=== PATIENT | female | born 1970 | race Caucasian/White ===

== ENCOUNTER → 2016-06-05 | Outpatient (REF) | payer MEDICARE ==
[~2016-06-05] MED LIST: /ADVA50050 IN; ACETAMINOPHEN PO; ADV250INH INH; AMBI10TA PO; ASTE137S; ASTELIN NASAL INH; AUGM875T27 PO; CHAN0.5P6 PO; CIPR500T19 OR; COLA100C2 OR; COLA50CA3 PO; CRESTOR PO; CYCLOBENZAPRINE PO; FISHCAP PO; FLAG500T OR; FLEXARIL PO; FLOV110A IN; FLOVENT HFA INH; FLUTICASONE; HYDR-3716 PO; HYDROCODONE PO; IBUP600T OR; IBUPPOW25 PO; LEVOTHYROXINE PO; LOVA1CAP16 OR; LOVAZA PO; LYRI75CA PO; LYRICA PO; NEXIUM PO; OXYC-274 PO; OXYC-299 PO; OXYC30TA4 PO; PANT40TA2 PO; PERC5TAB6 PO; PERCOCET PO; SYNT75TA PO; TYLE325T5 PO; VENTOLIN INHALER INH; VICO5TAB OR; VICO5TAB16 PO; VICOBULK OR; VITA200010 PO; VITAMIN D PO; WARF-18 PO; ZANA2CAP PO; ZOFR20TA PO; [UNRECOGNIZED DRUG - OTHER]; albuterol inhaler INH; vicodin
[2016-06-05 17:35] LABS: ALBUMIN 4.1 GM/DL (3.2-5.2); PERCENT SATURATION 15.5 % (13.2-37.4)
[2016-06-05 18:08] LABS: INR 1.11
[2016-06-05 18:42] LABS: BASO % 0.5 % (0.0-1.0); EOS # 0.3 K/mm3 (0.0-0.50); EOS % 4.7 % (0.0-3.0); LARGE UNSTAINED CELL # 0.1 K/mm3 (0.0-0.4); LARGE UNSTAINED CELL % 1.7 % (0.0-4.0); LYMPH # 2.5 K/mm3 (1.5-4.5); LYMPH % 33.8 % (24.0-44.0); MEAN CORPUSCULAR HEMOGLOBIN 31.1 pg (27.0-33.0); MEAN CORPUSCULAR HGB CONC 34.3 g/dl (32.0-36.5); MEAN CORPUSCULAR VOLUME 90.7 fl (80.0-96.0); MONO # 0.3 K/mm3 (0.0-0.8); MONO % 4.3 % (0.0-5.0); NEUTROPHILS # 3.8 K/mm3 (1.8-7.7); NEUTROPHILS % 55.1 % (36.0-66.0); PLATELET COUNT, AUTOMATED 219 k/mm3 (150-450); RED CELL DISTRIBUTION WIDTH 12.5 % (11.5-14.5)
== END ==
LOC: M LABDRAWC 16:16
PROVIDERS: ATTEND Orthopaedic Surgery
DX: M25.559 Pain in unspecified hip (principal); M16.11 Unilateral primary osteoarthritis, right hip; F17.200 Nicotine dependence, unspecified, uncomplicated

== ENCOUNTER 2016-12-20 01:17 | Emergency (ER) | payer MEDICARE ==
[~2016-12-20] VITALS: Ht 165.1 cm; Wt 104.5 kg
[~2016-12-20 01:17] MED LIST changes: +OXYC-141 PO; -OXYC-299 PO; +PERC5TAB12 PO; -PERC5TAB6 PO
[2016-12-20] MEDS ORDERED: ONDANSETRON 4MG/2ML VIAL (J2405) IV ONE (02:15)
[2016-12-20] MEDS: MORPHINE 4 MG/ML 1ML SYRINGE IV PRN ×2 (02:40→04:51)
[2016-12-20] MEDS ORDERED: NS 1,000 ML IV SCH (02:44)
[2016-12-20] MEDS ORDERED: PROPOFOL 200 MG/20 ML VIAL IV PRN (02:45)
[2016-12-20] MEDS ORDERED: KETAMINE HCL 200 MG/20 ML VIAL IV ONE (02:45)
[2016-12-20 03:25] VITALS: O2SAT 100
[2016-12-20 03:55] VITALS: BP 117/59
[2016-12-20] MEDS ORDERED: OXYCODONE/APAP 5MG/325MG(BULK FOR ED) 1 TABLET PO ONE (05:00)
--- NOTE | 2016-12-20 08:11 | REP ---
Clinical: Post reduction. Technique: Portable AP view of the left hip. Comparison: 12/20/2016 at 02:24 a.m. Findings: The patient is status post left hip replacement and satisfactory reduction. No acute fracture identified. Impression: Satisfactory left hip reduction. Signed by Hilario Guo MD 12/20/2016 08:02 A
--- NOTE | 2016-12-20 08:14 | REP ---
Clinical: Trauma. Pop. Technique: AP and cross-table lateral views of the left hip. Findings: The patient demonstrates prior left hip replacement and there is superior dislocation of the femoral component. No acute fracture identified. Impression: Left hip dislocation. Signed by Hilario Guo MD 12/20/2016 08:05 A
== END 2016-12-20 06:13 | disposition home or self-care (01) ==
LOC: M ED 01:17 → EDBD 01:17 → M ED 06:13
DX: S73.005A Unspecified dislocation of left hip, initial encounter (principal); X50.9XXA Other and unspecified overexertion or strenuous movements or postures, initial encounter; Y92.019 Unspecified place in single-family (private) house as the place of occurrence of the external cause; Y93.89 Activity, other specified; Y99.8 Other external cause status; F17.210 Nicotine dependence, cigarettes, uncomplicated; Z91.040 Latex allergy status; Z88.0 Allergy status to penicillin; Z79.51 Long term (current) use of inhaled steroids; Z79.01 Long term (current) use of anticoagulants; Z79.899 Other long term (current) drug therapy
CPT/HCPCS: 27265; 73501; 73502; 93041; 96374; 96375; 96376; 99291; J2405

== ENCOUNTER → 2017-07-23 | Outpatient (REF) | payer MEDICARE ==
[2017-07-23 11:56] LABS: BASO # 0.1 10^3/uL (0.0-0.2); BASO % 0.6 % (0.0-1.0); EOS # 0.2 10^3/uL (0.0-0.50); EOS % 2.8 % (0.0-3.0); HEMATOCRIT 41.7 % (36.0-47.0); HEMOGLOBIN 13.9 g/dl (12.0-15.5); IMMATURE GRANULOCYTE % 0.2 % (0-3.0); LYMPH # 3.2 10^3/uL (1.5-4.5); LYMPH % 39.2 % (24.0-44.0); MEAN CORPUSCULAR HEMOGLOBIN 29.7 pg (27.0-33.0); MEAN CORPUSCULAR HGB CONC 33.3 g/dl (32.0-36.5); MEAN CORPUSCULAR VOLUME 89.1 fl (80.0-96.0); MONO # 0.5 10^3/uL (0.0-0.8); NEUTROPHILS # 4.2 10^3/uL (1.8-7.7); NEUTROPHILS % 51.2 % (36.0-66.0); PLATELET COUNT, AUTOMATED 209 10^3/uL (150-450); RED BLOOD COUNT 4.68 10^6/uL (4.00-5.40); RED CELL DISTRIBUTION WIDTH 13.8 % (11.5-14.5); WHITE BLOOD COUNT 8.1 10^3/uL (4.0-10.0)
[2017-07-23 12:28] LABS: ALBUMIN 4.1 GM/DL (3.2-5.2); ALBUMIN/GLOBULIN RATIO 1.05 (1.00-1.93); ALKALINE PHOSPHATASE 93 U/L (45-117); ALT/SGPT 58 U/L (12-78); ANION GAP 7 MEQ/L (8-16); AST/SGOT 39 U/L (7-37); BILIRUBIN,TOTAL 0.3 MG/DL (0.2-1.0); BLOOD UREA NITROGEN 13 MG/DL (7-18); CALCIUM LEVEL 8.9 MG/DL (8.5-10.1); CARBON DIOXIDE LEVEL 24 MEQ/L (21-32); CHLORIDE LEVEL 107 MEQ/L (98-107); CHOLESTEROL LEVEL 204 MG/DL (<200); CHOLESTEROL RISK RATIO 6.375 (<5); CREATININE FOR GFR 0.62 MG/DL (0.55-1.30); GLOMERULAR FILTRATION RATE > 60.0 (>58); GLUCOSE, FASTING 102 MG/DL (70-100); HDL CHOLESTEROL 32 MG/DL (>40); NON-HDL-C 172 MG/DL; POTASSIUM SERUM 4.3 MEQ/L (3.5-5.1); SODIUM LEVEL 138 MEQ/L (136-145); TRIGLYCERIDES LEVEL 939 MG/DL (<150)
== END ==
LOC: M SFHCCLAY 09:30
DX: E03.9 Hypothyroidism, unspecified (principal); E78.2 Mixed hyperlipidemia; R79.82 Elevated C-reactive protein (CRP)
CPT/HCPCS: 84443

== ENCOUNTER → 2017-09-08 | Outpatient (REF) | payer MEDICARE ==
[2017-09-08 20:01] LABS: CHOLESTEROL LEVEL 163 MG/DL (<200); CHOLESTEROL RISK RATIO 4.657 (<5); HDL CHOLESTEROL 35 MG/DL (>40); NON-HDL-C 128 MG/DL; TRIGLYCERIDES LEVEL 547 MG/DL (<150)
== END ==
LOC: M SFHCCLAY 13:35
DX: E78.2 Mixed hyperlipidemia (principal); E03.9 Hypothyroidism, unspecified
CPT/HCPCS: 84443

== ENCOUNTER → 2018-06-16 | Outpatient (REF) | payer MEDICARE ==
[~2018-06-16] MED LIST changes: -ZOFR20TA PO; +ZOFR4TAB16 PO
[2018-06-16 18:24] LABS: ALBUMIN 4.1 GM/DL (3.2-5.2); ALT/SGPT 55 U/L (12-78); BILIRUBIN,TOTAL 0.3 MG/DL (0.2-1.0); BLOOD UREA NITROGEN 15 MG/DL (7-18); CALCIUM LEVEL 8.8 MG/DL (8.5-10.1); CARBON DIOXIDE LEVEL 27 MEQ/L (21-32); CHLORIDE LEVEL 105 MEQ/L (98-107); CHOLESTEROL LEVEL 157 MG/DL (<200); CHOLESTEROL RISK RATIO 5.233 (<5); CREATININE FOR GFR 0.67 MG/DL (0.55-1.30); FREE T4 1.32 NG/DL (0.76-1.46); GLOMERULAR FILTRATION RATE > 60.0 (>58); GLUCOSE, FASTING 85 MG/DL (70-100); HDL CHOLESTEROL 30 MG/DL (>40); NON-HDL-C 127 MG/DL; POTASSIUM SERUM 4.8 MEQ/L (3.5-5.1); SODIUM LEVEL 139 MEQ/L (136-145); TOTAL PROTEIN 7.2 GM/DL (6.4-8.2); TRIGLYCERIDES LEVEL 446 MG/DL (<150)
[2018-06-16 18:45] LABS: BASO # 0.1 10^3/uL (0.0-0.2); BASO % 0.6 % (0.0-1.0); EOS # 0.2 10^3/uL (0.0-0.50); EOS % 2.8 % (0.0-3.0); HEMATOCRIT 42.1 % (36.0-47.0); LYMPH % 35.9 % (24.0-44.0); MEAN CORPUSCULAR HEMOGLOBIN 30.3 pg (27.0-33.0); MEAN CORPUSCULAR HGB CONC 33.3 g/dl (32.0-36.5); MEAN CORPUSCULAR VOLUME 91.1 fl (80.0-96.0); MONO # 0.7 10^3/uL (0.0-0.8); MONO % 8.5 % (0.0-5.0); NEUTROPHILS # 4.3 10^3/uL (1.8-7.7); NEUTROPHILS % 51.8 % (36.0-66.0); PLATELET COUNT, AUTOMATED 226 10^3/uL (150-450); RED BLOOD COUNT 4.62 10^6/uL (4.00-5.40); WHITE BLOOD COUNT 8.3 10^3/uL (4.0-10.0)
[2018-06-16 19:00] LABS: HEMOGLOBIN A1c 5.9 %
== END ==
LOC: M SFHCCLAY 11:15
PROVIDERS: ATTEND Nurse Practitioner Family
DX: Z13.1 Encounter for screening for diabetes mellitus (principal); E03.9 Hypothyroidism, unspecified; E78.2 Mixed hyperlipidemia; R79.82 Elevated C-reactive protein (CRP); E83.42 Hypomagnesemia; Z79.01 Long term (current) use of anticoagulants

== ENCOUNTER → 2018-07-13 | Outpatient (CLI) | payer MEDICARE ==
[~2018-07-13] MED LIST changes: -/ADVA50050 IN; +ADVA1AER2 IN; +OXYC1TAB23 PO; -PERCOCET PO
--- NOTE | 2018-07-13 10:15 | REPMRS ---
Patient History The patient states she has not had a clinical breast exam in over a year. Patient is postmenopausal. Family history of unknown cancer at age 50 or over in paternal grandmother. Taking unspecified hormones for 5 years. Digital Mammo Screening Bilat: July 13, 2018 - Exam #: [id number] Bilateral CC and MLO view(s) were taken. Technologist: Renee Wilkins, Technologist Prior study comparison: December 29, 2013, bilateral digital mammo screening bilat performed at [facility]. FINDINGS: There are scattered fibroglandular densities. There has been no change in the appearance of the mammogram from the prior studies. There is a mild amount of scattered fibroglandular density which is fairly symmetric. There is no interval development of dominant mass, architectural distortion, or clustered microcalcification suggestive of malignancy. 3-D tomosynthesis shows no additional findings. Assessment: BI-RADS/ACR category 1 mammogram. Negative Mammogram. Recommendation Routine screening mammogram of both breasts in 1 year (for women over age 40). This patient's Lifetime Breast Cancer RIsk is estimated at 7.9 %. This mammogram was interpreted with the aid of an FDA-approved computer-aided dectection system. Electronically Signed By: Larry Jimenez MD 07/13/18 1014
== END ==
LOC: M RAD 09:24
PROVIDERS: ATTEND Nurse Practitioner Family
DX: Z12.31 Encounter for screening mammogram for malignant neoplasm of breast (principal); Z78.0 Asymptomatic menopausal state; Z79.890 Hormone replacement therapy

== ENCOUNTER → 2019-03-17 | Outpatient (REF) | payer MEDICARE ==
[2019-03-17 17:31] LABS: BASO % 0.4 % (0.0-1.0); EOS # 0.2 10^3/uL (0.0-0.5); EOS % 2.5 % (0.0-3.0); HEMATOCRIT 42.9 % (36.0-47.0); HEMOGLOBIN 14.5 g/dl (12.0-15.5); LYMPH # 3.6 10^3/uL (1.5-5.0); LYMPH % 38.6 % (24.0-44.0); MEAN CORPUSCULAR HEMOGLOBIN 30.7 pg (27.0-33.0); MEAN CORPUSCULAR HGB CONC 33.8 g/dl (32.0-36.5); MEAN CORPUSCULAR VOLUME 90.9 fl (80.0-96.0); MONO # 0.6 10^3/uL (0.0-0.8); MONO % 6.1 % (0.0-5.0); NEUTROPHILS # 4.9 10^3/uL (1.5-8.5); PLATELET COUNT, AUTOMATED 249 10^3/uL (150-450); RED BLOOD COUNT 4.72 10^6/uL (4.00-5.40); WHITE BLOOD COUNT 9.4 10^3/uL (4.0-10.0)
[2019-03-17 17:39] LABS: ALBUMIN 4.3 GM/DL (3.2-5.2); ALT/SGPT 42 U/L (12-78); BILIRUBIN,TOTAL 0.4 MG/DL (0.2-1.0); BLOOD UREA NITROGEN 16 MG/DL (7-18); CALCIUM LEVEL 9.2 MG/DL (8.5-10.1); CARBON DIOXIDE LEVEL 25 MEQ/L (21-32); CHLORIDE LEVEL 109 MEQ/L (98-107); CHOLESTEROL LEVEL 228 MG/DL (<200); CHOLESTEROL RISK RATIO 5.066 (<5); CREATININE FOR GFR 0.63 MG/DL (0.55-1.30); FREE T4 1.13 NG/DL (0.76-1.46); GLOMERULAR FILTRATION RATE > 60.0 (>51); GLUCOSE, FASTING 96 MG/DL (70-100); HDL CHOLESTEROL 45 MG/DL (>40); MAGNESIUM LEVEL 1.9 MG/DL (1.8-2.4); NON-HDL-C 183 MG/DL; SODIUM LEVEL 141 MEQ/L (136-145); TOTAL PROTEIN 7.6 GM/DL (6.4-8.2); TRIGLYCERIDES LEVEL 499 MG/DL (<150)
== END ==
LOC: M SFHCCLAY 13:11
PROVIDERS: ATTEND Nurse Practitioner Family
DX: E78.2 Mixed hyperlipidemia (principal); E03.9 Hypothyroidism, unspecified; E83.42 Hypomagnesemia
CPT/HCPCS: 80053; 80061; 83735; 84439; 84443; 85025; G0463

== ENCOUNTER → 2019-04-22 | Outpatient (REF) | payer MEDICARE ==
[2019-04-22 16:07] LABS: BASO % 0.4 % (0.0-1.0); EOS # 0.2 10^3/uL (0.0-0.5); EOS % 2.4 % (0.0-3.0); HEMATOCRIT 42.9 % (36.0-47.0); HEMOGLOBIN 14.3 g/dl (12.0-15.5); LYMPH # 2.4 10^3/uL (1.5-5.0); LYMPH % 30.1 % (24.0-44.0); MEAN CORPUSCULAR HEMOGLOBIN 30.6 pg (27.0-33.0); MEAN CORPUSCULAR HGB CONC 33.3 g/dl (32.0-36.5); MEAN CORPUSCULAR VOLUME 91.7 fl (80.0-96.0); MONO # 0.6 10^3/uL (0.0-0.8); MONO % 7.1 % (0.0-5.0); NEUTROPHILS # 4.8 10^3/uL (1.5-8.5); NEUTROPHILS % 59.6 % (36.0-66.0); PLATELET COUNT, AUTOMATED 238 10^3/uL (150-450); RED BLOOD COUNT 4.68 10^6/uL (4.00-5.40); WHITE BLOOD COUNT 8.1 10^3/uL (4.0-10.0)
[2019-04-22 16:22] LABS: ALBUMIN 4.5 GM/DL (3.2-5.2); BILIRUBIN,DIRECT 0.1 MG/DL (0.0-0.2); BILIRUBIN,TOTAL 0.5 MG/DL (0.2-1.0); PERCENT SATURATION 17.7 % (13.2-45.0); TOTAL PROTEIN 7.7 GM/DL (6.4-8.2)
[2019-04-22 16:41] LABS: HEMOGLOBIN A1c 5.8 %
== END ==
LOC: M LABDRWCV 15:53
PROVIDERS: ATTEND Orthopaedic Surgery
DX: Z01.818 Encounter for other preprocedural examination (principal); Z96.649 Presence of unspecified artificial hip joint; R73.03 Prediabetes; T84.84XA Pain due to internal orthopedic prosthetic devices, implants and grafts, initial encounter

== ENCOUNTER → 2019-05-04 | Outpatient (REF) | payer MEDICARE ==
[2019-05-04 17:03] LABS: HEMOGLOBIN A1c 5.7 %
[2019-05-04 19:40] LABS: ALBUMIN 4.1 GM/DL (3.2-5.2); ALT/SGPT 750 U/L (12-78); BILIRUBIN,TOTAL 0.7 MG/DL (0.2-1.0); BLOOD UREA NITROGEN 10 MG/DL (7-18); CALCIUM LEVEL 9.2 MG/DL (8.5-10.1); CARBON DIOXIDE LEVEL 28 MEQ/L (21-32); CHLORIDE LEVEL 106 MEQ/L (98-107); CHOLESTEROL LEVEL 228 MG/DL (<200); CREATININE FOR GFR 0.61 MG/DL (0.55-1.30); GLOMERULAR FILTRATION RATE > 60.0 (>51); GLUCOSE, FASTING 84 MG/DL (70-100); HDL CHOLESTEROL 48 MG/DL (>40); HEPATITIS B SURFACE ANTIGEN NEGATIVE (NEGATIVE); LDL CHOLESTEROL 124 MG/DL (<100); NON-HDL-C 180 MG/DL; POTASSIUM SERUM 4.2 MEQ/L (3.5-5.1); SODIUM LEVEL 142 MEQ/L (136-145); TOTAL PROTEIN 7.6 GM/DL (6.4-8.2); TRIGLYCERIDES LEVEL 278 MG/DL (<150)
== END ==
LOC: M SFHCCLAY 11:53
PROVIDERS: ATTEND Nurse Practitioner Family
DX: E78.2 Mixed hyperlipidemia (principal); R73.01 Impaired fasting glucose

== ENCOUNTER → 2019-05-12 | Outpatient (CLI) | payer MEDICARE ==
--- NOTE | 2019-05-12 08:51 | REP ---
Abdominal right upper quadrant ultrasound for elevated liver function tests: The gallbladder is contracted. The patient being n.p.o. for greater than 10 hours. The gallbladder wall is thickened, however, this could be artifact from under distension. There is no intrahepatic or extrahepatic biliary duct dilatation. The common biliary duct measures 5.4 mm in diameter. The hepatic parenchyma is mildly echogenic compatible with hepato steatosis. The liver is enlarged measuring 21.6 cm craniocaudad in the midclavicular line. There are no hepatic masses. However, periportal lymph nodes are identified, borderline enlarged measuring up to 1 cm in diameter. The visualized areas of the pancreas are unremarkable. Portions of the pancreas are obscured by bowel gas. The right kidney is normal size measuring 10.1 x 6 by 1 x 4.9 cm. There is no hydronephrosis or calculus. There is no right renal solid or cystic mass. 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 The abdominal aorta is unremarkable. There is no right upper quadrant free fluid. Impression: The gallbladder is contracted in spite of being n.p.o. for at least 10 hours. The gallbladder wall is thickened, however, this may be artifact from non distension. Depending on symptoms, consider follow-up radionuclide biliary scan. There is no cholelithiasis or biliary duct dilatation. Hepato steatosis and hepatomegaly. No hepatic masses. Borderline enlarged periportal nodes. Electronically Signed by Sean Mendoza MD 05/12/2019 08:43 A
== END ==
LOC: M RAD 07:24
PROVIDERS: ATTEND Nurse Practitioner Family
DX: R94.5 Abnormal results of liver function studies (principal)

== ENCOUNTER → 2019-05-13 | Outpatient (CLI) | payer MEDICARE ==
--- NOTE | 2019-05-13 10:47 | REP ---
Radionuclide hepatobiliary scan and gallbladder ejection fraction: Comparison is 09/26/2011. Initially the the patient had abdomen/pelvis CT of 07/21/2013. Hepatobiliary scan: Imaging is performed of five intervals after intravenous injection of 6.6 mCi of technetium 99m mebrofenin. There is common duct radiolabeling at 15 minutes. There is small bowel radiolabeling of 15 minutes. There is gallbladder radiolabeling at 30 minutes. There is normal hepatic washout. Impression: There is no cystic duct or common duct obstruction. Gallbladder ejection fraction: Imaging is performed for an additional hour at 2-minute intervals after having the the patient consume 8 ounces of Ensure Enlive. 860 minutes the gallbladder ejection fraction is 59%. Normal ejection fraction is a value greater than 35%. Electronically Signed by Sean Mendoza MD 05/13/2019 10:39 A
== END ==
LOC: M RAD 07:36
PROVIDERS: ATTEND Nurse Practitioner Family
DX: R93.2 Abnormal findings on diagnostic imaging of liver and biliary tract (principal)
CPT/HCPCS: 78227; A9537; J2805

== ENCOUNTER → 2019-05-27 | Outpatient (REF) | payer MEDICARE ==
[2019-05-27 16:55] LABS: ALBUMIN 3.9 GM/DL (3.2-5.2); BILIRUBIN,DIRECT 0.2 MG/DL (0.0-0.2); BILIRUBIN,TOTAL 0.4 MG/DL (0.2-1.0); TOTAL PROTEIN 7.6 GM/DL (6.4-8.2)
== END ==
LOC: M SFHCCLAY 09:46
PROVIDERS: ATTEND Nurse Practitioner Family
DX: R94.5 Abnormal results of liver function studies (principal)

== ENCOUNTER → 2019-09-16 | Outpatient (REF) | payer MEDICARE ==
[2019-09-16 17:42] LABS: HEMATOCRIT 45.1 % (36.0-47.0); HEMOGLOBIN 14.8 g/dl (12.0-15.5); MEAN CORPUSCULAR HEMOGLOBIN 30.3 pg (27.0-33.0); MEAN CORPUSCULAR HGB CONC 32.8 g/dl (32.0-36.5); MEAN CORPUSCULAR VOLUME 92.4 fl (80.0-96.0); PLATELET COUNT, AUTOMATED 265 10^3/uL (150-450); RED BLOOD COUNT 4.88 10^6/uL (4.00-5.40); WHITE BLOOD COUNT 10.4 10^3/uL (4.0-10.0)
[2019-09-16 18:14] LABS: ALT/SGPT 75 U/L (12-78); BILIRUBIN,TOTAL 0.4 MG/DL (0.2-1.0); BLOOD UREA NITROGEN 17 MG/DL (7-18); CALCIUM LEVEL 9.1 MG/DL (8.5-10.1); CARBON DIOXIDE LEVEL 25 MEQ/L (21-32); CHLORIDE LEVEL 106 MEQ/L (98-107); CHOLESTEROL LEVEL 275 MG/DL (<200); CHOLESTEROL RISK RATIO 7.432 (<5); CREATININE FOR GFR 0.72 MG/DL (0.55-1.30); FREE T4 2.05 NG/DL (0.76-1.46); GLOMERULAR FILTRATION RATE > 60.0 (>51); GLUCOSE, FASTING 117 MG/DL (70-100); HDL CHOLESTEROL 37 MG/DL (>40); NON-HDL-C 238 MG/DL; POTASSIUM SERUM 4.2 MEQ/L (3.5-5.1); SODIUM LEVEL 140 MEQ/L (136-145); THYROID STIMULATING HORMONE 0.647 uIU/ML (0.358-3.740); TOTAL PROTEIN 7.7 GM/DL (6.4-8.2); TRIGLYCERIDES LEVEL 466 MG/DL (<150)
[2019-09-16 19:11] LABS: HEMOGLOBIN A1c 5.9 %
[2019-09-16 19:22] LABS: ATYPICAL LYMPH 2 % (0-5); EOSINOPHILS 1 % (0-3); LYMPHOCYTES 49 % (16-44); MONOCYTES 2 % (0-5); NEUTROPHILS 45 % (28-66); PLATELET ESTIMATE NORMAL (NORMAL)
== END ==
LOC: M SFHCCLAY 13:43
PROVIDERS: ATTEND Nurse Practitioner Family
DX: E78.2 Mixed hyperlipidemia (principal); E03.9 Hypothyroidism, unspecified; R73.01 Impaired fasting glucose; R94.5 Abnormal results of liver function studies

== ENCOUNTER → 2020-05-07 | Outpatient (REF) | payer OTHER ==
[2020-05-07 17:00] LABS: ALBUMIN 3.8 GM/DL (3.2-5.2); ALT/SGPT 71 U/L (12-78); BILIRUBIN,TOTAL 0.3 MG/DL (0.2-1.0); BLOOD UREA NITROGEN 15 MG/DL (7-18); CALCIUM LEVEL 9.5 MG/DL (8.5-10.1); CARBON DIOXIDE LEVEL 30 MEQ/L (21-32); CHLORIDE LEVEL 106 MEQ/L (98-107); CHOLESTEROL LEVEL 222 MG/DL (<200); CREATININE FOR GFR 0.72 MG/DL (0.55-1.30); FREE T4 1.39 NG/DL (0.76-1.46); GLOMERULAR FILTRATION RATE > 60.0 (>51); GLUCOSE, FASTING 72 MG/DL (70-100); HDL CHOLESTEROL 49 MG/DL (>40); LDL CHOLESTEROL 136 MG/DL (<100); NON-HDL-C 173 MG/DL; POTASSIUM SERUM 4.5 MEQ/L (3.5-5.1); SODIUM LEVEL 141 MEQ/L (136-145); TOTAL PROTEIN 7.4 GM/DL (6.4-8.2); TRIGLYCERIDES LEVEL 183 MG/DL (<150)
[2020-05-07 17:51] LABS: HEMOGLOBIN A1c 4.8 %
== END ==
LOC: M SFHCCLAY 12:05
PROVIDERS: ATTEND Nurse Practitioner Family
DX: E03.9 Hypothyroidism, unspecified (principal); E78.2 Mixed hyperlipidemia; R73.01 Impaired fasting glucose; R94.5 Abnormal results of liver function studies; Z23 Encounter for immunization
CPT/HCPCS: 80053; 80061; 83036; 84439; 84443; 90682; G0008; G0463

== ENCOUNTER → 2020-05-19 | Outpatient (CLI) | payer OTHER ==
[~2020-05-19] MED LIST changes: +AZEL1SPR3 NARES; +BACL1TAB9 PO; +BREO1INH INH; +FLUT15.819; +LYRI150C PO; +NYST1POW9 TOP; +PANT40TA29 PO; +PRAV40TA2 PO; +SYNT112T2 PO; +TRAZ-257 PO; +TRIC145T22 PO
== END ==
LOC: M LABSMTC 09:59
PROVIDERS: ATTEND Anesthesiology
DX: Z01.812 Encounter for preprocedural laboratory examination (principal); Z20.822 Contact with and (suspected) exposure to COVID-19

== ENCOUNTER 2020-05-24 11:01 | Day surgery (SDC) | payer OTHER ==
[~2020-05-24] VITALS: Ht 162.6 cm; Wt 99.3 kg
[~2020-05-24 11:01] MED LIST changes: +NS 1,000 ML IV ONE
--- OUTSIDE RECORDS SUMMARY | 2020-05-24 11:05 | CCD ---
Author Author [facility] Organization [facility] Address Unknown Phone Unavailable Care Team Providers Care Computer Programming Manager Name Role Phone She Jaquez Unavailable PROBLEMS Type Condition ICD9-CM Code [id number] Code Onset Dates Condition S tatus SNOMED Code Notes Problem Hypothyroid E03.9 Active 10105613 Problem Degenerative disc disease, lumbar M51.36 Active 71296062 Problem Hx of hysterectomy Z90.710 Active 633745221 Problem Sinusitis chronic, frontal J32.1 Active 90579 002 Problem History of hip surgery Z98.89 Active 029395313 Problem History of back surgery Z98.89 Active 71886517 9 Problem Left hip pain M25.552 Active 68542469 Problem Elevated antinuclear antibody (CASTRO) level R76.8 Active 145372613 Problem Low magnesium levels E83.42 Active 486041241 Problem Primary osteoarthritis of right hip M16.11 Acti ve 571509888 Problem Chronic obstructive pulmonary disease, unspecified COPD ty pe J44.9 Active 74936467 Problem Acquired hypothyroidism E03.9 Active 82601036 2 Problem Environmental allergies Z91.09 Active 97176890 7 Problem Asthma, cough variant J45.991 Active 075190804 Problem Presence of left artificial hip joint Z96.642 Ac tive 114742882 Problem Smoker F17.200 Active 68242928 Problem Hyperlipidemia, mixed E78.2 Active 834382830 Problem Reflux esophagitis K21.0 Active 424096933 Problem Elevated C-reactive protein (CRP) R79.82 Active 596185892 Problem Other chronic pain G89.29 Active 46338777 Problem Hyperlipidemia, unspecified E78.5 Active 5582 2004 Problem Hypothyroidism, unspecified E03.9 Active 4093 0008 ALLERGIES Allergen (clinical drug ingredient) Drug/Non Drug Allergy do cumented on EMR Reaction Allergy Type Onset Date Status Penicillin Loose stools Non Drug Allergy Active Latex (for allergy use only) Dyspnea Drug Allergy Active amoxicillin / clavulanate Augmentin([facility] Code:[address]-45) Loose stools 10/31/10 Drug Allergy Active Avelox Yeast infection Non Drug Allergy Act cyril ENCOUNTERS from 1969 to 2020-05-10 Encounter Location Date Provider Diagnosis [facility] [address] [place] [address] Apr She Alberry Hyperlipidemia, mixed E78.2 ; Asthma, co ugh variant J45.991 ; Hypothyroid E03.9 ; Smoker F17.200 ; Degenerative disc disease, lumbar M51.36 ; Impaired fasting blood sugar R73.01 ; Encounter for immunization Z23 ; Elevated LFTs R94.5 ; Sinusitis chronic, frontal J32.1 ; Reflux esophagitis K21.0 and Encounter for screening colonoscopy Z12.11 IMMUNIZATIONS Vaccine Route Administration Date Status Influenza (18 yrs & older) Flublok IM Intramuscular May 07, 2020 Administered Influenza (18 yrs & older) Flublok IM Intramuscular Feb 17, 2019 Administered Pneumococcal 0.5mL (Prevnar 13) IM Intramuscular June 14, 2018 Administered Influenza (6mo & up) Fluzone IM Intramuscular June 14, 2018 Ad ministered Influenza (6mo & up) Fluzone IM Intramuscular Apr 17, 2016 Ad ministered Influenza (6mo & up) Fluzone IM Intramuscular Feb 03, 2014 Ad ministered Influenza (6mo & up) Fluzone IM Intramuscular Feb 03, 2013 Ad ministered Influenza (6mo & up) Fluzone IM Intramuscular Feb 17, 2012 Ad ministered Influenza (6mo & up) Fluzone IM Intramuscular Feb 03, 2011 Ad ministered SOCIAL HISTORY Tobacco Use: Social History Observation Description Date Details (start date - stop date) Current Smoker Sex Assigned At : Social History Observation Description Sex Assigned At Unknown Audit Question Answer Notes Total Score: 2 Interpretation: Alcohol Education Sexual Hx: Question Answer Notes Had sex in the last 12 months (vaginal, oral, or anal)? No Have you ever had an STD? No Drug and Alcohol Question Answer Notes Total Score: 0 Interpretation: No problems reported Alcohol Screening: Question Answer Notes Did you have a drink containing alcohol in the past year? Ye s Points 3 Interpretation Positive How often did you have six or more drinks on one occas ion in the past year? Less than monthly (1 point) How many drinks did you have on a typica l day when you were drinking in the past year? 1 or 2 (0 points) How often did you have a drink containing alcohol in t he past year? Two to four times a month (2 points) BMI Care Goal Follow-Up Question Answer Notes Above Normal BMI Follow-Up Dietary management educatio n, guidance, and counseling Tobacco Use: Question Answer Notes Are you a: current smoker Additional Findings: Tobacco User Heavy cigarette smoker (20 -39 cigs/day) Smoking Cessation Information Given 04/17/2016 Are you interested in quitting? Thinking about quitting Counseled the patient on smoking cessation, education provid ed 06/14/2018 REASON FOR REFERRAL No Information VITAL SIGNS Weight 226 lbs Apr, Height 64.5 in Apr, BMI 38.19 kg/m2 Apr, Heart Rate 82 /min Apr, Respiratory Rate 18 /min Apr, Temperature 97.9 degrees Fahrenheit Apr, Oximetry 97 Apr, Blood pressure systolic 113 mm Hg Apr, Blood pressure diastolic 69 mm Hg Apr, MEDICATIONS Medication SIG (Take, Route, Frequency, Duration) Notes Start Da te End Date Status Fenofibrate 145 MG 1 tablet with food Orally Once a day for 90 Active Fluticasone Propionate 50 MCG/ACT 1 spray in each nost ril Nasally bid for 30 day(s) Apr, Active Trazodone HCl 50 MG TAKE TWO TABLETS BY MOUTH AT BEDTIME NEEDED FOR SLEEP Orally once a day for 30 days Ac tive Azelastine HCl 0.1 % 1 puff in each nostril Nasally Twice a day for 30 day(s) Apr, Active Breo Ellipta 100-25 MCG/INH 1 puff Inhalation Once a day- J45.991 for 30 Active Pregabalin 150 MG 1 capsule Orally bid MDD #2 for 30 Days Active Levothyroxine Sodium 112 MCG 1 tablet in the morning o n an empty stomach Orally Once a day for 30 day(s) Active Pantoprazole Sodium 40 mg 1 tablet Orally Once a day for 30 Days Active Baclofen 20 MG 1 tablet with food or milk Orally every 8 hrs for 30 d ays Active Pravastatin Sodium 40 MG 1 tablet Orally Once a day for 90 day(s) Active Nystatin 888886 UNIT/GM 1 application Externally Twice a day Feb, Active PROCEDURES No Information RESULTS REASON FOR VISIT follow up MEDICAL (GENERAL) HISTORY Type Description Date Medical History Acid reflux Medical History Seasonal allergies Medical History High cholesterol Medical History Hypothyroidism Medical History Asthma - moderate persistent Medical History Vitamin D deficiency Medical History Chronic hoarseness, Direct l aryngoscopy of the throat ENT [place]....normal.... Medical History Vocal cord polyps Medical History Sciatica Medical History Headache Medical History TDAP updated in [facility] in 2015 Medical History Left hip dislocation 12/2016 Medical History Chronic back pain: [place] Surgical History Hysterectomy-1 ovary retained Surgical History lipoma removed from Right lower leg Surgical History L1-L2 fusion 07/21/12 Surgical History L3-L4 fusion 07/2013 Surgical History L THR 02/14/14 Surgical History Left hip revision 08/24/15 Surgical History right hip procedure/scope 03/29/2016 Surgical History R THR 07/2016 Surgical History Left hip revision: Sukumar 02/10/2017 Hospitalization History left hip 08/24/15 Hospitalization History Surgeries Goals Section No Information Health Concerns No Information MEDICAL EQUIPMENT No Information MENTAL STATUS No Information FUNCTIONAL STATUS No Information ASSESSMENTS Encounter Date Diagnosis Assessment Notes Treatment Notes Treatm ent Clinical Notes Apr, Hyperlipidemia, mixed (ICD-10 - E78.2) Apr, Asthma, cough variant (ICD-10 - J45.991) will need monitoring post-operatively regardingi oxygenation. Apr, Hypothyroid (ICD-10 - E03.9) stable Apr, Smoker (ICD-10 - F17.200) smoking cessation counseling given. Risks of smoking, including vascular disease (including stroke, heart attack), COPD ( including emphysema and chronic bronchitis), as well as reduced quality of life reviewed with pt Apr, Degenerative disc disease, lumbar (ICD-10 - M51. 36) s/p MRI and tx with SOS. Planned PT. Apr, Impaired fasting blood sugar (ICD-10 - R73.01) stable hgba1c. Apr, Encounter for immunization (ICD-10 - Z23) Apr, Elevated LFTs (ICD-10 - R94.5) Apr, Sinusitis chronic, frontal (ICD-10 - J32.1) Apr, Reflux esophagitis (ICD-10 - K21.0) Apr, Encounter for screening colonoscopy (ICD-10 - Z1 2.11) due for screening colonoscopy. referral placed. PLAN OF TREATMENT Medication Medication Name Sig Start Date Stop Date Pantoprazole Sodium 40 mg 1 tablet Orally Once a day for 30 Days Baclofen 20 MG 1 tablet with food or milk Orally every 8 hrs fo r 30 days Nystatin 629449 UNIT/GM 1 application Externally Twice a day Feb, Pravastatin Sodium 40 MG 1 tablet Orally Once a day for 90 day(s ) Fluticasone Propionate 50 MCG/ACT 1 spray in each nost ril Nasally bid for 30 day(s) Apr, Levothyroxine Sodium 112 MCG 1 tablet in the morning o n an empty stomach Orally Once a day for 30 day(s) Azelastine HCl 0.1 % 1 puff in each nostril Nasally Twice a day for 30 day(s) Apr, Treatment Notes Assessment Notes Clinical Notes Asthma, cough variant will need monitori ng post-operatively regardingi oxygenation. Hypothyroid stable Smoker smoking cessation co unseling given. Risks of smoking, including vascular disease (including stroke, heart attack), COPD ( including emphysema and chronic bronchitis), as well as reduced quality of life reviewed with pt Degenerative disc disease, lumbar s/p MR I and tx with SOS. Planned PT. Impaired fasting blood sugar stable hgba 1c. Encounter for screening colonoscopy due for screening colonoscopy. referral placed. Treatment Notes Test Name Order Date Immunization: Flublok Quadrivalent (18 years & older) 0.5mL IM (Influenza) 2020-05-10 Immunization: ActHIB (VFC) 0.5 mL IM (HIB) 2020-05-10 Next Appt Details 6 Months Reason: Provider Name:She Jaquez, 11-05 11:00:00 AM, [place], [address], Insurance Providers Payer Name Payer Address Payer Phone Insured Name Patient Relati onship to Insured Coverage Start Date Coverage End Date [employer] GOLD [address] [address] [facility] [id number] [place] [employer]
--- OUTSIDE RECORDS SUMMARY | 2020-05-24 11:05 | CCD ---
Author Author [facility] Organization [facility] Address Unknown Phone Unavailable Care Team Providers Care Top Carrier Name Role Phone She Jaquez Unavailable PROBLEMS Type Condition ICD9-CM Code [id number] Code Onset Dates Condition S tatus SNOMED Code Notes Problem Hypothyroid E03.9 Active 75387589 Problem Degenerative disc disease, lumbar M51.36 Active 42625242 Problem Hx of hysterectomy Z90.710 Active 155155097 Problem Sinusitis chronic, frontal J32.1 Active 28280 002 Problem History of hip surgery Z98.89 Active 300766531 Problem History of back surgery Z98.89 Active 66348800 9 Problem Left hip pain M25.552 Active 03798990 Problem Elevated antinuclear antibody (CASTRO) level R76.8 Active 930352252 Problem Low magnesium levels E83.42 Active 361752907 Problem Primary osteoarthritis of right hip M16.11 Acti ve 522046316 Problem Chronic obstructive pulmonary disease, unspecified COPD ty pe J44.9 Active 49449826 Problem Acquired hypothyroidism E03.9 Active 40389203 2 Problem Environmental allergies Z91.09 Active 12690634 7 Problem Asthma, cough variant J45.991 Active 197602952 Problem Presence of left artificial hip joint Z96.642 Ac tive 681537150 Problem Smoker F17.200 Active 75535491 Problem Hyperlipidemia, mixed E78.2 Active 164984379 Problem Reflux esophagitis K21.0 Active 803522869 Problem Elevated C-reactive protein (CRP) R79.82 Active 997722199 Problem Other chronic pain G89.29 Active 11401517 Problem Hyperlipidemia, unspecified E78.5 Active 5582 2004 Problem Hypothyroidism, unspecified E03.9 Active 4093 0008 ALLERGIES Allergen (clinical drug ingredient) Drug/Non Drug Allergy do cumented on EMR Reaction Allergy Type Onset Date Status Penicillin Loose stools Non Drug Allergy Active Latex (for allergy use only) Dyspnea Drug Allergy Active amoxicillin / clavulanate Augmentin([facility] Code:[address]-30) Loose stools 10/31/10 Drug Allergy Active Avelox Yeast infection Non Drug Allergy Act cyril ENCOUNTERS from 1969 to 2020-05-08 Encounter Location Date Provider Diagnosis [address] [address] Apr, She Jaquez IMMUNIZATIONS Vaccine Route Administration Date Status Influenza [...] Counseled the patient on smoking cessation, education [facility] ed 06/14/2018 REASON FOR REFERRAL No Information VITAL SIGNS No information MEDICATIONS Medication SIG (Take, Route, Frequency, Duration) [...] a day for 90 day(s) Active Nystatin 988621 UNIT/GM 1 application Externally Twice a day Feb, Active PROCEDURES No Information RESULTS No Results REASON FOR VISIT PA Nystatin 100,000unit/gm powder MEDICAL (GENERAL) HISTORY Type Description Date Medical History Acid reflux Medical History Seasonal allergies Medical History High cholesterol Medical History Hypothyroidism Medical History Asthma - moderate persistent Medical History Vitamin D deficiency Medical History Chronic hoarseness, Direct l aryngoscopy of the throat ENT [place]....normal.... Medical History Vocal cord polyps Medical History Sciatica Medical History Headache Medical History TDAP updated in [facility] in 2015 Medical History Left hip dislocation [...] No Information FUNCTIONAL STATUS No Information ASSESSMENTS No Information PLAN OF TREATMENT Medication Medication Name Sig Start Date Stop Date Pantoprazole Sodium 40 mg 1 tablet Orally Once a day for 30 Days Baclofen 20 MG 1 tablet with food or milk Orally every 8 hrs fo r 30 days Nystatin 459886 UNIT/GM 1 application Externally Twice a day [...] Twice a day for 30 day(s) Apr, Next Appt Details Provider Name:She Jaquez, 11-05 11:00:00 AM, [address] [place], [address], Insurance Providers Payer Name Payer Address Payer Phone Insured Name Patient Relati onship to Insured Coverage Start Date Coverage End Date JOHN [place] [address] [address] [facility] [phone] [place] [employer] self
--- OUTSIDE RECORDS SUMMARY | 2020-05-24 11:05 | CCD ---
Author Author [facility] Organization [facility] Address Unknown Phone Unavailable Care Team Providers Care Kelp Or Seagrass Gatherer Name Role Phone She Jaquez Unavailable PROBLEMS Type Condition ICD9-CM Code OSU54-JU Code Onset Dates Condition S tatus SNOMED Code Notes Problem Hypothyroid E03.9 Active 75078415 Problem Degenerative disc disease, lumbar M51.36 Active 19786438 Problem Hx of hysterectomy Z90.710 Active 865886214 Problem Sinusitis chronic, frontal J32.1 Active 47318 002 Problem History of hip surgery Z98.89 Active 904161000 Problem History of back surgery Z98.89 Active 23719506 9 Problem Left hip pain M25.552 Active 11808054 Problem Elevated antinuclear antibody (CASTRO) level R76.8 Active 218944843 Problem Low magnesium levels E83.42 Active 779379189 Problem Primary osteoarthritis of right hip M16.11 Acti ve 631488561 Problem Chronic obstructive pulmonary disease, unspecified COPD ty pe J44.9 Active 83669011 Problem Acquired hypothyroidism E03.9 Active 84618461 2 Problem Environmental allergies Z91.09 Active 16552417 7 Problem Asthma, cough variant J45.991 Active 840257550 Problem Presence of left artificial hip joint Z96.642 Ac tive 991451872 Problem Smoker F17.200 Active 51086628 Problem Hyperlipidemia, mixed E78.2 Active 335496260 Problem Reflux esophagitis K21.0 Active 048449470 Problem Elevated C-reactive protein (CRP) R79.82 Active 137937387 Problem Other chronic pain G89.29 Active 79566515 Problem Hyperlipidemia, unspecified E78.5 Active 5582 2004 Problem Hypothyroidism, unspecified E03.9 Active 4093 0008 ALLERGIES Allergen (clinical drug ingredient) Drug/Non Drug Allergy do cumented on EMR Reaction Allergy Type Onset Date Status Penicillin Loose stools Non Drug Allergy Active Latex (for allergy use only) Dyspnea Drug Allergy Active amoxicillin / clavulanate Augmentin([facility] Code:[address]-99) Loose stools 10/31/10 Drug Allergy Active Avelox Yeast infection Non Drug Allergy Act cyril ENCOUNTERS from 1969 to 2020-03-29 Encounter Location Date Provider Diagnosis [facility] [address] [place] [address] Mar She Jaquez IMMUNIZATIONS Vaccine Route Administration Date [...] Notes Start Da te End Date Status Pravastatin Sodium 40 MG 1 tablet Orally Once a day for 90 day(s ) Sep, Active Pregabalin 150 MG 1 capsule Orally bid MDD #2 for 30 Days Active Pantoprazole Sodium 40 mg 1 tablet Orally Once a day for 30 Days Active Trazodone HCl 50 MG TAKE TWO TABLETS BY MOUTH AT BEDTIME NEEDED FOR SLEEP Orally once a day for 30 days Ac tive Breo Ellipta 100-25 MCG/INH 1 puff Inhalation Once a day- J45.991 for 30 Active Fenofibrate 145 MG 1 tablet with food Orally Once a day for 90 d ay(s) Mar, Active Levothyroxine Sodium 112 MCG 1 tablet in the morning o n an empty stomach Orally Once a day for 30 Days Active Baclofen 20 MG 1 tablet with food or milk Orally every 8 hrs for 30 d ays Active Nystatin 359411 UNIT/GM 1 application Externally Twice a day Feb, Active PROCEDURES No Information RESULTS No Results REASON FOR VISIT refill MEDICAL (GENERAL) HISTORY Type Description Date Medical History Acid reflux Medical History Seasonal allergies Medical History High cholesterol Medical History Hypothyroidism Medical History Asthma - moderate persistent Medical History Vitamin D deficiency Medical History Chronic hoarseness, Direct l aryngoscopy of the throat ENT [place]....normal.... Medical History Vocal cord polyps Medical History Sciatica Medical History Headache Medical History TDAP updated in [place] [facility] in 2015 Medical History Left hip [...] Medication Name Sig Start Date Stop Date Pravastatin Sodium 40 MG 1 tablet Orally Once a day for 90 day(s ) Sep, Levothyroxine Sodium 112 MCG 1 tablet in the morning o n an empty stomach Orally Once a day for 30 Days Baclofen 20 MG 1 tablet with food or milk Orally every 8 hrs fo r 30 days Fenofibrate 145 MG 1 tablet with food Orally Once a day for 90 day(s) Mar, Pantoprazole Sodium 40 mg 1 tablet Orally Once a day for 30 Days Trazodone HCl 50 MG TAKE TWO TABLETS BY MOUTH AT BEDTIME NEEDED FOR SLEEP Orally once a day for 30 days Pregabalin 150 MG 1 capsule Orally bid MDD #2 for 30 Days Breo Ellipta 100-25 MCG/INH 1 puff Inhalation Once a day- J45.99 1 for 30 Next Appt Details Provider Name:She Jaquez, 04-17 11:30:00 AM, [address] [place], [address], Insurance Providers Payer Name Payer Address Payer Phone Insured Name Patient Relati onship to Insured Coverage Start Date Coverage End Date [place] [address] [address] [facility] [phone] [place] [employer] self
--- OUTSIDE RECORDS SUMMARY | 2020-05-24 11:05 | CCD ---
Author Author [facility] Organization [facility] Address Unknown Phone Unavailable Care Team Providers Care Apparel Merchandiser Name Role Phone She Jaquez Unavailable PROBLEMS Type Condition ICD9-CM Code [id number] Code Onset Dates Condition S tatus W/U Status Risk SNOMED Code Notes Problem Hypothyroid E03.9 Active confirmed 33462176 Problem Degenerative disc disease, lumbar M51.36 Active confirmed 27068433 Problem Hx of hysterectomy Z90.710 Active confirmed 347314224 Problem Sinusitis chronic, frontal J32.1 Active confirmed 19534821 Problem History of hip surgery Z98.89 Active confirmed 674543062 Problem History of back surgery Z98.89 Active confirmed 080392553 Problem Left hip pain M25.552 Active confirmed 96947 002 Problem Elevated antinuclear antibody (CASTRO) level R76.8 Active confirmed 361896713 Problem Low magnesium levels E83.42 Active confirmed 472081575 Problem Primary osteoarthritis of right hip M16.11 Acti ve confirmed 460414679 Problem Chronic obstructive pulmonary disease, unspecified COPD ty pe J44.9 Active confirmed 10526147 Problem Acquired hypothyroidism E03.9 Active confirmed 645482518 Problem Environmental allergies Z91.09 Active confirmed 971852852 Problem Asthma, cough variant J45.991 Active confirmed 280389534 Problem Presence of left artificial hip joint Z96.642 Ac tive confirmed 379957850 Problem Smoker F17.200 Active confirmed 35422273 Problem Hyperlipidemia, mixed E78.2 Active confirmed 193889678 Problem Reflux esophagitis K21.0 Active confirmed 2 71796717 Problem Elevated C-reactive protein (CRP) R79.82 Active confirmed 809194452 Problem Other chronic pain G89.29 Active confirmed 8 1034635 Problem Hyperlipidemia, unspecified E78.5 Active confirmed 03327625 Problem Hypothyroidism, unspecified E03.9 Active confirmed 98403547 ALLERGIES Allergen (clinical drug ingredient) Drug/Non Drug Allergy do cumented on EMR Reaction Allergy Type Onset Date Status Penicillin Loose stools Non Drug Allergy Active Latex (for allergy use only) Dyspnea Drug Allergy Active amoxicillin / clavulanate Augmentin([facility] Code:[address]-96) Loose stools 10/31/10 Drug Allergy Active Avelox Yeast infection Non Drug Allergy Act cyril ENCOUNTERS from 1969 to 2020-05-21 Encounter Location Date Provider Diagnosis [facility] [address] [place] [address] May She Jaquez IMMUNIZATIONS Vaccine Route Administration Date [...] Counseled the patient on smoking cessation, education [facility] ed 06/14/2018 REASON FOR REFERRAL No Information [...] a day for 30 day(s) Apr, Active Nystatin 378145 UNIT/GM 1 application Externally Twice a day Feb, Active Breo Ellipta 100-25 MCG/INH 1 puff Inhalation Once a day- J45.991 for 30 Active Levothyroxine Sodium 112 MCG 1 tablet in the morning o n an empty stomach Orally Once a day for 30 day(s) Active Pravastatin Sodium 40 MG 1 tablet Orally Once a day for 90 day(s) Active Baclofen 20 MG 1 tablet with food or milk Orally every 8 hrs for 30 d ays Active Pregabalin 150 MG 1 capsule Orally bid MDD #2 for 30 Days Active Pantoprazole Sodium 40 mg 1 tablet Orally bid for 30 Days Active PROCEDURES No Information RESULTS No Results REASON FOR VISIT script MEDICAL (GENERAL) HISTORY Type Description Date Medical History Acid reflux Medical History Seasonal allergies Medical History High cholesterol Medical History Hypothyroidism Medical History Asthma - moderate persistent Medical History Vitamin D deficiency Medical History Chronic hoarseness, Direct l aryngoscopy of the throat ENT [place]....normal.... Medical History Vocal cord polyps Medical History Sciatica Medical History Headache Medical History TDAP updated in [facility] in 2015 Medical History Left hip dislocation [...] Once a day for 90 day(s ) Baclofen 20 MG 1 tablet with food or milk Orally every 8 hrs fo r 30 days Pantoprazole Sodium 40 mg 1 tablet Orally bid for 30 Days Nystatin 220602 UNIT/GM 1 application Externally Twice a day Feb, Fluticasone Propionate 50 MCG/ACT 1 spray in each nost ril Nasally bid for 30 day(s) Apr, Levothyroxine Sodium 112 MCG 1 tablet in the morning o n an empty stomach Orally Once a day for 30 day(s) Azelastine HCl 0.1 % 1 puff in each nostril Nasally Twice a day for 30 day(s) Apr, Next Appt Details Provider Name:She Jaquez, 2020-0 7- 11:00:00 AM, [address] [place], [address], Insurance Providers Payer Name Payer Address Payer Phone Insured Name Patient Relati onship to Insured Coverage Start Date Coverage End Date [employer] [address] [address] [facility] [phone] [place] [employer] self
--- OUTSIDE RECORDS SUMMARY | 2020-05-24 11:05 | CCD ---
Author Author [facility] Organization [facility] Address Unknown Phone Unavailable Care Team Providers Care Skein Winder Name Role Phone She Jaquez Unavailable PROBLEMS Type Condition ICD9-CM Code [id number] Code Onset Dates Condition S tatus SNOMED Code Notes Problem Hypothyroid E03.9 Active 42463035 Problem Degenerative disc disease, lumbar M51.36 Active 48850865 Problem Hx of hysterectomy Z90.710 Active 649631503 Problem Sinusitis chronic, frontal J32.1 Active 13614 002 Problem History of hip surgery Z98.89 Active 916464277 Problem History of back surgery Z98.89 Active 78765237 9 Problem Left hip pain M25.552 Active 25875061 Problem Elevated antinuclear antibody (CASTRO) level R76.8 Active 356026981 Problem Low magnesium levels E83.42 Active 018585208 Problem Primary osteoarthritis of right hip M16.11 Acti ve 691189130 Problem Chronic obstructive pulmonary disease, unspecified COPD ty pe J44.9 Active 36822770 Problem Acquired hypothyroidism E03.9 Active 19169750 2 Problem Environmental allergies Z91.09 Active 47953704 7 Problem Asthma, cough variant J45.991 Active 471104364 Problem Presence of left artificial hip joint Z96.642 Ac tive 635134356 Problem Smoker F17.200 Active 54495879 Problem Hyperlipidemia, mixed E78.2 Active 919259930 Problem Reflux esophagitis K21.0 Active 744850628 Problem Elevated C-reactive protein (CRP) R79.82 Active 789532189 Problem Other chronic pain G89.29 Active 14513640 Problem Hyperlipidemia, unspecified E78.5 Active 5582 2004 Problem Hypothyroidism, unspecified E03.9 Active 4093 0008 ALLERGIES Allergen (clinical drug ingredient) Drug/Non Drug Allergy do cumented on EMR Reaction Allergy Type Onset Date Status Penicillin Loose stools Non Drug Allergy Active Latex (for allergy use only) Dyspnea Drug Allergy Active amoxicillin / clavulanate Augmentin([facility] Code:[address]-02) Loose stools 10/31/10 Drug Allergy Active Avelox Yeast infection Non Drug Allergy Act cyril ENCOUNTERS from 1969 to 2020-05-01 Encounter Location Date Provider Diagnosis [facility] [address] [place] [address] Apr She Jaquez IMMUNIZATIONS Vaccine Route Administration Date [...] day for 90 day(s ) Sep, Active Fenofibrate 145 MG 1 tablet with food Orally Once a day for 90 Active Nystatin 640833 UNIT/GM 1 application Externally Twice a day Feb, Active Pantoprazole Sodium 40 mg 1 tablet Orally Once a day for 30 Days Active Pregabalin 150 MG 1 capsule Orally bid MDD #2 for 30 Days Active Baclofen 20 MG 1 tablet with food or milk Orally every 8 hrs for 30 d ays Active Levothyroxine Sodium 112 MCG 1 tablet in the morning o n an empty stomach Orally Once a day for 30 Days Active Trazodone HCl 50 MG TAKE TWO TABLETS BY MOUTH AT BEDTIME NEEDED FOR SLEEP Orally once a day for 30 days Ac tive Breo Ellipta 100-25 MCG/INH 1 puff Inhalation Once a day- J45.991 for 30 Active PROCEDURES No Information RESULTS No Results REASON FOR VISIT r/s appt MEDICAL (GENERAL) HISTORY Type Description Date Medical History Acid reflux Medical History Seasonal allergies Medical History High cholesterol Medical History Hypothyroidism Medical History Asthma - moderate persistent Medical History Vitamin D deficiency Medical History Chronic hoarseness, Direct l aryngoscopy of the throat ENT [place]....normal.... Medical History Vocal cord polyps Medical History Sciatica Medical History Headache Medical History TDAP updated in [facility] in 2015 Medical History Left hip [...] Orally once a day for 30 days Baclofen 20 MG 1 tablet with food or milk Orally every 8 hrs fo r 30 days Breo Ellipta 100-25 MCG/INH 1 puff Inhalation Once a day- J45.99 1 for 30 Pantoprazole Sodium 40 mg 1 tablet Orally Once a day for 30 Days Fenofibrate 145 MG 1 tablet with food Orally Once a day for 90 Pregabalin 150 MG 1 capsule Orally bid MDD #2 for 30 Days Next Appt Details Provider Name:She Jaquez, 2020-05-07 11:30:00 AM, [address] [place], [address], Insurance Providers Payer Name Payer Address Payer Phone Insured Name Patient Relati onship to Insured Coverage Start Date Coverage End Date [employer] [address] [address] [facility] [phone] [place] [employer] self
--- OUTSIDE RECORDS SUMMARY | 2020-05-24 11:05 | CCD ---
Author Author [facility] Organization [facility] Address Unknown Phone Unavailable Care Team Providers Care Document Image Technician Name Role Phone Juan Ferrer Unavailable PROBLEMS Type Condition ICD9-CM Code [id number] Code Onset Dates Condition S tatus SNOMED Code Notes Problem Hypothyroid E03.9 Active 13667287 Problem Degenerative disc disease, lumbar M51.36 Active 71651937 Problem Hx of hysterectomy Z90.710 Active 886680331 Problem Sinusitis chronic, frontal J32.1 Active 20003 002 Problem History of hip surgery Z98.89 Active 053328155 Problem History of back surgery Z98.89 Active 13291208 9 Problem Left hip pain M25.552 Active 05147344 Problem Elevated antinuclear antibody (CASTRO) level R76.8 Active 227956888 Problem Low magnesium levels E83.42 Active 138280486 Problem Primary osteoarthritis of right hip M16.11 Acti ve 121673597 Problem Chronic obstructive pulmonary disease, unspecified COPD ty pe J44.9 Active 10769829 Problem Acquired hypothyroidism E03.9 Active 62553273 2 Problem Environmental allergies Z91.09 Active 94990407 7 Problem Asthma, cough variant J45.991 Active 611860994 Problem Presence of left artificial hip joint Z96.642 Ac tive 197246215 Problem Smoker F17.200 Active 81569611 Problem Hyperlipidemia, mixed E78.2 Active 903441404 Problem Reflux esophagitis K21.0 Active 280859862 Problem Elevated C-reactive protein (CRP) R79.82 Active 829462393 Problem Other chronic pain G89.29 Active 76364582 Problem Hyperlipidemia, unspecified E78.5 Active 5582 2004 Problem Hypothyroidism, unspecified E03.9 Active 4093 0008 ALLERGIES Allergen (clinical drug ingredient) Drug/Non Drug Allergy do cumented on EMR Reaction Allergy Type Onset Date Status Penicillin Loose stools Non Drug Allergy Active Latex (for allergy use only) Dyspnea Drug Allergy Active amoxicillin / clavulanate Augmentin([facility] Code:[address]-93) Loose stools 10/31/10 Drug Allergy Active Avelox Yeast infection Non Drug Allergy Act cyril ENCOUNTERS from 1969 to 2020-03-23 Encounter Location Date Provider Diagnosis [facility] [address] [place] [address] Mar Juan Huizenga Hyperlipidemia, mixed E78.2 IMMUNIZATIONS Vaccine Route Administration Date Status Influenza [...] Notes Start Da te End Date Status Levothyroxine Sodium 112 MCG 1 tablet in the morning o n an empty stomach Orally Once a day for 30 Days Active Pregabalin 150 MG 1 capsule Orally bid MDD #2 for 30 Days Active Trazodone HCl 50 MG TAKE TWO TABLETS BY MOUTH AT BEDTIME NEEDED FOR SLEEP Orally once a day for 30 days Ac tive Baclofen 20 MG 1 tablet with food or milk Orally every 8 hrs for 30 d ays Active Breo Ellipta 100-25 MCG/INH 1 puff Inhalation Once a day- J45.991 for 30 Active Pravastatin Sodium 40 MG 1 tablet Orally Once a day for 90 day(s ) Sep, Active Pantoprazole Sodium 40 mg 1 tablet Orally Once a day for 30 Days Active Fenofibrate 145 MG 1 tablet with food Orally Once a day for 90 d ay(s) Mar, Active Nystatin 018541 UNIT/GM 1 application Externally Twice a day Feb, Active PROCEDURES No Information RESULTS No Results REASON FOR VISIT renewal MEDICAL (GENERAL) HISTORY Type Description Date Medical History Acid reflux Medical History Seasonal allergies Medical History High cholesterol Medical History Hypothyroidism Medical History Asthma - moderate persistent Medical History Vitamin D deficiency Medical History Chronic hoarseness, Direct l aryngoscopy of the throat ENT [place]....normal.... Medical History Vocal cord polyps Medical History Sciatica Medical History Headache Medical History TDAP updated in [place] [facility] in 2015 Medical History Left hip [...] Notes Treatment Notes Treatm ent Clinical Notes Mar, Hyperlipidemia, mixed (ICD-10 - E78.2) PLAN OF TREATMENT Medication Medication Name Sig Start Date Stop Date Levothyroxine Sodium 112 MCG 1 tablet in the morning o n an empty stomach Orally Once a day for 30 Days Pantoprazole Sodium 40 mg 1 tablet Orally Once a day for 30 Days Fenofibrate 145 MG 1 tablet with food Orally Once a day for 90 day(s) Mar, Pravastatin Sodium 40 MG 1 tablet Orally Once a day for 90 day(s ) Sep, Trazodone HCl 50 MG TAKE TWO TABLETS BY MOUTH AT BEDTIME NEEDED FOR SLEEP Orally once a day for 30 days Baclofen 20 MG 1 tablet with food or milk Orally every 8 hrs fo r 30 days Pregabalin 150 MG 1 capsule Orally bid MDD #2 for 30 Days Breo Ellipta 100-25 MCG/INH 1 puff Inhalation Once a day- J45.99 1 for 30 Next Appt Details Provider Name:She Jaquez, 1-05 11:30:00 AM, [place], [address], Insurance Providers Payer Name Payer Address Payer Phone Insured Name Patient Relati onship to Insured Coverage Start Date Coverage End Date [facility] [address] [address] [facility] [id number] [place] [employer] self
--- OUTSIDE RECORDS SUMMARY | 2020-05-24 11:06 | CCD ---
Author Author [facility] Organization [facility] Address Unknown Phone Unavailable Care Team Providers Care Meter Calibrator Name Role Phone Yaworski, Ania WIRE MACHINE OPERATOR Unavailable Unavailable Yaworski, Ania WIRE MACHINE OPERATOR Unavailable Unavailable Yaworski, Ania WIRE MACHINE OPERATOR Unavailable Unavailable Yaworski, Ania WIRE MACHINE OPERATOR Unavailable Unavailable Yaworski, Ania WIRE MACHINE OPERATOR Unavailable Unavailable Yaworski, Ania WIRE MACHINE OPERATOR Unavailable Unavailable Yaworski, Ania WIRE MACHINE OPERATOR Unavailable Unavailable Yaworski, Ania WIRE MACHINE OPERATOR Unavailable Unavailable Yaworski, Ania WIRE MACHINE OPERATOR Unavailable Unavailable Yaworski, Ania WIRE MACHINE OPERATOR Unavailable Unavailable Yaworski, Ania WIRE MACHINE OPERATOR Unavailable Unavailable Yaworski, Ania WIRE MACHINE OPERATOR Unavailable Unavailable Yaworski, Ania WIRE MACHINE OPERATOR Unavailable Unavailable Yaworski, Ania WIRE MACHINE OPERATOR Unavailable Unavailable Yaworski, Ania WIRE MACHINE OPERATOR Unavailable Unavailable Yaworski, Ania WIRE MACHINE OPERATOR Unavailable Unavailable Yaworski, Ania WIRE MACHINE OPERATOR Unavailable Unavailable Yaworski, Ania WIRE MACHINE OPERATOR Unavailable Unavailable Yaworski, Ania WIRE MACHINE OPERATOR Unavailable Unavailable Yaworski, Ania WIRE MACHINE OPERATOR Unavailable Unavailable Yaworski, Ania WIRE MACHINE OPERATOR Unavailable Unavailable Yaworski, Ania WIRE MACHINE OPERATOR Unavailable Unavailable Yaworski, Ania WIRE MACHINE OPERATOR Unavailable Unavailable Yaworski, Ania WIRE MACHINE OPERATOR Unavailable Unavailable Talia Jaquez SQUASH CENTRE MANAGER Unavailable Unavailable Talia Jaquez SQUASH CENTRE MANAGER Unavailable Unavailable Talia Jaqueziffer SQUASH CENTRE MANAGER Unavailable Unavailable Talia Jaquez She SQUASH CENTRE MANAGER Unavailable Unavailable Alberry, D She SQUASH CENTRE MANAGER Unavailable Unavailable Alberry, D She SQUASH CENTRE MANAGER Unavailable Unavailable Alberry, D She SQUASH CENTRE MANAGER Unavailable Unavailable Alberry, D She SQUASH CENTRE MANAGER Unavailable Unavailable Alberry, D She SQUASH CENTRE MANAGER Unavailable Unavailable Alberry, D She SQUASH CENTRE MANAGER Unavailable Unavailable Alberry, D She SQUASH CENTRE MANAGER Unavailable Unavailable Alberry, D She SQUASH CENTRE MANAGER Unavailable Unavailable Alberry, D She SQUASH CENTRE MANAGER Unavailable Unavailable Alberry, D She SQUASH CENTRE MANAGER Unavailable Unavailable Alberry, D She SQUASH CENTRE MANAGER Unavailable Unavailable Alberry, D She SQUASH CENTRE MANAGER Unavailable Unavailable Alberry, D She SQUASH CENTRE MANAGER Unavailable Unavailable Alberry, D She SQUASH CENTRE MANAGER Unavailable Unavailable Alberry, D She SQUASH CENTRE MANAGER Unavailable Unavailable Alberry, D She SQUASH CENTRE MANAGER Unavailable Unavailable Alberry, D She SQUASH CENTRE MANAGER Unavailable Unavailable Alberry, D She SQUASH CENTRE MANAGER Unavailable Unavailable Alberry, D She SQUASH CENTRE MANAGER Unavailable Unavailable Alberry, D She SQUASH CENTRE MANAGER Unavailable Unavailable Alberry, D She SQUASH CENTRE MANAGER Unavailable Unavailable Alberry, D She SQUASH CENTRE MANAGER Unavailable Unavailable Alberry, D She SQUASH CENTRE MANAGER Unavailable Unavailable Alberry, D She SQUASH CENTRE MANAGER Unavailable Unavailable Alberry, D She SQUASH CENTRE MANAGER Unavailable Unavailable Alberry, D She SQUASH CENTRE MANAGER Unavailable Unavailable Alberry, D She SQUASH CENTRE MANAGER Unavailable Unavailable Alberry, D She SQUASH CENTRE MANAGER Unavailable Unavailable Alberry, D She SQUASH CENTRE MANAGER Unavailable Unavailable Alberry, D She SQUASH CENTRE MANAGER Unavailable Unavailable Alberry, D She SQUASH CENTRE MANAGER Unavailable Unavailable Alberry, D She SQUASH CENTRE MANAGER Unavailable Unavailable Alberry, D She SQUASH CENTRE MANAGER Unavailable Unavailable Alberry, D She SQUASH CENTRE MANAGER Unavailable Unavailable Alberry, D She SQUASH CENTRE MANAGER Unavailable Unavailable Alberry, D She SQUASH CENTRE MANAGER Unavailable Unavailable Alberry, D She SQUASH CENTRE MANAGER Unavailable Unavailable Alberry, D She SQUASH CENTRE MANAGER Unavailable Unavailable Alberry, D She SQUASH CENTRE MANAGER Unavailable Unavailable Alberry, D She SQUASH CENTRE MANAGER Unavailable Unavailable Alberry, D She SQUASH CENTRE MANAGER Unavailable Unavailable Alberry, D She SQUASH CENTRE MANAGER Unavailable Unavailable Alberry, D She SQUASH CENTRE MANAGER Unavailable Unavailable Alberry, D She SQUASH CENTRE MANAGER Unavailable Unavailable Rishi Rendon MD Unavailable Unavailable Rishi Rendon MD Unavailable Unavailable Rishi Rendon MD Unavailable Unavailable Rishi Rendon MD Unavailable Unavailable Rishi Rendon MD Unavailable Unavailable Rishi Rendon MD Unavailable Unavailable Rishi Rendon MD Unavailable Unavailable Rishi Rendon MD Unavailable Unavailable Rendon, L Chano WOODSON Unavailable Unavailable Rendon, L Chano WOODSON Unavailable Unavailable Rendon, L Chano WOODSON Unavailable Unavailable Rendon, L Chano WOODSON Unavailable Unavailable Rendon, L Chano WOODSON Unavailable Unavailable Rendon, L Chano WOODSON Unavailable Unavailable Rendon, L Chano WOODSON Unavailable Unavailable Rendon, L Chano WOODSON Unavailable Unavailable Rendon, L Chano WOODSON Unavailable Unavailable Rendon, L Chano WOODSON Unavailable Unavailable Rendon, L Chano WOODSON Unavailable Unavailable Rendon, L Chano WOODSON Unavailable Unavailable Rendon, L Chano WOODSON Unavailable Unavailable Rendon, L Cahno WOODSON Unavailable Unavailable Rendon, L Chano WOODSON Unavailable Unavailable Rendon, L Chano WOODSON Unavailable Unavailable Rendon, L Chano WOODSON Unavailable Unavailable Rendon, L Chano WOODSON Unavailable Unavailable Rendon, L Chano WOODSON Unavailable Unavailable Rendon, L Chano WOODSON Unavailable Unavailable Rendon, L Chano WOODSON Unavailable Unavailable Rendon, L Chano WOODSON Unavailable Unavailable Rendon, L Chano WOODSON Unavailable Unavailable Rendon, L Chano WOODSON Unavailable Unavailable Rendon, L Chano WOODSON Unavailable Unavailable Rendon, L Chano WOODSON Unavailable Unavailable Rendon, L Chano WOODSON Unavailable Unavailable Rendon, L Chano WOODSON Unavailable Unavailable Rendon, L Chano WOODSON Unavailable Unavailable Rendon, L Chano WOODSON Unavailable Unavailable Rendon, L Chano WOODSON Unavailable Unavailable Rendon, L Chano WOODSON Unavailable Unavailable Rendon, L Chano WOODSON Unavailable Unavailable Rendon, L Chano WOODSON Unavailable Unavailable Rendon, L Chano WOODSON Unavailable Unavailable Rendon, L Chano WOODSON Unavailable Unavailable Rendon, L Chano WOODSON Unavailable Unavailable Rendon, L Chano WOODSON Unavailable Unavailable Rendon, L Chano WOODSON Unavailable Unavailable Mick, Bart Uribe MD Unavailable Unavailable Mick, Bart Uribe MD Unavailable Unavailable Mick, Bart Uribe MD Unavailable Unavailable Mick, Bart Uribe MD Unavailable Unavailable Mick, Bart Uribe MD Unavailable Unavailable Mick, Bart Uribe MD Unavailable Unavailable Mick, Bart Uribe MD Unavailable Unavailable Mick, Bart Uribe MD Unavailable Unavailable Mick, Bart Uribe MD Unavailable Unavailable Mick, Bart Uribe MD Unavailable Unavailable Mick, Bart Uribe MD Unavailable Unavailable Mick, Bart Uribe MD Unavailable Unavailable Mick, Bart Uribe MD Unavailable Unavailable Mick, Bart Uribe MD Unavailable Unavailable Mick, Bart Uribe MD Unavailable Unavailable Mick, Bart Uribe MD Unavailable Unavailable Mick, Bart Uribe MD Unavailable Unavailable Mick, Bart Uribe MD Unavailable Unavailable Mick, Bart Uribe MD Unavailable Unavailable Mick, Bart Uribe MD Unavailable Unavailable Mick, A Rony MD Unavailable Unavailable Mick, A Rony MD Unavailable Unavailable Mick, A Rony MD Unavailable Unavailable Mick, A Rony MD Unavailable Unavailable Mick, A Rony MD Unavailable Unavailable Mick, A Rony MD Unavailable Unavailable Mick, A Rony MD Unavailable Unavailable Mick, A Rony MD Unavailable Unavailable Mick, A Rony MD Unavailable Unavailable Mick, A Rony MD Unavailable Unavailable Mick, A Rony MD Unavailable Unavailable Mick, A Rony MD Unavailable Unavailable Mick, A Rony MD Unavailable Unavailable Mick, A Rony MD Unavailable Unavailable Mick, A Rony MD Unavailable Unavailable Mick, A Rony MD Unavailable Unavailable Mick, A Rony MD Unavailable Unavailable Mick, A Rony MD Unavailable Unavailable Mick, A Rony MD Unavailable Unavailable Mick, A Rony MD Unavailable Unavailable Mick, A Rony MD Unavailable Unavailable Mick, A Rony MD Unavailable Unavailable Mick, A Rony MD Unavailable Unavailable Mick, A Rony MD Unavailable Unavailable Mick, A Rony MD Unavailable Unavailable Mick, A Rony MD Unavailable Unavailable Mick, A Rony MD Unavailable Unavailable Mick, A Rony MD Unavailable Unavailable Mick, A Rony MD Unavailable Unavailable Mick, A Rony MD Unavailable Unavailable Mick, A Rony MD Unavailable Unavailable Mick, A Rony MD Unavailable Unavailable Mick, A Rony MD Unavailable Unavailable Mick, A Rony MD Unavailable Unavailable Mick, A Rony MD Unavailable Unavailable Mick, A Rony MD Unavailable Unavailable Mick, A Rony MD Unavailable Unavailable Mick, A Rony MD Unavailable Unavailable Mick, A Rony MD Unavailable Unavailable Mick, A Rony MD Unavailable Unavailable Mick, A Rony MD Unavailable Unavailable Mick, A Rony MD Unavailable Unavailable Mick, A Rony MD Unavailable Unavailable Mick, A Rony MD Unavailable Unavailable Mick, A Rony MD Unavailable Unavailable Mick, A Rony MD Unavailable Unavailable Mick, A Rony MD Unavailable Unavailable Mick, A Rony MD Unavailable Unavailable Mick, A Rony MD Unavailable Unavailable Mick, A Rony Unavailable Unavailable Mick, A Rony Unavailable Unavailable Scozzari, K Vita PA Unavailable Unavailable Scozzari, K Vita PA Unavailable Unavailable Scozzari, K Vita PA Unavailable Unavailable Scozzari, K Vita PA Unavailable Unavailable Scozzari, K Vita PA Unavailable Unavailable Scozzari, K Vita PA Unavailable Unavailable Scozzari, K Vita PA Unavailable Unavailable Scozzari, K Vita PA Unavailable Unavailable Scozzari, K Vita PA Unavailable Unavailable Scozzari, K Vita PA Unavailable Unavailable Scozzari, K Vita PA Unavailable Unavailable Scozzari, K Vita PA Unavailable Unavailable Scozzari, K Vita PA Unavailable Unavailable Scozzari, K Vita PA Unavailable Unavailable Scozzari, K Vita PA Unavailable Unavailable Scozzari, K Vita PA Unavailable Unavailable Scozzari, K Vita PA Unavailable Unavailable Scozzari, K Vita PA Unavailable Unavailable Scozzari, K Vita PA Unavailable Unavailable Scozzari, K Vita PA Unavailable Unavailable Scozzari, K Vita PA Unavailable Unavailable Scozzari, K Vita PA Unavailable Unavailable Scozzari, K Vita PA Unavailable Unavailable Scozzari, K Vita PA Unavailable Unavailable Scozzari, K Vita PA Unavailable Unavailable Scozzari, K Vita PA Unavailable Unavailable Scozzari, K Vita PA Unavailable Unavailable Scozzari, K Vita PA Unavailable Unavailable Scozzari, K Vita PA Unavailable Unavailable Scozzari, K Vita PA Unavailable Unavailable Scozzari, K Vita PA Unavailable Unavailable Scozzari, K Vita PA Unavailable Unavailable Scozzari, K Vita PA Unavailable Unavailable Scozzari, K Vita PA Unavailable Unavailable Scozzari, K Vita PA Unavailable Unavailable Scozzari, K Vita PA Unavailable Unavailable Scozzari, K Vita PA Unavailable Unavailable Scozzari, K Vita PA Unavailable Unavailable Scozzari, K Vita PA Unavailable Unavailable Scozzari, K Vita PA Unavailable Unavailable Scozzari, K Vita PA Unavailable Unavailable Scozzari, K Vita PA Unavailable Unavailable Scozzari, K Vita PA Unavailable Unavailable Scozzari, K Vita PA Unavailable Unavailable Scozzari, K Vita PA Unavailable Unavailable Scozzari, K Vita PA Unavailable Unavailable Kev WINN MD Unavailable Unavailable Kev WINN MD Unavailable Unavailable Kev WINN MD Unavailable Unavailable Kev WINN MD Unavailable Unavailable Kev WINN MD Unavailable Unavailable Kev WINN MD Unavailable Unavailable Kev WINN MD Unavailable Unavailable Kev WINN MD Unavailable Unavailable Kev WINN MD Unavailable Unavailable Kev WINN MD Unavailable Unavailable Kev WINN MD Unavailable Unavailable WINN, Kev WEST MD Unavailable Unavailable WINN, Kev WEST MD Unavailable Unavailable WINN, Kev WEST MD Unavailable Unavailable WINN, Kev WEST MD Unavailable Unavailable WINN, Kev WEST MD Unavailable Unavailable WINN, Kev WEST MD Unavailable Unavailable WINN, Kev WEST MD Unavailable Unavailable WINN, Kev WEST MD Unavailable Unavailable WINN, Kev WEST MD Unavailable Unavailable WINN, Kev WEST MD Unavailable Unavailable WINN, Kev WEST MD Unavailable Unavailable WINN, Kev WEST MD Unavailable Unavailable WINN, Kev WEST MD Unavailable Unavailable WINN, Kev WEST MD Unavailable Unavailable WINN, Kev WEST MD Unavailable Unavailable WINN, Kev WEST MD Unavailable Unavailable WINN, Kev WEST MD Unavailable Unavailable WINN, Kev WEST MD Unavailable Unavailable WINN, Kev WEST MD Unavailable Unavailable WINN, Kev WEST MD Unavailable Unavailable WINN, Kev WEST MD Unavailable Unavailable WINN, Kev WEST MD Unavailable Unavailable WINN, Kev WEST MD Unavailable Unavailable WINN, Kev WEST MD Unavailable Unavailable WINN, Kev WEST MD Unavailable Unavailable WINN, Kev WEST MD Unavailable Unavailable WINN, Kev WEST MD Unavailable Unavailable WINN, Kev WEST MD Unavailable Unavailable WINN, Kev WEST MD Unavailable Unavailable WINN, Kev WEST MD Unavailable Unavailable WINN, Kev WEST MD Unavailable Unavailable WINN, Kev WEST MD Unavailable Unavailable WINN, Kev WEST MD Unavailable Unavailable WINN, Kev WEST MD Unavailable Unavailable WINN, Kev WEST MD Unavailable Unavailable WINN, Kev WEST MD Unavailable Unavailable WINN, Kev WEST MD Unavailable Unavailable WINN, Kev WEST MD Unavailable Unavailable WINN, Kev WEST MD Unavailable Unavailable WINN, Kev WEST MD Unavailable Unavailable WINN, Kev WEST MD Unavailable Unavailable WINN, Kev WEST MD Unavailable Unavailable WINN, Kev WEST MD Unavailable Unavailable WINN, Kev WEST MD Unavailable Unavailable WINN, Kev WEST MD Unavailable Unavailable WINN, Kev WEST MD Unavailable Unavailable WINN, Kev WEST MD Unavailable Unavailable WINN, Kev WEST MD Unavailable Unavailable WINN, Kev WEST MD Unavailable Unavailable WINN, Kev WEST MD Unavailable Unavailable WINN, Kev WEST MD Unavailable Unavailable WINN, Kev WEST MD Unavailable Unavailable WINN, Kev WEST MD Unavailable Unavailable WINN, Kev WEST MD Unavailable Unavailable WINN, Kev WEST MD Unavailable Unavailable WINN, Kev WEST MD Unavailable Unavailable WINN, Kev WEST MD Unavailable Unavailable WINN, Kev WEST MD Unavailable Unavailable WINN, Kev WEST MD Unavailable Unavailable WINN, Kev WEST MD Unavailable Unavailable WINN, Kev WEST MD Unavailable Unavailable WINN, Kev WEST MD Unavailable Unavailable WINN, Kev WEST MD Unavailable Unavailable WINN, Kev WEST MD Unavailable Unavailable WINN, Kev WEST MD Unavailable Unavailable WINN, Kev WEST MD Unavailable Unavailable WINN, Kev WEST MD Unavailable Unavailable WINN, Kev WEST MD Unavailable Unavailable WINN, Kev WEST MD Unavailable Unavailable WINN, Kev WEST MD Unavailable Unavailable WINN, Kev WEST MD Unavailable Unavailable WINN, Kev WEST MD Unavailable Unavailable WINN, Kev WEST MD Unavailable Unavailable WINN, Kev WEST MD Unavailable Unavailable WINN, Kev WEST MD Unavailable Unavailable WINN, Kev WEST MD Unavailable Unavailable WINN, Kev WEST MD Unavailable Unavailable WINN, Kev WEST MD Unavailable Unavailable WINN, Kev WEST MD Unavailable Unavailable WINN, Kev WEST MD Unavailable Unavailable WINN, Kev WEST MD Unavailable Unavailable WINN, Kev WEST MD Unavailable Unavailable WINN, Kev WEST MD Unavailable Unavailable WINN, Kev WEST MD Unavailable Unavailable WINN, Kev WEST MD Unavailable Unavailable WINN, Kev WEST MD Unavailable Unavailable WINN, Kev WEST MD Unavailable Unavailable WINN, Kev WEST MD Unavailable Unavailable WINN, Kev WEST MD Unavailable Unavailable WINN, Kev WEST MD Unavailable Unavailable WINN, Kev WEST MD Unavailable Unavailable WINN, Kev WEST MD Unavailable Unavailable WINN, Kev WEST MD Unavailable Unavailable WINN, Kev WEST MD Unavailable Unavailable WINN, Kev WEST MD Unavailable Unavailable WINN, Kev WEST MD Unavailable Unavailable WINN, Kev WEST MD Unavailable Unavailable WINN, Kev WEST MD Unavailable Unavailable WINN, Kev WEST MD Unavailable Unavailable WINN, Kev WEST MD Unavailable Unavailable WINN, Kev WEST MD Unavailable Unavailable WINN, Kev WEST MD Unavailable Unavailable WINN, Kev WEST MD Unavailable Unavailable WINN, Kev WEST MD Unavailable Unavailable WINN, Kev WEST MD Unavailable Unavailable WINN, Kev WEST MD Unavailable Unavailable WINN, Kev WEST MD Unavailable Unavailable WINN, Kev WEST MD Unavailable Unavailable WINN, Kev WEST MD Unavailable Unavailable WINN, Kev WEST MD Unavailable Unavailable WINN, Kev WEST MD Unavailable Unavailable WINN, Kev WEST MD Unavailable Unavailable WINN, Kev WEST MD Unavailable Unavailable WINN, Kev WEST MD Unavailable Unavailable WINN, Kev WEST MD Unavailable Unavailable WINN, Kev WEST MD Unavailable Unavailable WINN, Kev WEST MD Unavailable Unavailable WINN, Kev WEST MD Unavailable Unavailable WINN, Kev WEST MD Unavailable Unavailable WINN, Kev WEST MD Unavailable Unavailable WINN, Kev WEST MD Unavailable Unavailable WINN, Kev WEST MD Unavailable Unavailable WINN, Kev WEST MD Unavailable Unavailable WINN, Kev WEST MD Unavailable Unavailable WINN, Kev WEST MD Unavailable Unavailable WINN, Kev WEST MD Unavailable Unavailable WINN, Kev WEST MD Unavailable Unavailable WINN, Kev WEST MD Unavailable Unavailable WINN, Kev WEST MD Unavailable Unavailable WINN, Kev WEST MD Unavailable Unavailable WINN, Kev WEST MD Unavailable Unavailable WINN, Kev WEST MD Unavailable Unavailable WINN, Kev WEST MD Unavailable Unavailable WINN, Kev WEST MD Unavailable Unavailable WINN, Kev WEST MD Unavailable Unavailable WINN, Kev WEST MD Unavailable Unavailable WINN, Kev WEST MD Unavailable Unavailable WINN, Kev WEST MD Unavailable Unavailable WINN, Kev WEST MD Unavailable Unavailable WINN, Kev WEST MD Unavailable Unavailable WINN, Kev WEST MD Unavailable Unavailable WINN, Kev WEST MD Unavailable Unavailable WINN, Kev WEST MD Unavailable Unavailable WINN, Kev WEST MD Unavailable Unavailable WINN, Kev WEST MD Unavailable Unavailable WINN, Kev WEST MD Unavailable Unavailable WINN, Kev WEST MD Unavailable Unavailable WINN, Kev WEST MD Unavailable Unavailable WINN, Kev WEST MD Unavailable Unavailable WINN, Kev WEST MD Unavailable Unavailable WINN, Kev WEST MD Unavailable Unavailable WINN, Kev WEST MD Unavailable Unavailable WINN, Kev WEST MD Unavailable Unavailable WINN, Kev WEST MD Unavailable Unavailable WINN, Kev WEST MD Unavailable Unavailable WINN, Kev WEST MD Unavailable Unavailable WINN, Kev WEST MD Unavailable Unavailable WINN, Kev WEST MD Unavailable Unavailable WINN, Kev WEST MD Unavailable Unavailable WINN, Kev WEST MD Unavailable Unavailable WINN, Kev WEST MD Unavailable Unavailable WINN, Kev WEST MD Unavailable Unavailable WINN, Kev WEST MD Unavailable Unavailable WINN, Kev WEST MD Unavailable Unavailable WINN, Kev WEST MD Unavailable Unavailable WINN, Kev WEST MD Unavailable Unavailable WINN, Kev WEST MD Unavailable Unavailable WINN, Kev WEST MD Unavailable Unavailable WINN, Kev WEST MD Unavailable Unavailable WINN, Kev WEST MD Unavailable Unavailable WINN, Kev WEST MD Unavailable Unavailable WINN, Kev WEST MD Unavailable Unavailable WINN, Kev WEST MD Unavailable Unavailable WINN, Kev WEST MD Unavailable Unavailable WINN, Kev WEST MD Unavailable Unavailable WINN, Kev WEST MD Unavailable Unavailable WINN, Kev WEST MD Unavailable Unavailable WINN, Kev WEST MD Unavailable Unavailable WINN, Kev WEST MD Unavailable Unavailable WINN, Kev WEST MD Unavailable Unavailable WINN, Kev WEST MD Unavailable Unavailable WINN, Kev WEST MD Unavailable Unavailable WINN, Kev WEST MD Unavailable Unavailable WINN, Kev WEST MD Unavailable Unavailable WINN, Kev WEST MD Unavailable Unavailable WINN, Kev WEST MD Unavailable Unavailable WINN, Kev WEST MD Unavailable Unavailable WINN, Kev WEST MD Unavailable Unavailable WINN, Kev WEST MD Unavailable Unavailable WINN, Kev WEST MD Unavailable Unavailable WINN, Kev WEST MD Unavailable Unavailable WINN, Kev WEST MD Unavailable Unavailable WINN, Kev WEST MD Unavailable Unavailable WNIN, Kev WEST MD Unavailable Unavailable WINN, Kev WEST MD Unavailable Unavailable WINN, Kev WEST MD Unavailable Unavailable WINN, Kev WEST MD Unavailable Unavailable WINN, Kev WEST MD Unavailable Unavailable WINN, Kev WEST MD Unavailable Unavailable WINN, Kev WEST MD Unavailable Unavailable WINN, Kev WEST MD Unavailable Unavailable WINN, Kev WEST MD Unavailable Unavailable WINN, Kev WEST MD Unavailable Unavailable WINN, Kev WEST MD Unavailable Unavailable WINN, Kev WEST MD Unavailable Unavailable WINN, Kev WEST MD Unavailable Unavailable WINN, Kev WEST MD Unavailable Unavailable WINN, Kev WEST MD Unavailable Unavailable WINN, Kev WEST MD Unavailable Unavailable WINN, Kev WEST MD Unavailable Unavailable WINN, Kev WEST MD Unavailable Unavailable WINN, Kev WEST MD Unavailable Unavailable WINN, Kev WEST MD Unavailable Unavailable WINN, Kev WEST MD Unavailable Unavailable WINN, Kev WEST MD Unavailable Unavailable WNIN, Kev WEST MD Unavailable Unavailable WINN, Kev WEST MD Unavailable Unavailable WINN, Kev WEST MD Unavailable Unavailable WINN, Kev WEST MD Unavailable Unavailable KEIKO, 0000{ Unavailable Unavailable WINN, Kev WEST MD Unavailable Unavailable WINN, Kev WEST MD Unavailable Unavailable WINN, Kev WEST MD Unavailable Unavailable WINN, Kev WEST MD Unavailable Unavailable WINN, Kev WEST MD Unavailable Unavailable IWNN, Kev WEST MD Unavailable Unavailable WINN, Kev WEST MD Unavailable Unavailable WINN, Kev WEST MD Unavailable Unavailable WINN, Kev WEST MD Unavailable Unavailable WINN, Kev WEST MD Unavailable Unavailable WINN, Kev WEST MD Unavailable Unavailable WINN, Kev WEST MD Unavailable Unavailable WINN, Kev WEST MD Unavailable Unavailable WINN, Kev WEST MD Unavailable Unavailable WINN, Kev WEST MD Unavailable Unavailable WINN, Kev WEST MD Unavailable Unavailable WINN, Kev WEST MD Unavailable Unavailable WINN, Kev WEST MD Unavailable Unavailable WINN, Kev WEST MD Unavailable Unavailable WINN, Kev WEST MD Unavailable Unavailable WINN, Kev WEST MD Unavailable Unavailable WINN, Kev WEST MD Unavailable Unavailable WINN, Kev WEST MD Unavailable Unavailable WINN, Kev WEST MD Unavailable Unavailable WINN, Kev WEST MD Unavailable Unavailable WINN, Kev WEST MD Unavailable Unavailable WINN, Kev WEST MD Unavailable Unavailable WINN, Kev WEST MD Unavailable Unavailable WINN, Kev WEST MD Unavailable Unavailable WINN, Kev WEST MD Unavailable Unavailable WINN, Kev WEST MD Unavailable Unavailable WINN, Kev WEST MD Unavailable Unavailable WINN, Kev WEST MD Unavailable Unavailable WINN, Kev WEST MD Unavailable Unavailable WINN, Kev WEST MD Unavailable Unavailable WINN, Kev WEST MD Unavailable Unavailable WINN, Kev WEST MD Unavailable Unavailable WINN, Kev WEST MD Unavailable Unavailable WINN, Kev WEST MD Unavailable Unavailable WINN, Kev WEST MD Unavailable Unavailable WINN, Kev WEST MD Unavailable Unavailable WINN, Kev WEST MD Unavailable Unavailable WINN, Kev WEST MD Unavailable Unavailable WINN, Kev WEST MD Unavailable Unavailable WINN, Kev WEST MD Unavailable Unavailable WINN, Kev WEST MD Unavailable Unavailable WINN, Kev WEST MD Unavailable Unavailable WINN, Kev WEST MD Unavailable Unavailable WINN, Kev WEST MD Unavailable Unavailable WINN, Kev WEST MD Unavailable Unavailable WINN, Kev WEST MD Unavailable Unavailable WINN, Kev WEST MD Unavailable Unavailable WINN, Kev WEST MD Unavailable Unavailable WINN, Kev WEST MD Unavailable Unavailable WINN, Kev WEST MD Unavailable Unavailable WINN, Kev WEST MD Unavailable Unavailable WINN, Kev WEST MD Unavailable Unavailable WINN, Kev WEST MD Unavailable Unavailable WINN, Kev WEST MD Unavailable Unavailable WINN, Kev WEST MD Unavailable Unavailable WINN, Kev WEST MD Unavailable Unavailable WINN, Kev WEST MD Unavailable Unavailable WINN, Kev WEST MD Unavailable Unavailable WINN, Kev WEST MD Unavailable Unavailable WINN, Kev WEST MD Unavailable Unavailable WINN, Kev WEST MD Unavailable Unavailable WINN, Kev WEST MD Unavailable Unavailable WINN, Kev WEST MD Unavailable Unavailable WINN, Kev WEST MD Unavailable Unavailable WINN, Kev WEST MD Unavailable Unavailable WINN, Kev WEST MD Unavailable Unavailable WINN, Kev WEST MD Unavailable Unavailable WINN, Kev WEST MD Unavailable Unavailable WINN, Kev WEST MD Unavailable Unavailable WINN, Kev WEST MD Unavailable Unavailable WINN, Kev WEST MD Unavailable Unavailable WINN, Kev WEST MD Unavailable Unavailable WINN, Kev WEST MD Unavailable Unavailable WINN, Kev WEST MD Unavailable Unavailable WINN, Kev WEST MD Unavailable Unavailable WINN, Kev WEST MD Unavailable Unavailable WINN, Kev WEST MD Unavailable Unavailable WINN, Kev WEST MD Unavailable Unavailable WINN, Kev WEST MD Unavailable Unavailable WINN, Kev WEST MD Unavailable Unavailable WINN, Kev WEST MD Unavailable Unavailable WINN, Kev WEST MD Unavailable Unavailable WINN, Kev WEST MD Unavailable Unavailable WINN, Kev WEST MD Unavailable Unavailable WINN, Kev WEST MD Unavailable Unavailable WINN, Kev WEST MD Unavailable Unavailable WINN, Kev WEST MD Unavailable Unavailable WINN, Kev WEST MD Unavailable Unavailable WINN, T BRETT MD Unavailable Unavailable Kev WINN MD Unavailable Unavailable Kev WINN MD Unavailable Unavailable Kev WINN MD Unavailable Unavailable Kev WINN MD Unavailable Unavailable Kev WINN MD Unavailable Unavailable Kev WINN MD Unavailable Unavailable Kev WINN MD Unavailable Unavailable Kev WINN MD Unavailable Unavailable Kev WINN MD Unavailable Unavailable Kev WINN MD Unavailable Unavailable Kev WINN MD Unavailable Unavailable Kev WINN MD Unavailable Unavailable Kev WINN MD Unavailable Unavailable Kev WINN MD Unavailable Unavailable Kev WINN MD Unavailable Unavailable Kev WINN MD Unavailable Unavailable Kev WINN MD Unavailable Unavailable Kev WINN MD Unavailable Unavailable Kev WINN MD Unavailable Unavailable Kev WINN MD Unavailable Unavailable Kev WINN MD Unavailable Unavailable Alberry, D She SQUASH CENTRE MANAGER Unavailable Unavailable Alberry, D She SQUASH CENTRE MANAGER Unavailable Unavailable Alberry, D She SQUASH CENTRE MANAGER Unavailable Unavailable Alberry, D She SQUASH CENTRE MANAGER Unavailable Unavailable Alberry, D She SQUASH CENTRE MANAGER Unavailable Unavailable Alberry, D She SQUASH CENTRE MANAGER Unavailable Unavailable Alberry, D She SQUASH CENTRE MANAGER Unavailable Unavailable Alberry, D She SQUASH CENTRE MANAGER Unavailable Unavailable Alberry, D She SQUASH CENTRE MANAGER Unavailable Unavailable Alberry, D She SQUASH CENTRE MANAGER Unavailable Unavailable Alberry, D She SQUASH CENTRE MANAGER Unavailable Unavailable Alberry, D She SQUASH CENTRE MANAGER Unavailable Unavailable Alberry, D She SQUASH CENTRE MANAGER Unavailable Unavailable Alberry, D She SQUASH CENTRE MANAGER Unavailable Unavailable Alberry, D She SQUASH CENTRE MANAGER Unavailable Unavailable Alberry, D She SQUASH CENTRE MANAGER Unavailable Unavailable Alberry, D She SQUASH CENTRE MANAGER Unavailable Unavailable Alberry, D She SQUASH CENTRE MANAGER Unavailable Unavailable Alberry, D She SQUASH CENTRE MANAGER Unavailable Unavailable Alberry, D She SQUASH CENTRE MANAGER Unavailable Unavailable Alberry, D She SQUASH CENTRE MANAGER Unavailable Unavailable Alberry, D She SQUASH CENTRE MANAGER Unavailable Unavailable Alberry, D She SQUASH CENTRE MANAGER Unavailable Unavailable Alberry, D She SQUASH CENTRE MANAGER Unavailable Unavailable Alberry, D She SQUASH CENTRE MANAGER Unavailable Unavailable Alberry, D She SQUASH CENTRE MANAGER Unavailable Unavailable Alberry, D She SQUASH CENTRE MANAGER Unavailable Unavailable Alberry, D She SQUASH CENTRE MANAGER Unavailable Unavailable Alberry, D She SQUASH CENTRE MANAGER Unavailable Unavailable Alberry, D She SQUASH CENTRE MANAGER Unavailable Unavailable Alberry, D She SQUASH CENTRE MANAGER Unavailable Unavailable Alberry, D She SQUASH CENTRE MANAGER Unavailable Unavailable Alberry, D She SQUASH CENTRE MANAGER Unavailable Unavailable Alberry, D She SQUASH CENTRE MANAGER Unavailable Unavailable Alberry, D She SQUASH CENTRE MANAGER Unavailable Unavailable Alberry, D She SQUASH CENTRE MANAGER Unavailable Unavailable Alberry, D She SQUASH CENTRE MANAGER Unavailable Unavailable Alberry, D She SQUASH CENTRE MANAGER Unavailable Unavailable Alberry, D She SQUASH CENTRE MANAGER Unavailable Unavailable Alberry, D She SQUASH CENTRE MANAGER Unavailable Unavailable Alberry, D She SQUASH CENTRE MANAGER Unavailable Unavailable Alberry, D She SQUASH CENTRE MANAGER Unavailable Unavailable Alberry, D She SQUASH CENTRE MANAGER Unavailable Unavailable Alberry, D She SQUASH CENTRE MANAGER Unavailable Unavailable Alberry, D She SQUASH CENTRE MANAGER Unavailable Unavailable Alberry, D She SQUASH CENTRE MANAGER Unavailable Unavailable Alberry, D She SQUASH CENTRE MANAGER Unavailable Unavailable Alberry, D She SQUASH CENTRE MANAGER Unavailable Unavailable Re-disclosure Warning The records that you are about to access may contain information from federally-assisted alcohol or drug abuse programs. If such information is present, then the following federally mandated warning applies: This information has been disclosed to you from records protected by federal confidentiality rules (42 CFR part 2). The federal rules prohibit you from making any further disclosure of this information unless further disclosure is expressly permitted by the written consent of the person to whom it pertains or as otherwise permitted by 42 CFR part 2. A general authorization for the release of medical or other information is NOT sufficient for this purpose. The Federal rules restrict any use of the information to criminally investigate or prosecute any alcohol or drug abuse patient.The records that you are about to access may contain highly sensitive health information, the redisclosure of which is protected by Article 27-F of the [facility] Public Health law. If you continue you may have access to information: Regarding HIV / AIDS; Provided by facilities licensed or operated by the [facility] Office of Mental Health; or Provided by the [facility] Office for People With Developmental Disabilities. If such information is present, then the following [facility] mandated warning applies: This information has been disclosed to you from confidential records which are protected by state law. State law prohibits you from making any further disclosure of this information without the specific written consent of the person to whom it pertains, or as otherwise permitted by law. Any unauthorized further disclosure in violation of state law may result in a fine or usp sentence or both. A general authorization for the release of medical or other information is NOT sufficient authorization for further disc losure. Allergies and Adverse Reactions Type Description Substance Reaction Status Data Source(s ) Drug allergy Augmentin amoxicillin / clavulanate Loose stools 1 Active eCW1 (On License Of [facility]) Penicillin Penicillin Penicillin Loose stools Active eCW1 ([facility]) Avelox Avelox 250 ML moxifloxacin 1.6 MG/ML Injection [ Avelox] Yeast infection Active eCW1 (On License Of [facility]) Avelox Avelox 250 ML moxifloxacin 1.6 MG/ML Injection [ Avelox] Yeast infection Active eCW1 (On License Of [facility]) Penicillin Penicillin Penicillin Loose stools Active eCW1 ([facility]) Family History Family Member Name Family Member Gender Family Member Status Date o f Status Description Data Source(s) Unknown Female Problem MEDENT ([facility]) Unknown Female Problem MEDENT ([facility]) Unknown Female Problem MEDENT ([facility]) Encounters Encounter Providers Location Date Indications Data Source(s ) Unknown [address] [facility] [address] 05/21/2020 12:00:00 AM EST eCW1 ([facility]) Recurring Patient Attender: BRETT WINN MDReferrer: She MARTIN 05/16/2020 09:53:00 AM EST [facility] [address] [facility] [address] 05/07/2020 12:00:00 AM EST eCW1 ([facility]) Unknown [address] [facility] [place] [address] 05/07/2020 12:00:00 AM EST eCW1 ([facility]) Unknown [address] [facility] [place] [address] 05/01/2020 12:00:00 AM EST eCW1 ([facility]) Unknown [address] [facility] [place] [address] 03/29/2020 12:00:00 AM EST eCW1 ([facility]) Unknown [address] [facility] [address] 03/22/2020 12:00:00 AM EST eCW1 ([facility]) Unknown [address] [facility] [address] 02/06/2020 12:00:00 AM EDT eCW1 ([facility]) Unknown [address] [facility] [address] 01/27/2020 12:00:00 AM EDT eCW1 ([facility]) Outpatient Attender: Vita Robles: She marrero SQUASH CENTRE MANAGER 2020 04:58:02 PM EDT [facility] Recurring Patient Attender: BRETT Siddiquierrer: She Jaquez SQUASH CENTRE MANAGER 01/05/2020 02:08:46 PM EDT [facility] Recurring Patient Attender: BRETT Siddiquierrer: She Jaquez SQUASH CENTRE MANAGER 01/05/2020 02:05:28 PM EDT [facility] [address] [facility] [address] 09/19/2019 12:00:00 AM EDT eCW1 ([facility]) Recurring Patient Attender: BRETT Siddiquierrer: She Jaquez SQUASH CENTRE MANAGER 09/12/2019 10:19:41 AM EDT [facility] Recurring Patient Attender: BRETT Siddiquierrer: She Jaquez SQUASH CENTRE MANAGER 09/12/2019 10:18:10 AM EDT [facility] Recurring Patient Attender: BRETT WRIGHTeferrer: She Jaquez SQUASH CENTRE MANAGER 09/12/2019 10:18:04 AM EDT [facility] Recurring Patient Attender: BRETT WRIGHTeferrer: She Jaquez SQUASH CENTRE MANAGER 09/08/2019 06:19:40 AM EDT [facility] Recurring Patient Attender: BRETT Siddiquierrer: She Jaquez SQUASH CENTRE MANAGER 09/08/2019 06:19:22 AM EDT [facility] Recurring Patient Attender: BRETT WRIGHTeferrer: She Jaquez SQUASH CENTRE MANAGER 09/08/2019 06:16:36 AM EDT [facility] Outpatient Attender: BRETT WINN MDReferrer: She Winston SQUASH CENTRE MANAGER 08/25/2019 10:07:50 AM EDT [facility] Outpatient Attender: BRETT WINN MDReferrer: She Winston SQUASH CENTRE MANAGER 07/25/2019 09:02:45 AM EDT [facility] [address], [place] [address] 07/22/2019 12:00:00 AM EDT eCW1 ([facility]) [address] [address] 07/08/2019 12:00:00 AM EDT eCW1 ([facility]) [address] [address] 06/28/2019 12:00:00 AM EDT eCW1 ([facility]) Outpatient Attender: Vita Robles: She marrero SQUASH CENTRE MANAGER 06/23/2019 12:35:49 PM EDT [facility] Inpatient Attender: BRETT WINN MD 06/08/2019 09:09:27 AM EST [facility] [place] [facility] ( in Healthcare facility) Attender: HIRAM WINN MDAdmitter: BRETT WINN MDConsultant: She Jaquez SQUASH CENTRE MANAGER 05/15 08:52:00 AM EST - 06/10/2019 03:31:00 PM EST [facility] Inpatient Attender: BRETT WINN MDAdmitter: BRETT HAYES MD 06/08/2019 08:52:00 AM EST - 06/10/2019 03:31:00 PM EST HISTORY OF LEFT TOTAL HIP REPLACEMENT; 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 Inpatient Attender: Suad KEIKO 06/08/2019 08:52:[address] [address] 06/01/2019 12:00:00 AM EST eCW1 ([facility]) [address] [address] 05/30/2019 12:00:00 AM EST eCW1 ([facility]) [address] [place] [address] 05/26/2019 12:00:00 AM EST eCW1 ([facility]) Outpatient Referrer: Chano Rendon MD 05/23/2019 04:02:00 PM EST [facility] Outpatient Attender: Vita RAEeferrer: She marrero SQUASH CENTRE MANAGER 05/23/2019 08:27:05 AM EST [facility] [address], [facility] [address] 05/17/2019 12:00:00 AM EST eCW1 ([facility]) Outpatient Attender: BRETT WINN MD 05/16/2019 03:19:14 PM EST [facility] [place] [facility] Outpatient Attender: BRETT WINN MD 05/16/2019 12:47:00 PM EST PRETESTING [facility] [place]TESTING [address] [address] 05/16/2019 12:00:00 AM EST eCW1 ([facility]) [address] [address] 05/12/2019 12:00:00 AM EST eCW1 ([facility]) [address] [address] 05/05/2019 12:00:00 AM EST eCW1 ([facility]) Outpatient Attender: Rony Barton MDReferrer: She romeo SQUASH CENTRE MANAGER 04/27/2019 10:18:44 AM EST [facility] Recurring Patient Attender: BRETT WINN MDReferrer: She Jaquez SQUASH CENTRE MANAGER 04/27/2019 09:53:31 AM EST [facility] [address] [address] 04/26/2019 12:00:00 AM EST eCW1 ([facility]) Outpatient Attender: BRETT TATUM MDReferrer: She Winston SQUASH CENTRE MANAGER 04/15/2019 07:39:38 AM EST [facility] Recurring Patient Attender: BRETT RODASE MDReferrer: She Jaquez SQUASH CENTRE MANAGER 04/12/2019 11:15:55 AM EST [facility] Outpatient Attender: Vita Giraldo Regierrer: Ania polo WIRE MACHINE OPERATOR 03/28/2019 08:34:14 AM EST [facility] [address], [facility] [address] 03/28/2019 12:00:00 AM EST eCW1 ([facility]) Immunizations Vaccine Date Status Description Data Source(s) influenza, recombinant, quadrIvalent,injectable, prese rvative free 05/07/2020 05:02:00 PM EST completed eCW1 ([facility]) influenza, recombinant, quadrIvalent,injectable, prese rvative free 05/07/2020 05:02:00 PM EST completed eCW1 ([facility]) influenza, recombinant, quadrIvalent,injectable, prese rvative free 05/07/2020 05:02:00 PM EST completed eCW1 ([facility]) Medications Medication Brand Name Start Date Product Form Dose Route Admi nistrative Instructions Pharmacy Instructions Status Indications Reaction Description Data Source(s) 112 mcg 05/21/2020 12:00:00 AM EST tablet 30 TAKE ONE TABLET BY MOUTH EVERY DAY IN THE MORNING ON AN EMPTY STOMACH TAKE ONE TABLET BY MOUTH EVERY DAY IN MORNING ON AN EMPTY STOMACH SOLD: 05/22/2020 [facility] pantoprazole 40 MG Delayed Release Oral Tablet PANTOPRAZOLE SODIUM 05/21/2020 12:00:00 AM EST tablet,delayed release (DR/EC) 60 T HAYDEN ONE TABLET BY MOUTH TWICE A DAY TAKE ONE TABLET BY MOUTH TWICE A DAY SOLD: 05/22/2020 [facility] 17.5-3.13-1.6 gram 05/17/2020 12:00:00 AM EST recon soln 354 TAKE PER DOCTOR'S BOWEL PREP INSTRUCTIONS TAKE PER DOCTOR'S BOWEL PREP INSTRUCTIONS SOLD: 05/19/2020 [facility] Fluticasone Propionate 50 MCG/ACT Fluticasone Propionate 50 MCG/ACT 05/07/2020 12:00:00 AM EST 1.0 {spray_in_each_nostril} acti ve Fluticasone Propionate 50 MCG/ACT eCW1 (On License Of [facility]) Fluticasone Propionate 50 MCG/ACT Fluticasone Propionate 50 MCG/ACT 05/07/2020 12:00:00 AM EST 1.0 {spray_in_each_nostril} acti ve Fluticasone Propionate 50 MCG/ACT eCW1 (On License Of [facility]) 50 mcg/actuation 05/07/2020 12:00:00 AM EST spray,suspension 16 SPRAY ONE SPRAY IN EACH NOSTRIL TWICE A DAY SPRAY ONE SPRAY IN EACH NOSTRIL TWICE A DAY SOLD: 05/11/2020 [facility] Azelastine HCl 0.1 % Azelastine HCl 0.1 % 05/07/2020 12:00:00 AM ES T 1.0 {puff_in_each_nostril} active Azelastin e HCl 0.1 % eCW1 (On License Of [facility]) 20 mg 05/07/2020 12:00:00 AM EST tablet 90 TAKE ONE TABLET BY MOUTH EVERY 8 HOURS WITH FOOD OR MILK TAKE ONE TABLET BY MOUTH EVERY 8 HOURS W ITH FOOD OR MILK SOLD: 05/11/2020 [facility] 137 mcg (0.1 %) 05/07/2020 12:00:00 AM EST aerosol,spray 30 SPRAY ONE SPRAY IN EACH NOSTRIL TWICE A DAY SPRAY ONE SPRAY IN EACH NOSTRIL TWICE A DAY SOLD: 05/11/2020 [facility] 100,000 unit/gram 05/07/2020 12:00:00 AM EST powder 60 APPLY TWO TIMES A DAY APPLY TWO TIMES A DAY SOLD: 05/11/2020 [facility] Fluticasone Propionate 50 MCG/ACT Fluticasone Propionate 50 MCG/ACT 05/07/2020 12:00:00 AM EST 1.0 {spray_in_each_nostril} acti ve Fluticasone Propionate 50 MCG/ACT eCW1 (On License Of [facility]) Azelastine HCl 0.1 % Azelastine HCl 0.1 % 05/07/2020 12:00:00 AM ES T 1.0 {puff_in_each_nostril} active Azelastin e HCl 0.1 % eCW1 (On License Of [facility]) Azelastine HCl 0.1 % Azelastine HCl 0.1 % 05/07/2020 12:00:00 AM ES T 1.0 {puff_in_each_nostril} active Azelastin e HCl 0.1 % eCW1 (On License Of [facility]) 145 mg 04/17/2020 12:00:00 AM EST tablet 90 TAKE ONE TABLET BY MOUTH EVERY DAY WITH FOOD TAKE ONE TABLET BY MOUTH EVERY DAY WITH FOOD SOLD: 04/20/2020 [facility] pantoprazole 40 MG Delayed Release Oral Tablet PANTOPRAZOLE SODIUM 03/30/2020 12:00:00 AM EST tablet,delayed release (DR/EC) 30 T HAYDEN ONE TABLET BY MOUTH EVERY DAY TAKE ONE TABLET BY MOUTH EVERY DAY SOLD: 04/01/2020 [facility] pantoprazole 40 MG Delayed Release Oral Tablet PANTOPRAZOLE SODIUM 03/30/2020 12:00:00 AM EST tablet,delayed release (DR/EC) 30 T HAYDEN ONE TABLET BY MOUTH EVERY DAY TAKE ONE TABLET BY MOUTH EVERY DAY SOLD: 05/01/2020 [facility] 150 mg 03/24/2020 12:00:00 AM EST capsule 60 TAKE ONE CAPSULE BY MOUTH TWICE A DAY MAX=2CAPS/DAY TAKE ONE CAPSULE BY MOUTH TWICE A DAY MAX=2CAPS/DAY SO LD: 03/29/2020 [facility] 150 mg 03/24/2020 12:00:00 AM EST capsule 60 TAKE ONE CAPSULE BY MOUTH TWICE A DAY MAX=2CAPS/DAY TAKE ONE CAPSULE BY MOUTH TWICE A DAY MAX=2CAPS/DAY SO LD: 05/01/2020 [facility] 40 mg 03/22/2020 12:00:00 AM EST tablet 90 TAKE ONE TABLET BY MOUTH EVERY DAY TAKE ONE TABLET BY MOUTH EVERY DAY SOLD: 03/29/2020 [facility] 100-25 mcg/dose 03/12/2020 12:00:00 AM EST blister with mitra ce 60 INHALE ONE PUFF BY MOUTH EVERY DAY INHALE ONE PUFF BY MOUTH EVERY DAY SOLD: 05/22/2020 [facility] 100-25 mcg/dose 03/12/2020 12:00:00 AM EST blister with mitra ce 60 INHALE ONE PUFF BY MOUTH EVERY DAY INHALE ONE PUFF BY MOUTH EVERY DAY SOLD: 03/18/2020 [facility] 100-25 mcg/dose 03/12/2020 12:00:00 AM EST blister with mitra ce 60 INHALE ONE PUFF BY MOUTH EVERY DAY INHALE ONE PUFF BY MOUTH EVERY DAY SOLD: 04/20/2020 [facility] 50 mg 02/07/2020 12:00:00 AM EDT tablet 60 TAKE TWO TABLETS BY MOUTH AT BEDTIME NEEDED FOR SLEEP TAKE TWO TABLETS BY MOUTH AT BEDTIME NEEDED FOR SLEEP SOLD: 02/09/2020 [facility] 20 mg 02/07/2020 12:00:00 AM EDT tablet 90 TAKE ONE TABLET BY MOUTH EVERY 8 HOURS WITH FOOD OR MILK TAKE ONE TABLET BY MOUTH EVERY 8 HOURS W ITH FOOD OR MILK SOLD: 02/09/2020 [facility] 20 mg 02/07/2020 12:00:00 AM EDT tablet 90 TAKE ONE TABLET BY MOUTH EVERY 8 HOURS WITH FOOD OR MILK TAKE ONE TABLET BY MOUTH EVERY 8 HOURS W ITH FOOD OR MILK SOLD: 04/02/2020 [facility] pantoprazole 40 MG Delayed Release Oral Tablet PANTOPRAZOLE SODIUM 01/27/2020 12:00:00 AM EDT tablet,delayed release (DR/EC) 30 T HAYDEN ONE TABLET BY MOUTH EVERY DAY TAKE ONE TABLET BY MOUTH EVERY DAY SOLD: 02/29/2020 [facility] pantoprazole 40 MG Delayed Release Oral Tablet PANTOPRAZOLE SODIUM 01/27/2020 12:00:00 AM EDT tablet,delayed release (DR/EC) 30 T HAYDEN ONE TABLET BY MOUTH EVERY DAY TAKE ONE TABLET BY MOUTH EVERY DAY SOLD: 01/29/2020 [facility] 112 mcg 01/25/2020 12:00:00 AM EDT tablet 30 TAKE ONE TABLET BY MOUTH EVERY MORNING ON AN EMPTY STOMACH TAKE ONE TABLET BY MOUTH EVERY MORNING O N AN EMPTY STOMACH SOLD: 03/18/2020 [facility] 112 mcg 01/25/2020 12:00:00 AM EDT tablet 30 TAKE ONE TABLET BY MOUTH EVERY MORNING ON AN EMPTY STOMACH TAKE ONE TABLET BY MOUTH EVERY MORNING O N AN EMPTY STOMACH SOLD: 01/29/2020 [facility] 112 mcg 01/25/2020 12:00:00 AM EDT tablet 30 TAKE ONE TABLET BY MOUTH EVERY MORNING ON AN EMPTY STOMACH TAKE ONE TABLET BY MOUTH EVERY MORNING O N AN EMPTY STOMACH SOLD: 04/20/2020 [facility] 150 mg 01/20/2020 12:00:00 AM EDT capsule 60 TAKE ONE CAPSULE BY MOUTH TWICE A DAY MAXIMUM DAILY DOSE = 2 CAPSULES TAKE ONE CAPSULE BY MOUTH TWICE A DAY MAXIMUM DAILY DOSE = 2 CAPSULES SOLD: 02/24/2020 [facility] 145 mg 01/20/2020 12:00:00 AM EDT tablet 90 TAKE ONE TABLET BY MOUTH EVERY DAY WITH FOOD TAKE ONE TABLET BY MOUTH EVERY DAY WITH FOOD SOLD: 01/21/2020 [facility] 150 mg 01/20/2020 12:00:00 AM EDT capsule 60 TAKE ONE CAPSULE BY MOUTH TWICE A DAY MAXIMUM DAILY DOSE = 2 CAPSULES TAKE ONE CAPSULE BY MOUTH TWICE A DAY MAXIMUM DAILY DOSE = 2 CAPSULES SOLD: 01/21/2020 [facility] 90 mcg/actuation 01/06/2020 12:00:00 AM EDT HFA aerosol inha ler 8 INHALE TWO PUFFS BY MOUTH EVERY 4 TO 6 HOURS INHALE TWO PUFFS BY MOUTH EVERY 4 TO 6 HOURS SOLD: 01/08/2020 [facility] 112 mcg 12/30/2019 12:00:00 AM EDT tablet 30 TAKE ONE TABLET BY MOUTH EVERY DAY TAKE ONE TABLET BY MOUTH EVERY DAY SOLD: 01/04/2020 [facility] 150 mg 10/12/2019 12:00:00 AM EDT capsule 60 TAKE ONE CAPSULE BY MOUTH TWICE A DAY, MAXIMUM DAILY DOSE = 2 CAPSULES TAKE ONE CAPSULE BY MOUTH TWICE A DAY, MAXIMUM DAILY DOSE = 2 CAPSULES SOLD: 12/20/2019 [facility] 150 mg 10/12/2019 12:00:00 AM EDT capsule 60 TAKE ONE CAPSULE BY MOUTH TWICE A DAY, MAXIMUM DAILY DOSE = 2 CAPSULES TAKE ONE CAPSULE BY MOUTH TWICE A DAY, MAXIMUM DAILY DOSE = 2 CAPSULES SOLD: 10/13/2019 [facility] 150 mg 10/12/2019 12:00:00 AM EDT capsule 60 TAKE ONE CAPSULE BY MOUTH TWICE A DAY, MAXIMUM DAILY DOSE = 2 CAPSULES TAKE ONE CAPSULE BY MOUTH TWICE A DAY, MAXIMUM DAILY DOSE = 2 CAPSULES SOLD: 11/17/2019 [facility] Pravastatin Sodium 40 MG Oral Tablet Pravastatin Sodium 40 M G 09/19/2019 12:00:00 AM EDT 1.0 {tablet} active Pr avastatin Sodium 40 MG eCW1 (On License Of [facility]) 112 mcg 09/19/2019 12:00:00 AM EDT tablet 30 TAKE ONE TABLET BY MOUTH EVERY DAY IN THE MORNING ON AN EMPTY STOMACH TAKE ONE TABLET BY MOUTH EVERY DAY IN MORNING ON AN EMPTY STOMACH SOLD: 10/26/2019 [facility] 20 mg 09/19/2019 12:00:00 AM EDT tablet 90 TAKE ONE TABLET BY MOUTH EVERY 8 HOURS WITH FOOD OR MILK TAKE ONE TABLET BY MOUTH EVERY 8 HOURS W ITH FOOD OR MILK SOLD: 11/03/2019 [facility] 40 mg 09/19/2019 12:00:00 AM EDT tablet 90 TAKE ONE TABLET BY MOUTH EVERY DAY TAKE ONE TABLET BY MOUTH EVERY DAY SOLD: 09/20/2019 [facility] 20 mg 09/19/2019 12:00:00 AM EDT tablet 90 TAKE ONE TABLET BY MOUTH EVERY 8 HOURS WITH FOOD OR MILK TAKE ONE TABLET BY MOUTH EVERY 8 HOURS W ITH FOOD OR MILK SOLD: 12/20/2019 [facility] Pravastatin Sodium 40 MG Oral Tablet Pravastatin Sodium 40 M G 09/19/2019 12:00:00 AM EDT 1.0 {tablet} active Pr avastatin Sodium 40 MG eCW1 (On License Of [facility]) 112 mcg 09/19/2019 12:00:00 AM EDT tablet 30 TAKE ONE TABLET BY MOUTH EVERY DAY IN THE MORNING ON AN EMPTY STOMACH TAKE ONE TABLET BY MOUTH EVERY DAY IN MORNING ON AN EMPTY STOMACH SOLD: 11/27/2019 [facility] pantoprazole 40 MG Delayed Release Oral Tablet PANTOPRAZOLE SODIUM 09/19/2019 12:00:00 AM EDT tablet,delayed release (DR/EC) 30 T HAYDEN ONE TABLET BY MOUTH EVERY DAY TAKE ONE TABLET BY MOUTH EVERY DAY SOLD: 09/20/2019 [facility] 40 mg 09/19/2019 12:00:00 AM EDT tablet,delayed release (DR/EC) 30 TAKE ONE TABLET BY MOUTH EVERY DAY TAKE ONE TABLET BY MOUTH EVERY DAY SOLD: 11/27/2019 [facility] 112 mcg 09/19/2019 12:00:00 AM EDT tablet 30 TAKE ONE TABLET BY MOUTH EVERY DAY IN THE MORNING ON AN EMPTY STOMACH TAKE ONE TABLET BY MOUTH EVERY DAY IN MORNING ON AN EMPTY STOMACH SOLD: 09/20/2019 [facility] Pravastatin Sodium 40 MG Oral Tablet Pravastatin Sodium 40 M G 09/19/2019 12:00:00 AM EDT 1.0 {tablet} active Pr avastatin Sodium 40 MG eCW1 (On License Of [facility]) pantoprazole 40 MG Delayed Release Oral Tablet PANTOPRAZOLE SODIUM 09/19/2019 12:00:00 AM EDT tablet,delayed release (DR/EC) 30 T HAYDNE ONE TABLET BY MOUTH EVERY DAY TAKE ONE TABLET BY MOUTH EVERY DAY SOLD: 12/27/2019 [facility] 20 mg 09/19/2019 12:00:00 AM EDT tablet 90 TAKE ONE TABLET BY MOUTH EVERY 8 HOURS WITH FOOD OR MILK TAKE ONE TABLET BY MOUTH EVERY 8 HOURS W ITH FOOD OR MILK SOLD: 09/20/2019 [facility] pantoprazole 40 MG Delayed Release Oral Tablet PANTOPRAZOLE SODIUM 09/19/2019 12:00:00 AM EDT tablet,delayed release (DR/EC) 30 T HAYDEN ONE TABLET BY MOUTH EVERY DAY TAKE ONE TABLET BY MOUTH EVERY DAY SOLD: 10/26/2019 [facility] Pravastatin Sodium 40 MG Oral Tablet Pravastatin Sodium 40 M G 09/19/2019 12:00:00 AM EDT 1.0 {tablet} active Pr avastatin Sodium 40 MG eCW1 (On License Of [facility]) Levothyroxine Sodium 0.112 MG Oral Tablet Levothyroxin e Sodium 112 MCG Levothyroxine Sodium 112 MCG 09/19/2019 12:00:00 AM EDT active Levothyroxine Sodium 112 MCG eCW1 (On License Of [facility]) Pravastatin Sodium 40 MG Oral Tablet Pravastatin Sodium 40 M G 09/19/2019 12:00:00 AM EDT 1.0 {tablet} active Pr avastatin Sodium 40 MG eCW1 (On License Of [facility]) 40 mg 09/19/2019 12:00:00 AM EDT tablet 90 TAKE ONE TABLET BY MOUTH EVERY DAY TAKE ONE TABLET BY MOUTH EVERY DAY SOLD: 12/20/2019 [facility] Pravastatin Sodium 40 MG Oral Tablet Pravastatin Sodium 40 M G 09/19/2019 12:00:00 AM EDT 1.0 {tablet} active Pr avastatin Sodium 40 MG eCW1 (On License Of [facility]) 100-25 mcg/dose 08/22/2019 12:00:00 AM EDT blister with mitra ce 60 INHALE ONE PUFF BY MOUTH EVERY DAY INHALE ONE PUFF BY MOUTH EVERY DAY SOLD: 02/09/2020 [facility] 100-25 mcg/dose 08/22/2019 12:00:00 AM EDT blister with mitra ce 60 INHALE ONE PUFF BY MOUTH EVERY DAY INHALE ONE PUFF BY MOUTH EVERY DAY SOLD: 01/08/2020 [facility] 100-25 mcg/dose 08/22/2019 12:00:00 AM EDT blister with mitra ce 60 INHALE ONE PUFF BY MOUTH EVERY DAY INHALE ONE PUFF BY MOUTH EVERY DAY SOLD: 11/03/2019 [facility] 100-25 mcg/dose 08/22/2019 12:00:00 AM EDT blister with mitra ce 60 INHALE ONE PUFF BY MOUTH EVERY DAY INHALE ONE PUFF BY MOUTH EVERY DAY SOLD: 08/23/2019 [facility] 10-325 mg 08/22/2019 12:00:00 AM EDT tablet 40 TAKE ONE TABLET BY MOUTH EVERY 8 HOURS NEEDED MAXIMUM DAILY DOSE = 3 TABLETS TAKE ONE TABLET BY MOUTH EVERY 8 HOURS NEEDED MAXIMUM DAILY DOSE = 3 TABLETS SOLD: 08/23/2019 [facility] 100-25 mcg/dose 08/22/2019 12:00:00 AM EDT blister with mitra ce 60 INHALE ONE PUFF BY MOUTH EVERY DAY INHALE ONE PUFF BY MOUTH EVERY DAY SOLD: 12/07/2019 [facility] 100-25 mcg/dose 08/22/2019 12:00:00 AM EDT blister with mitra ce 60 INHALE ONE PUFF BY MOUTH EVERY DAY INHALE ONE PUFF BY MOUTH EVERY DAY SOLD: 10/01/2019 [facility] 10-325 mg 08/05/2019 12:00:00 AM EDT tablet 60 TAKE ONE TABLET BY MOUTH EVERY 6 HOURS NEEDED MAXIMUM DAILY DOSE = 4 TABLETS TAKE ONE TABLET BY MOUTH EVERY 6 HOURS NEEDED MAXIMUM DAILY DOSE = 4 TABLETS SOLD: 08/05/2019 [facility] 40 mg 07/22/2019 12:00:00 AM EDT tablet,delayed release (DR/EC) 30 TAKE ONE TABLET BY MOUTH EVERY DAY TAKE ONE TABLET BY MOUTH EVERY DAY SOLD: 07/22/2019 [facility] 125 mcg 07/22/2019 12:00:00 AM EDT tablet 30 TAKE ONE TABLET BY MOUTH EVERY DAY ON AN EMPTY STOMACH IN THE MORNING TAKE ONE TABLET BY MOUTH EVERY DAY ON AN EMPTY STOMACH IN THE MORNING SOLD: 08/22/2019 [facility] 40 mg 07/22/2019 12:00:00 AM EDT tablet,delayed release (DR/EC) 30 TAKE ONE TABLET BY MOUTH EVERY DAY TAKE ONE TABLET BY MOUTH EVERY DAY SOLD: 08/22/2019 [facility] 10-325 mg 07/22/2019 12:00:00 AM EDT tablet 60 TAKE ONE TO TWO TABLETS BY MOUTH EVERY 4 TO 6 HOURS NEEDED FOR PAIN MAXIMUM DAILY DOSE = 4 TABLETS TAKE ONE TO TWO TABLETS BY MOUTH EVERY 4 TO 6 HOURS NEEDED FOR PAIN MAXIMUM DAILY DOSE = 4 TABLETS SOLD: 07/22/2019 [facility] 20 mg 07/22/2019 12:00:00 AM EDT tablet 90 TAKE ONE TABLET BY MOUTH EVERY 8 HOURS WITH FOOD OR MILK TAKE ONE TABLET BY MOUTH EVERY 8 HOURS W ITH FOOD OR MILK SOLD: 07/22/2019 [facility] 125 mcg 07/22/2019 12:00:00 AM EDT tablet 30 TAKE ONE TABLET BY MOUTH EVERY DAY ON AN EMPTY STOMACH IN THE MORNING TAKE ONE TABLET BY MOUTH EVERY DAY ON AN EMPTY STOMACH IN THE MORNING SOLD: 07/22/2019 [facility] 10-325 mg 07/13/2019 12:00:00 AM EDT tablet 60 TAKE ONE TO TWO TABLETS BY MOUTH EVERY 4 TO 6 HOURS NEEDED FOR PAIN MAXIMUM DAILY DOSE = 6 TAKE ONE TO TWO TABLETS BY MOUTH EVERY 4 TO 6 HOURS NEEDED FOR PAIN MAXIMUM DAILY DOSE = 6 SOLD: 07/13/2019 [facility] 145 mg 07/08/2019 12:00:00 AM EDT tablet 90 TAKE ONE TABLET BY MOUTH EVERY DAY WITH FOOD TAKE ONE TABLET BY MOUTH EVERY DAY WITH FOOD SOLD: 10/13/2019 [facility] 145 mg 07/08/2019 12:00:00 AM EDT tablet 90 TAKE ONE TABLET BY MOUTH EVERY DAY WITH FOOD TAKE ONE TABLET BY MOUTH EVERY DAY WITH FOOD SOLD: 07/11/2019 [facility] 10-325 mg 07/04/2019 12:00:00 AM EDT tablet 60 TAKE ONE TO TWO TABLETS BY MOUTH EVERY 4 TO 6 HOURS NEEDED FOR PAIN MAXIMUM DAILY DOSE = 6 TABLETS TAKE ONE TO TWO TABLETS BY MOUTH EVERY 4 TO 6 HOURS NEEDED FOR PAIN MAXIMUM DAILY DOSE = 6 TABLETS SOLD: 07/04/2019 [facility] 150 mg 06/29/2019 12:00:00 AM EDT capsule 60 TAKE ONE CAPSULE BY MOUTH TWICE A DAY MAXIMUM DAILY DOSE = 2 CAPSULES TAKE ONE CAPSULE BY MOUTH TWICE A DAY MAXIMUM DAILY DOSE = 2 CAPSULES SOLD: 09/09/2019 [facility] 150 mg 06/29/2019 12:00:00 AM EDT capsule 60 TAKE ONE CAPSULE BY MOUTH TWICE A DAY MAXIMUM DAILY DOSE = 2 CAPSULES TAKE ONE CAPSULE BY MOUTH TWICE A DAY MAXIMUM DAILY DOSE = 2 CAPSULES SOLD: 06/29/2019 [facility] 150 mg 06/29/2019 12:00:00 AM EDT capsule 60 TAKE ONE CAPSULE BY MOUTH TWICE A DAY MAXIMUM DAILY DOSE = 2 CAPSULES TAKE ONE CAPSULE BY MOUTH TWICE A DAY MAXIMUM DAILY DOSE = 2 CAPSULES SOLD: 08/04/2019 [facility] 10-325 mg 06/24/2019 12:00:00 AM EDT tablet 56 TAKE ONE TO TWO TABLETS BY MOUTH EVERY 4 TO 6 HOURS NEEDED FOR PAIN MAXIMUM DAILY DOSE = 8 TABLETS TAKE ONE TO TWO TABLETS BY MOUTH EVERY 4 TO 6 HOURS NEEDED FOR PAIN MAXIMUM DAILY DOSE = 8 TABLETS SOLD: 06/24/2019 [facility] 10-325 mg 06/15/2019 12:00:00 AM EST tablet 42 TAKE ONE TABLET BY MOUTH EVERY 4 TO 6 HOURS NEEDED MAXIMUM DAILY DOSE = 6 TABLETS TAKE ONE TABLET BY MOUTH EVERY 4 TO 6 HOURS NEEDED MAXIMUM DAILY DOSE = 6 TABLETS SOLD: 06/17/2019 [facility] 20 mg 05/30/2019 12:00:00 AM EST tablet 90 TAKE ONE TABLET BY MOUTH EVERY 8 HOURS WITH FOOD TAKE ONE TABLET BY MOUTH EVERY 8 HOURS WITH FOOD SOLD: 06/02/2019 [facility] 2 % 05/20/2019 12:00:00 AM EST ointment 22 APPLY TO BOTH NOSTRILS TWO TIMES A DAY FOR 5 DAYS PRIOR TO DATE OF SURGERY APPLY TO BOTH NOSTRILS TWO TIMES A DAY FOR 5 DAYS PRIOR TO DATE OF SURGERY SOLD: 05/21/2019 [facility] 50 mg 05/16/2019 12:00:00 AM EST tablet 60 TAKE TWO TABLETS BY MOUTH AT BEDTIME NEEDED FOR SLEEP TAKE TWO TABLETS BY MOUTH AT BEDTIME NEEDED FOR SLEEP SOLD: 08/04/2019 [facility] 50 mg 05/16/2019 12:00:00 AM EST tablet 60 TAKE TWO TABLETS BY MOUTH AT BEDTIME NEEDED FOR SLEEP TAKE TWO TABLETS BY MOUTH AT BEDTIME NEEDED FOR SLEEP SOLD: 06/17/2019 [facility] 50 mg 05/16/2019 12:00:00 AM EST tablet 60 TAKE TWO TABLETS BY MOUTH AT BEDTIME NEEDED FOR SLEEP TAKE TWO TABLETS BY MOUTH AT BEDTIME NEEDED FOR SLEEP SOLD: 10/13/2019 [facility] 50 mg 05/16/2019 12:00:00 AM EST tablet 60 TAKE TWO TABLETS BY MOUTH AT BEDTIME NEEDED FOR SLEEP TAKE TWO TABLETS BY MOUTH AT BEDTIME NEEDED FOR SLEEP SOLD: 05/18/2019 [facility] 40 mg 04/22/2019 12:00:00 AM EST tablet 30 TAKE ONE TABLET BY MOUTH EVERY DAY TAKE ONE TABLET BY MOUTH EVERY DAY SOLD: 04/27/2019 [facility] 15 mg 04/12/2019 12:00:00 AM EST tablet 30 TAKE ONE TABLET BY MOUTH EVERY DAY WITH FOOD TAKE ONE TABLET BY MOUTH EVERY DAY WITH FOOD SOLD: 05/18/2019 [facility] 15 mg 04/12/2019 12:00:00 AM EST tablet 30 TAKE ONE TABLET BY MOUTH EVERY DAY WITH FOOD TAKE ONE TABLET BY MOUTH EVERY DAY WITH FOOD SOLD: 04/12/2019 [facility] Fenofibrate 145 MG Oral Tablet Fenofibrate 145 MG 03/28/2019 12:00: 00 AM EST 1.0 {tablet_with_food} active Fenofibra te 145 MG eCW1 (On License Of [facility]) 145 mg 03/28/2019 12:00:00 AM EST tablet 30 TAKE ONE TABLET BY MOUTH EVERY DAY WITH FOOD TAKE ONE TABLET BY MOUTH EVERY DAY WITH FOOD SOLD: 06/02/2019 [facility] 145 mg 03/28/2019 12:00:00 AM EST tablet 30 TAKE ONE TABLET BY MOUTH EVERY DAY WITH FOOD TAKE ONE TABLET BY MOUTH EVERY DAY WITH FOOD SOLD: 03/28/2019 [facility] Fenofibrate 145 MG Oral Tablet Fenofibrate 145 MG 03/28/2019 12:00: 00 AM EST active 1 tablet with food eCW1 (On License Of [facility]) Fenofibrate 145 MG Oral Tablet Fenofibrate 145 MG 03/28/2019 12:00: 00 AM EST 1.0 {tablet_with_food} active Fenofibra te 145 MG eCW1 (On License Of [facility]) Fenofibrate 145 MG Oral Tablet Fenofibrate 145 MG 03/28/2019 12:00: 00 AM EST 1.0 {tablet_with_food} active Fenofibra te 145 MG eCW1 (On License Of [facility]) Fenofibrate 145 MG Oral Tablet Fenofibrate 145 MG 03/28/2019 12:00: 00 AM EST active 1 tablet with food eCW1 (On License Of [facility]) Fenofibrate 145 MG Oral Tablet Fenofibrate 145 MG 03/28/2019 12:00: 00 AM EST active 1 tablet with food eCW1 (On License Of [facility]) 145 mg 03/28/2019 12:00:00 AM EST tablet 30 TAKE ONE TABLET BY MOUTH EVERY DAY WITH FOOD TAKE ONE TABLET BY MOUTH EVERY DAY WITH FOOD SOLD: 05/02/2019 [facility] Fenofibrate 145 MG Oral Tablet Fenofibrate 145 MG 03/28/2019 12:00: 00 AM EST 1.0 {tablet_with_food} active Fenofibra te 145 MG eCW1 (On License Of [facility]) Fenofibrate 145 MG Oral Tablet Fenofibrate 145 MG 03/28/2019 12:00: 00 AM EST 1.0 {tablet_with_food} active Fenofibra te 145 MG eCW1 (On License Of [facility]) 150 mg 03/17/2019 12:00:00 AM EST capsule 60 TAKE ONE CAPSULE BY MOUTH TWICE A DAY MAXIMUM DAILY DOSE = 2 CAPSULES TAKE ONE CAPSULE BY MOUTH TWICE A DAY MAXIMUM DAILY DOSE = 2 CAPSULES SOLD: 05/27/2019 [facility] 150 mg 03/17/2019 12:00:00 AM EST capsule 60 TAKE ONE CAPSULE BY MOUTH TWICE A DAY MAXIMUM DAILY DOSE = 2 CAPSULES TAKE ONE CAPSULE BY MOUTH TWICE A DAY MAXIMUM DAILY DOSE = 2 CAPSULES SOLD: 04/22/2019 [facility] 125 mcg 03/14/2019 12:00:00 AM EST tablet 30 TAKE ONE TABLET BY MOUTH EVERY MORNING ON AN EMPTY STOMACH TAKE ONE TABLET BY MOUTH EVERY MORNING O N AN EMPTY STOMACH SOLD: 06/17/2019 [facility] 125 mcg 03/14/2019 12:00:00 AM EST tablet 30 TAKE ONE TABLET BY MOUTH EVERY MORNING ON AN EMPTY STOMACH TAKE ONE TABLET BY MOUTH EVERY MORNING O N AN EMPTY STOMACH SOLD: 05/18/2019 [facility] 40 mg 03/14/2019 12:00:00 AM EST tablet,delayed release (DR/EC) 30 TAKE ONE TABLET BY MOUTH EVERY DAY TAKE ONE TABLET BY MOUTH EVERY DAY SOLD: 06/17/2019 [facility] 40 mg 03/14/2019 12:00:00 AM EST tablet,delayed release (DR/EC) 30 TAKE ONE TABLET BY MOUTH EVERY DAY TAKE ONE TABLET BY MOUTH EVERY DAY SOLD: 04/16/2019 [facility] 125 mcg 03/14/2019 12:00:00 AM EST tablet 30 TAKE ONE TABLET BY MOUTH EVERY MORNING ON AN EMPTY STOMACH TAKE ONE TABLET BY MOUTH EVERY MORNING O N AN EMPTY STOMACH SOLD: 04/16/2019 [facility] 40 mg 03/14/2019 12:00:00 AM EST tablet,delayed release (DR/EC) 30 TAKE ONE TABLET BY MOUTH EVERY DAY TAKE ONE TABLET BY MOUTH EVERY DAY SOLD: 05/18/2019 [facility] 100,000 unit/gram 02/17/2019 12:00:00 AM EST powder 60 APPLY TO AFFECTED AREA(S) TWO TIMES A DAY APPLY TO AFFECTED AREA(S) TWO TIMES A DAY SOLD: 04/22/2019 [facility] 100,000 unit/gram 02/17/2019 12:00:00 AM EST powder 60 APPLY TO AFFECTED AREA(S) TWO TIMES A DAY APPLY TO AFFECTED AREA(S) TWO TIMES A DAY SOLD: 08/05/2019 [facility] 100,000 unit/gram 02/17/2019 12:00:00 AM EST powder 60 APPLY TO AFFECTED AREA(S) TWO TIMES A DAY APPLY TO AFFECTED AREA(S) TWO TIMES A DAY SOLD: 06/17/2019 [facility] 100-25 mcg/dose 01/27/2019 12:00:00 AM EDT blister with mitra ce 60 INHALE ONE PUFF BY MOUTH EVERY DAY INHALE ONE PUFF BY MOUTH EVERY DAY SOLD: 06/17/2019 [facility] 100-25 mcg/dose 01/27/2019 12:00:00 AM EDT blister with mitra ce 60 INHALE ONE PUFF BY MOUTH EVERY DAY INHALE ONE PUFF BY MOUTH EVERY DAY SOLD: 07/22/2019 [facility] 100-25 mcg/dose 01/27/2019 12:00:00 AM EDT blister with mitra ce 60 INHALE ONE PUFF BY MOUTH EVERY DAY INHALE ONE PUFF BY MOUTH EVERY DAY SOLD: 04/16/2019 [facility] 100-25 mcg/dose 01/27/2019 12:00:00 AM EDT blister with mitra ce 60 INHALE ONE PUFF BY MOUTH EVERY DAY INHALE ONE PUFF BY MOUTH EVERY DAY SOLD: 05/18/2019 [facility] 20 mg 01/06/2019 12:00:00 AM EDT tablet 90 TAKE 1 TABLET BY MOUTH EVERY 8 HOURS WITH FOOD OR MILK TAKE 1 TABLET BY MOUTH EVERY 8 HOURS WITH FOOD OR MILK SOLD: 04/16/2019 [facility] Insurance Providers Payer name Policy type / Coverage type Policy ID Covered green party ID Covered green party's relationship to baez Policy Baez Plan Information HUMANA GOLD [id number] SP [id number] HUMANA GOLD [id number] SP [id number] [place] PPO 302/[id number] SP [id number] Humana Medicare F [id number] SELF [id number] Humana Medicare F [email or web address] SELF [email or web address] MEDICARE [id number] SP [id number] Humana Medicare F [id number] SELF [id number] DME Jurisdiction A [facility] C [id number] SELF [id number] MEDICARE MCA [id number] S [id number] MEDICARE MCA [id number] S [id number] MEDICAID [id number] MEDICARE C [id number] S [id number] MEDICAID UNAVAILABLE UNAVAILA BLE Medicare C [id number] SELF [id number] DME Jurisdiction A [facility] C [id number] SELF [id number] Medicare C [id number] SELF [id number] [place] Medicare Primary [id number] Self [id number] [place] MED[place] [place] [id number] S [id number] [place]ICARE - [place] [id number] S [id number] ANSI-Medicare Part B [id number] [place] [employer] [id number] S [id number] [place]ICARE - [place] [id number] S [id number] [facility] COMMUNITY PLAN MCDO [id number] SP [id number] HMO BLUE [id number] SP [id number] ANSI-Medicare Part B [id number] ANSI-Medicare Part B [id number] ANSI-Medicare Part B [id number] ANSI-Medicare Part B [id number] ANSI-Medicare Part B [id number] ANSI-Medicare Part B [id number] ANSI-Medicare Part B [id number] ANSI-Medicare Part B [id number] [place] MED[employer]ARE [employer]ISION [id number] S [id number] [place]ICARE - [place] [id number] S [id number] ANSI-Medicare Part B [id number] MEDICARE [id number] SP [id number] ANSI-Medicare Part B [id number] ANSI-Medicare Part B [id number] ANSI-Medicare Part B [id number] ANSI-Medicare Part B [id number] UNAVAILABLE UNAVAILA BLE MEDICARE [facility] [id number] S [id number] A MEDICARE [facility] [id number] S [id number] A MEDICARE - [place] [facility] [id number] S [id number] MEDICARE PART A M [id number] S [id number] MEDICARE M [id number] S [id number] A [facility] Community Plan Medigap Part B Self [place]ig[place] Part B Self [place] Self MEDICARE A [id number] Self [id number] A MEDICAID [id number] SP [id number] MEDICARE C [id number] S [id number] A SELF PAY SP UNAVAILABLE UNAVAILA BLE [facility] COMM HMO [id number] S [id number] [facility] COMMUNITY PLAN MCDO [id number] SP [id number] [facility] P [id number] S [id number] MEDICAID S [id number] S [id number] BLUE CROSS STONE PLAN [id number] SP [id number] [employer] BCBS P [id number] S [id number] HMO BLUE P [id number] S [id number] Problems, Conditions, and Diagnoses Code Display Name Description Problem Type Effective Dates Data Source(s) Z96.642 [id number] Presence of left artificial hip joint Pro blem 05/26/2019 12:00:00 AM EST eCW1 (On License Of [facility]) Z96.642 [id number] Presence of left artificial hip joint Pro blem 05/26/2019 12:00:00 AM EST eCW1 (On License Of [facility]) Surgeries/Procedures Procedure Description Date Indications Data Source(s) Office Visit, Est Pt., Level 2 FC 05/26/2019 12:00:00 AM EST eCW1 (On License Of [facility]) Office Visit, Est Pt., Level 3 PC 05/26/2019 12:00:00 AM EST eCW1 (On License Of [facility]) Results ID Date Data Source [id number] 05/19/2020 11:00:00 AM EST [facility] Name Value Range Interpretation Code Description Data Tiffanie rce(s) Supporting Document(s) SARS coronavirus 2 RNA Not Detected [facility] [place] This lab was ordered by [facility] and reported by [facility]. ID Date Data Source LIPID PANEL (CARDIAC RISK) 05/07/2020 12:00:00 AM EST eCW1 ( On License Of [facility]) Name Value Range Interpretation Code Description Data Tiffanie rce(s) Supporting Document(s) Triglyceride [Mass/volume] in Serum or Plasma by calculation 183 <150 TRIGLYCERIDES LEVEL eCW1 (On License Of [facility]) Cholesterol in LDL [Mass/volume] in Serum or Plasma by calculation 13 6 <100 eCW1 (On License Of [facility]) Cholesterol in HDL [Moles/volume] in Serum or Plasma 49 >40 HDL CHOLESTEROL W1 (On License Of [facility]) 173 NON-HDL-C eCW1 ([facility]) Cholesterol [Moles/volume] in Serum or Plasma 222 <200 CHOLESTEROL LEVEL [facility] (On License Of [facility]) 4.530 <5 CHOLESTEROL RISK RATIO eCW1 ([facility]) ID Date Data Source [id number] 05/07/2020 12:00:00 AM EST eCW1 (Critical access hospital) Name Value Range Interpretation Code Description Data Tiffanie rce(s) Supporting Document(s) Hemoglobin A1c/Hemoglobin.total in Blood 4.8 eCW1 (On License Of [facility]) ID Date Data Source FREE T4 & TSH PANEL 05/07/2020 12:00:00 AM EST eCW1 (Critical access hospital) Name Value Range Interpretation Code Description Data Tiffanie rce(s) Supporting Document(s) 2.070 0.358-3.740 eCW1 ([facility]) 1.39 0.76-1.46 eCW1 ([facility]) ID Date Data Source Comprehensive Metabolic Profile (CMP) 05/07/2020 12:00:00 AM EST eCW1 (On License Of [facility]) Name Value Range Interpretation Code Description Data Tiffanie rce(s) Supporting Document(s) 15 7-18 BLOOD UREA NITROGEN eCW1 ([facility]) 72 70-100 GLUCOSE, FASTING eCW1 (Critical access hospital) 0.72 0.55-1.30 CREATININE FOR GFR eCW1 ([facility]) 141 136-145 SODIUM LEVEL eCW1 ([facility]) 4.5 3.5-5.1 POTASSIUM SERUM eCW1 ([facility]) > 60.0 >51 GLOMERULAR FILTRATION RATE eCW 1 (On License Of [facility]) 106 98-107 CHLORIDE LEVEL eCW1 (On License Of [facility]) 30 21-32 CARBON DIOXIDE LEVEL eCW1 ([facility]) 71 12-78 ALT/SGPT eCW1 ([facility]) 9.5 8.5-10.1 CALCIUM LEVEL eCW1 (On License Of [facility]) 49 7-37 AST/SGOT eCW1 ([facility]) 0.3 0.2-1.0 BILIRUBIN,TOTAL eCW1 ([facility]) 89 45-117 ALKALINE PHOSPHATASE eCW1 ([facility]) 3.8 3.2-5.2 ALBUMIN eCW1 ([facility]) 7.4 6.4-8.2 TOTAL PROTEIN eCW1 (On License Of [facility]) 1.1 1.2-2.2 ALBUMIN/GLOBULIN RATIO eCW1 ([facility]) ID Date Data Source [id number] 01/17/2020 08:17:17 AM EDT [facility] PC[facility]: Belen KraftRYAN: 1970Provider: Clari Giraldo: 01/05/2020 History of Present IllnessPatient follows up today for both hips, she is status post revision on the left and primary on the right. Patient states she has no pain in her left but she still feels some instability. She feels as though the hip slips on her. She notices it when she is sitting. She has no associated pain with this. She is complaining of sciatica symptoms on the right side but no pain in her right hip. She is seen in pain management locally. Results/DataXRays were ordered, obtained and interpreted today in the office. Indication: pain/dysfunction. Side: Bilateral Site: Hip, Pelvis Views: 3 Views, and Pelvis Findings: no new fractures or dislocations. No evidence of bearing wear, osteolysis, implant migration or loosening. the joint remains reduced. hardware/implant is in good position. 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 Indication: pain/dysfunction.); Status:Complete; Done: 05Jan2020 Perform:SOS14 (General); Due:19Jan2020; Last Updated By:Tsering Mendez; 01/05/2020 2:34:11 PM;Ordered; For:Pain of both hip joints; Ordered By:Vita Giraldo;Weight Bearing Status : Weight bearing Patient overall is doing well. She does have some sciatica symptoms on the right side. She does see someone for her back locally which I encouraged her to make an appointment with. Otherwise she has no complaints in regards to her right hip. She does have still a catching sensation in her left hip. She does have a bony ossicle coming off around the greater trochanter and I am wondering if this is causing this sensation. At this point she is been to live with her symptoms as she does not have any pain. I told her if things get worse she can let me know. She will return to the office in 6 months time with updated x-rays. Antibiotic prophylaxis was discussed. Work / School NoteThe patient is not working at this time. Belen Kraft is retired. This document was dictated and electronically signed using [employer] software. A reasonable attempt at proof reading has been made to minimize errors. Please call with any questions. Signatures Electronically signed by : Vita Giraldo PA-C; Jan 05 2020 3:08PM EST (Author) Electronically signed by : Brett Winn M.D.; 2020 4:58PM EST (Author) Electronically signed by : Vita Giraldo PA-C; Jan 12 2020 12:07PM EST (Author) Electronically signed by : Brett Winn M.D.; Jan 17 2020 8:17AM EST (Author) Name Value Range Interpretation Code Description Data Tiffanie rce(s) Supporting Document(s) ID Date Data Source [id number] 08/25/2019 10:07:50 AM EDT [facility] PCName: Belen DallasDOB: 1970Provider: Jian Winn: 08/22/2019 Plan Start: HYDROcodone-Acetaminophen 10-325 MG Oral Tablet ([place]); take 1 tablet every8 hrs PRN MDD3 REF#[id number] Rx By: Brett Winn; Dispense: 0 Days ; #:40 Tablet; Refill: 0;For: Aftercare following surgery of the musculoskeletal system, Joint pain, hip, Status post revision of total hip replacement; RONEN = N; Verified Transmission to [facility]48; Last Updated By: Sherley [employer]; 08/22/2019 4:41:35 PM X- Ray I Hip-Uni Pelvis - 2 or 3 views (XRays were ordered, obtained and interpretedtoday in the office. Indication: pain/dysfunction.); Status:Complete; Done: 22Aug2019 Perform:SOS14 (General); Due:05Sep2019; Last Updated By:Tsering Mendez; 08/22/2019 12:51:02 PM;Ordered; For:Joint pain, hip; Ordered By:Brett Winn;Weight Bearing Status : Weight bearingLaterality: : Left You need to quit smoking.; Status:Complete; Done: [id number] Last Updated By:Melody Jansen; 08/22/2019 12:48:10 PM;Ordered; For:SocHx: Current smoker; Ordered By:Brett Winn; Assessment: Post-surgical care, revision left hip replacement. Belen is making slow-lisseth progress after left hip revisi on. She is hampered by the inability to go to PT due to COVID-19. Her left hip is benign; it is irritable. It is mainly bursal irritation. X-rays ordered, taken and interpreted today of the pelvis and three views of the left hip show the implant in good position without problems.She will do her home program until she can go to outpatient therapy. I will give her one last refill of hydrocodone and she knows that this is the last prescription. We will see her back here for her left hip in three months. Signatures Electronically signed by : Otilia Villa, ; Aug 23 2019 11:44AM EST Electronically signed by : Brett Winn M.D.; Aug 25 2019 10:07AM EST (Author) Name Value Range Interpretation Code Description Data Tiffanie rce(s) Supporting Document(s) ID Date Data Source [id number] 07/25/2019 09:02:45 AM EDT [facility] PC[facility]: Belen Zhane: 1970Provider: Jian Winn: 07/21/2019 Reason For VisitVerbal consent obtained from the patient for telemedicine visit. This assessment was done using telemedicine as a result of social distancing due to the outbreak of COVID-19. Five minutes Assessment 1. Joint pain, hip (719.45) (M25.559) Plan 1. Renew: HYDROcodone-Acetaminophen 10-325 MG Oral Tablet; Take 1 to 2 tablets every 4 to 6 hours as needed for pain. MDD 4 ASSESSMENT: Post-surgical care left hip.The patient is generally doing well after revision of left hip replacement for instability. She is not getting therapy because she did not want to go out. She has discomfort and is still on hydrocodone.Examination of the left hip, done via a camera, shows that the wound looks good.I am going to refill her hydrocodone 10/325 mg and will reduce it to four a day for the next month. I will arrange for home therapy. We will call her for a visit in one month. Signatures Elect ronically signed by : Letty Bryant, ; Jul 22 2019 8:56AM EST Electronically signed by : Brett Winn M.D.; Jul 25 2019 9:02AM EST Name Value Range Interpretation Code Description Data Tiffanie rce(s) Supporting Document(s) ID Date Data Source [id number] 06/23/2019 12:35:49 PM EDT [facility] PCName: Belen DallasDOB: 1970Provider: Clari Giraldo: 06/23/2019 History of Present IllnessPatient follows up today for her left hip, she status post revision. Patient has been maintaining hip dislocation precautions. She's been wearing her knee immobilizer at all times. She's on aspirin for DVT prophylaxis. She's doing home exercise program. Assessment 1. Status post revision of total hip replacement (V43.64) (Z96.649)Patient is status post left hip revision Plan X-Ray I Hip-Uni Pelvis - 2 or 3 views (XRays were ordered, obtained and interpretedtoday in the office. Indication: pain/dysfunction.); Status:Complete; Done: 23Jun2019 Perform:SOS14 (General); Due:07Jul2019; Last Updated By:Angie Bartlett; 06/23/2019 10:53:48 AM;Ordered; For:Pain of left hip; Ordered By:Vita Giraldo;Weight Bearing Status : Weight bearingLaterality: : LeftPatient will maintain posterior hip dislocation precautions for 3 months postoperatively. She remain in her k nee immobilizer for 6 weeks postop. I have her continue on her aspirin for 4 weeks postoperatively. We discussed physical therapy and due to the knee immobilizer I don't think that she'll be able to do much at PT. So we'll hold off for now but she'll continue with the exercises that she was taught at the hospital. I gave her refill on her hydrocodone. She'll follow-up in the office in approximately 1 month's time with x-rays. Work / School Note Belen Kraft is on total disability until next visit. DisclaimersThis document was dictated and electronically signed using BigBad software. A reasonable attempt at proof reading has been made to minimize errors. Please call with any questions. Signatures Electronically signed by : Vita Giraldo PA-C; Jun 23 2019 11:05AM EST (Author) Electronically signed by : Brett Winn M.D.; Jun 23 2019 12:35PM EST (Author) Name Value Range Interpretation Code Description Data Tiffanie rce(s) Supporting Document(s) ID Date Data Source [id number] 06/13/2019 06:49:00 AM EST [facility] [place], [place] [address]XYEQPXZ NAME: ZANA KRAFT OF : 1970REPORT: DISCHARGE SUMMARYPATIENT NUMBER: [id number] STATUS: IPMEDICAL RECORD NUMBER: [id number] OF ADMISSION: 06/08/2019DATE OF DISCHARGE: 06/10/2019ROOM: 01PRINCIPAL DIAGNOSIS: Mechanical failure of orthopedic device, status postleft total hip.SECONDARY DIAGNOSES: Obesity with BMI of 38.75, gastroesophageal refluxdisease, seasonal allergies, hyperlipidemia, hypothyroidism, moderatepersistent asthma, vitamin D deficiency, chronic hoarseness with history ofvocal cord polyps, sciatica, headaches, chronic lower back pain, statuspost left total hip with previous dislocation in 2017, elevated LFTs,smoker, impaired fasting glucose.Preoperatively, the patient underwent workup with Dr. Winn and was alsoseen by her primary care provider, Renee Jaquez, family nursepractitioner, both of which [facility]HOSPITAL COURSE: The patient is a pleasant 49-year-old female who wasadmitted through same-day admissions on 06/08/2019 with a diagnosis of lefthip pain, mechanical failure of orthopedic device, status post left totalhip arthroplasty. The patient underwent a revision of left total hip undergeneral anesthesia, was placed on pathway to include anticoagulant therapy,physical therapy, and pain management. Lab work has been followed duringhospital stay. As of 06/10/2019, sodium is 139, potassium is 3.7, chlorideis 107, CO2 is 27, BUN is 6, creatinine is 0.57, and glucose is 83. CBCshows a white count of 8.8, hemoglobin of 11.2, hematocrit of 32.8, andplatelet count of 164. The patient has been seen by Physical Therapy aswell as Occupational Therapy. She has continued to progress, particularlyafter of pain management has been adjusted. On the , the patient wasable to ambulate 25 feet, slow steady step-to gait, no loss of balance. She was able to ambulate 90 feet the day prior.PHYSICAL E XAMINATION: Vital signs: Temperature is 36.6, pulse is 80,respirations are 18, blood pressure is 126/70, and room air oximetry is 97percent. General: The patient is alert and oriented x3. Heart: RegularS1 and S2. Abdomen: Soft. Bowel sounds are active. No tenderness. Extremities: Calves are soft and nontender. The left hip has an AquacelAG dressing over the hip incision, which remains dry and intact. Neurologic: Motor and sensory remain intact to both lower extremities.DISCHARGE PLAN: The discharge plan is for the patient be discharged home. The patient is to follow Dr. Winn's preprinted instruction sheetregarding total hips. The patient may weight bear as tolerated. Shouldcontinue with posterior hip dislocation precautions including a pillowbetween legs when in bed or lying down for 3 months postoperatively andwell being in a knee immobilizer to the left leg at all times, maybe loosenfor skin care. This will be for 6 weeks postoperatively. The patientshould continue with range of motion, strengthening exercises, and gaittraining. Ice bags should be applied to left hip, going on 20 minutesevery hour as need for pain and swelling. JANET stockings should go on bothlegs in the morning and off at bedtime. The patient should increaseactivities as tolerated, including walking using assistive device. Thepatient should do no heavy lifting, pulling, or pushing. No driving untilcleared by Dr. Winn's office and not while under the influence ofIndex. The patient is to sponge bathe only. No tub baths orsubmerging water until cleared by Dr. Winn's office. In regards to theleft hip surgical incision, the Aquacel AG dressing will remain in placeuntil seen in Dr. Winn's office, where both the Aquacel and sofiya areto be removed. The patient may resume her usual diet. Encouraginglow-fat, low-cholesterol, and no added salt. Dr. Winn should be notifiedfor any temperature greater than 101.5, chills, increasing pain, redness,swelling, or drainage. The patient is to be seen in followup with office as scheduled. For any questions or concerns, the patient hasbeen directed to call the office at [phone].DISCHARGE MEDICATIONS: Include nasal lasting 1 spray each nostril twicedaily baclofen 20 mg two times daily, ferrous gluconate 324 mg twice daily,fenofibrate 145 mg 1 tablet by mouth every day with food, Breo Ellipta 100mcg/25 mcg one blister pack inhaled daily in the morning, Flonase AllergyRelief 50 mcg 1 spray each nostril as need for nasal congestion,levothyroxine 125 mcg by mouth every morning, meloxicam 15 mg by mouthevery evening, Protonix 40 mg by mouth every morning, Lyrica 150 mg bymouth twice daily, Crestor 40 mg by mouth every evening, albuterol 90 mcg 2puffs inhaled every 4 hours as need for shortness of breath. The patientwill be on aspirin for DVT prophylaxis, for which she should take 81 mg bymouth twice daily for 4 weeks postoperatively and then may resume her dailydosing. For pain management, the patient is on Hydrocodone/uhwjspxtglrfl38/325 mg 1 or 2 tablets every 4 to 6 hours as need for ekxbqpwa-dd-rdjojifmvm or the patient may use acetaminophen 325 mg 2 tablets every 6 hours asneed for mild pain. The patient has been instructed not to exceed morethan 3000 mg in total daily of acetaminophen. The patient has been advisedto use MiraLax 17 g 1 packet daily as need for constipation, Zofran ODT 4mg 1 tablet every 6 hours as need for nausea or vomiting.ALLERGIES: Include latex which caused rash. Penicillin caused diarrhea.I-STOP NUMBER: [id number].DICTATED BY: Guerita Matias NPDictated: 06/10/2019 12:37DT: 06/10/2019 12:56Job #: [id number]: MD Brett De Jesus MDNOTE: [facility] computer generated reports are notconfirmed or authenticated unless they are signed by the providerElectronically Authenticated by:GUERITA MATIAS NP On 06/13/2019 06:49 AM EST Name Value Range Interpretation Code Description Data Tiffanie rce(s) Supporting Document(s) ID Date Data Source [id number] 06/10/2019 07:51:02 AM EST [facility] Name Value Range Interpretation Code Description Data Tiffanie rce(s) Supporting Document(s) SODIUM 139 mmol/L (136-145) [facility] POTASSIUM 3.7 mmol/L (3.6-5.2) [facility] CHLORIDE 105 mmol/L (100-108) [facility] CO2 27 mmol/L (22-31) [facility] ANION GAP 7 mmol/L (7-16) [facility] UREA NITROGEN 6 mg/dL (7-24) L [facility] CREATININE 0.57 mg/dL (0.60-1.00) L [facility] BUN/CREAT RATIO 10.5 RATIO (10.0-20.0) [facility] GLUCOSE 83 mg/dL (70-99) [facility] CALCIUM 8.4 mg/dL (8.4-10.2) [facility] GFR >60 ml/min/1.73m2 (>59) [facility] GFR ( AMER) >60 ml/min/1.73m2 (>59) [facility] GFR INTERPRETATION [facility] --NORMAL KIDNEY FUNCTION OR MILD DISEASE - GFR >OR= 60CHRONIC KIDNEY DISEASE - GFR 15 - 59RENAL FAILURE - GFR <15 Est. GFR calculation based on the MDRDstudy equation, which assumes a steadystate for creatinine. Est. GFR should notbe used for medication dosing. ID Date Data Source [id number] 06/10/2019 07:27:40 AM EST [facility] Name Value Range Interpretation Code Description Data Tiffanie rce(s) Supporting Document(s) WBC 8.8 10*3/uL (4.1-11.0) [facility] [place] RBC 3.57 10*6/uL (4.00-5.40) L [facility] HGB 11.2 g/dL (12.0-16.0) L [facility] HCT 32.8 % (36.0-47.0) L [facility] MCV 92.0 fL (80.0-95.0) [facility] MCH 31.3 pg (27.0-32.0) [facility] MCHC 34.0 g/dL (32.0-36.0) [facility] RDW 13.5 % (10.5-14.5) [facility] PLT 164 10*3/uL (150-450) [facility] MPV 9.6 fL (7.1-10.7) [facility] ID Date Data Source [id number] 06/15/2019 10:53:00 AM EST [facility] [address] [address]MOP[place]BY NAME: ZANA KRAFT OF : 1970REPORT: OPERATIONPATIENT NUMBER: [id number] STATUS: IPMEDICAL RECORD NUMBER: [id number] OF ADMISSION: 06/08/2019DATE OF DISCHARGE:ROOM: 01DATE OF PROCEDURE: 06/08/2019PREOPERATIVE DIAGNOSIS: Left hip pain instability of THRPOSTOPERATIVE DIAGNOSIS: SamePROCEDURE: Revision of left THR by head exchange and insertion of newacetabulum and liner.SURGEON: Brett Winn MDFIRST ENDOSCOPY RN: Brett CHAVES (a qualified nor unqualified residentwas not available for any or part of the case). ANESTHESIA: GA.PREOPERATIVE ANTIBIOTICS: Intravenous Kefzol was given within 30 minutes ofincision time and ordered to be stopped within 24 hours of surgery.ESTIMATED BLOOD LOSS: 400 mL.IMPLANTS USED: Head: J&J Articuleze 03/26 28mm head, plus 8.5 with [id number] MDM UHMWPE MDM cap. Acetabulum: Javier Trident II cluster hole 52mm. Insert: 42 mm MDM insert.INDICATIONS FOR PROCEDURE: Painful hip not responding to conservativemeasures.COUNSELING: The patient was informed of the risks and benefits of surgery. The risks had been discussed in the outpatient setting, at the preadmissionclinic and again in the holding area. Specifically discussed but notlimited to were the risks of infection, bleeding, hematoma, bloodtran sfusion, dislocation, limb length inequality requiring a shoe lift,thrombosis, embolism, fracture, wound failure, lack of full pain relief,stiffness, neurovascular injury particularly foot drop, loosening, need forfurther surgery, leg swelling, heart attack, stroke and . The patientacknowledged and accepted these risks based on the possible benefit of painrelief achievable with revision total hip replacement surgery. Allquestions were answered.The correct limb was marked and the patient brought to the operating room(OR).PREOPERATIVE PLANNING: The radiographs were templated in Dr Winn's officeand the appropriate implant selected. This was confirmed preoperatively inthe OR.DESCRIPTION OF PROCEDURE: The patient was placed in the lateral position onthe operating room table. The pressure areas were padded. A Stulbergpelvic retainer was applied to stabilize the pelvis. The lower extremitywas then prepared and draped in the usual sterile fashion utilizing the'Candy-Cane' and ChloraPrep. Impervious drapes were applied and Iodophorimpregnated skin dressings (Ioban) attached in a 'no touch' technique.The skin incision was marked. A posteriorly placed incision was madeutilizing the old incision in part. The skin and subcutaneous tissues weredissected down sharply and hemostasis was achieved using electrocautery. The g. sarah was split in the line of its fibers and a small part of thefascia toy divided. On entering the deeper layers, it was evident thatmetallic staining was present around the rotators and trochanter. Theexternal rotators and sciatic nerve were easily identified. The nerve wasconsidered and protected throughout. The rotators including the piriformiswere divided leaving the g. minimus intact.The constrained head was dislocated and removed. The locking mechanism hadfailed. The taper was noted to be acceptable. The stem was stable andmarginally verted. Proximal osteolysis was minimal. Necrotic tissue wasdebrided. There was metallic staining throughout the synovium.At this point, appropriate anterior and inferior Wellington-neck retractors wereplaced in combination with a [place] and Jasbir retractor to gainexposure. The trunnion was subluxed anteriorly into a supra-acetabularpouch. A clear view of the acetabulum was possible.The cup was not loose but was in a neutral position. It was easily removedwith the Shea extractor. The acetabulum was debrided of membranousmaterial and denuded bone exposed. The anterior wall was thin but thecolumns were intact. I reamed to get better bone and stopped at 51mm. Thebone contact was good and I felt that an uncemented cup was reasonable toattempt. The definitive cup was placed with a surprisingly good fit inappropriate anteversion and closure. The definitive liner was placed. Theliner seated fully and would not move on stressing.The femur was re-assessed and various heads trialed. Trial reductionshowed good limb length equality, offset as well as overall stability. There was no impingement or tendency for dislocation in flexion alone,flexion with adduction, flexion and external rotation, extension alone orextension with internal or external rotation. At 90 degrees of flexion and50 degrees of internal rotation, the hip dislocated. The stability wastherefore considered to be adequate. The entire wound was again lavagedwith saline and the definitive femoral component placed. The fit was verysolid.Closure was achieved in layers. The external rotators were somewhat raggedbut viable and were first reattached through drill holes in the trochanterwith 2 Vicryl. The sciatic nerve was palpated and was undamaged andwithout tethering. The fascia toy and gluteus sarah was then reapposedwith 2 Vicryl. 2-0 Vicryl was applied in the subcutaneous fascia. Absorbable sutures and adhesive were placed on the skin. An absorbentdressing was applied. The patient was transferred to recovery in a stablecondition.WBA. 6 weeks knee immobilizer and 3 months of hip precautions.DICTATED BY: JANA Koenigictated: 06/09/2019 11:58DT: 06/09/2019 12:40Job #: [id number]: [facility] computer generated reports are not confirmed orauthenticated unless they are signed by the providerElectronically Authenticated by:BRETT WINN MD On 06/15/2019 10:53 AM EST Name Value Range Interpretation Code Description Data Tiffanie e(s) Supporting Document(s) ID Date Data Source [id number] 06/09/2019 07:28:01 AM EST [facility] Name Value Range Interpretation Code Description Data Tiffanie e(s) Supporting Document(s) SODIUM 141 mmol/L (136-145) [facility] POTASSIUM 3.8 mmol/L (3.6-5.2) [facility] CHLORIDE 108 mmol/L (100-108) [facility] CO2 27 mmol/L (22-31) [facility] ANION GAP 6 mmol/L (7-16) L [facility] UREA NITROGEN 8 mg/dL (7-24) [facility] CREATININE 0.58 mg/dL (0.60-1.00) L [facility] BUN/CREAT RATIO 13.8 RATIO (10.0-20.0) [facility] GLUCOSE 127 mg/dL (70-99) H [facility] CALCIUM 7.8 mg/dL (8.4-10.2) L [facility] GFR >60 ml/min/1.73m2 (>59) [facility] GFR ( AMER) >60 ml/min/1.73m2 (>59) [facility] GFR INTERPRETATION [facility] --NORMAL KIDNEY FUNCTION OR MILD DISEASE - GFR >OR= 60CHRONIC KIDNEY DISEASE - GFR 15 - 59RENAL FAILURE - GFR <15 Est. GFR calculation based on the MDRDstudy equation, which assumes a steadystate for creatinine. Est. GFR should notbe used for medication dosing. ID Date Data Source [id number] 06/09/2019 06:57:57 AM EST [facility] Name Value Range Interpretation Code Description Data Tiffanie [facility](s) Supporting Document(s) WBC 7.8 10*3/uL (4.1-11.0) [facility] [place] RBC 3.29 10*6/uL (4.00-5.40) L [facility] HGB 10.3 g/dL (12.0-16.0) L [facility] HCT 30.4 % (36.0-47.0) L [facility] MCV 92.7 fL (80.0-95.0) [facility] MCH 31.3 pg (27.0-32.0) [facility] MCHC 33.8 g/dL (32.0-36.0) [facility] RDW 13.7 % (10.5-14.5) [facility] PLT 148 10*3/uL (150-450) L [facility] MPV 9.7 fL (7.1-10.7) [facility] ID Date Data Source [id number] 06/08/2019 03:03:00 PM [facility] DATE OF EXAM: 06/08/2019EXAM:Pelvis 1V O r 2V CLINICAL INDICATION: REVISION LEFT MARVIN TECHNIQUE: Two supine views of the pelvis were obtained. COMPARISON: 02/09/2017 FINDINGS: The patient is status post revision of a left hip prosthesis. The hardware appears intact, well seated and well aligned. There are associated post surgical changes. There is a right hip prosthesis appears intact. IMPRESSION: Status post left hip prosthesis revision. Professional interpretation performed at [facility] .End of diagnostic report for accession: [id number] Interpreted: Ana Paula Medinascribed: 06/08/2019 03:02 PMSigned: 06/08/2019 03:03 PM Ana Paula Medina DO [facility] ACC # [id number] [facility] # [id number] Name Value Range Interpretation Code Description Data Tiffanie rce(s) Supporting Document(s) ID Date Data Source [id number] 06/10/2019 05:41:10 PM EST Lab [place], [place] [address]Tel# SURGICAL PATHOLOGY REPORTPatient Name:BELEN KRAFT:1970Received:06/08/2019Accession #:[id number]) Received: A: Removed implants, left hipClinical Diagnosis and History: History of left total hip pain due to hip fracture. DIAGNOSIS:LEFT HIP IMPLANTS AND TISSUE - FRAGMENTS OF VIABLE BONE AND BONE MARROW WITH NO SIGNIFICANT HISTOPATHOLOGIC FINDINGS; FRAGMENTS OF DENSE FIBROUSTISSUE WITH ABUNDANT HEMOSIDERIN LADEN HISTIOCYTES; NO SIGNIFICANT ACUTEINFLAMMATION IS IDENTIFIED.PLASTIC AND METALLIC COMPONENTS CONSISTENT WITH ORTHOPEDIC HARDWARE(GROSS EXAMINATION ONLY). GROSS DESCRIPTION: Specimen received in formalin labeled "removed implant left hip" are fourcomponents of a hip prosthesis. The acetabular cup is silver coloredmetal and measures 5.0 cm in diameter and 3.5 cm in depth. It has minimalattached yellow-pink trabecular bone and moderate yellow-angel togreen- black fibrous tissue. Also received is an annular portion of silvercolored metal measuring 3.8 cm in diameter and 0.6 cm in length. Inaddition there is a semi-spherical portion of silver colored metalmeasuring 3.0 cm in diameter. An additional white plastic cup shapedportion of material is received measuring 4.0 cm in length and up to 4.4cm in diameter. It is inscribed with [id number] and has an attachedadditional silver colored metal annular portion of material. In additiona 2.5 x 1.7 x 0.4 cm aggregate of hemorrhagic pink-red loose fragments ofbone are received. Sections are submitted for microscopic examination ofthe soft tissue and bone with bone submitted after decalcification. (2blocks) jglmls/mecProcessed at [facility], Histopathology, [address] [place] [address], [id number]. Reported at [facility] at [facility], [address] [place] [address], [phone].Reported: 06/10/2019Electronically Signed Out By Hilario Barrett MD [facility].This report may include immunohistochemical or in-situ hybridizationresults. Testing was developed and the performance characteristicsdetermined by [facility] as required by CLIA '88. The FDAhas determined that approval for specific use is not necessary forclinical use. The quality of Hematoxylin and Eosin stains and asapplicable, for all immunohistochemical and/or special stains, includingpositive and negative controls, were reviewed and considered appropriate.ICD codes: T84.203WALK4 codes: A: 43269H, 47905X Name Value Range Interpretation Code Description Data Tiffanie rce(s) Supporting Document(s) ID Date Data Source [id number] 06/08/2019 10:27:19 AM EST [facility] Name Value Range Interpretation Code Description Data Tiffanie rce(s) Supporting Document(s) ESR 3 mm/h (0-30) [facility] ID Date Data Source [id number] 06/08/2019 09:29:17 AM EST [facility] Name Value Range Interpretation Code Description Data Tiffanie rce(s) Supporting Document(s) TOTAL PROTEIN 6.5 g/dL (6.4-8.2) [facility] ALBUMIN 3.3 g/dL (3.5-4.6) L [facility] GLOBULIN 3.2 g/dL (2.7-4.3) [facility] ALB/GLOB RATIO 1.0 RATIO [facility] BILIRUBIN,TOTAL 0.4 mg/dL (0.0-1.0) [facility] PLEASE NOTE T otal bilirubin results may be falselyelevated in patients taking Eltrombopag. BILIRUBIN,CONJUGATED 0.2 mg/dL (0.0-0.3) [facility] BILIRUBIN,UNCONJ. 0.2 mg/dL (0.0-0.7) [facility] ALKALINE PHOSPHATASE 88 U/L (45-117) [facility] AST (SGOT) 82 U/L (11-39) H [facility] ALT (SGPT) 119 U/L (12-78) H [facility] ID Date Data Source [id number] 06/08/2019 09:09:27 AM EST [facility] Name Value Range Interpretation Code Description Data Tiffanie rce(s) Supporting Document(s) WBC 6.9 10*3/uL (4.1-11.0) [facility] [place] RBC 4.19 10*6/uL (4.00-5.40) [facility] HGB 12.8 g/dL (12.0-16.0) [facility] HCT 38.8 % (36.0-47.0) [facility] MCV 92.4 fL (80.0-95.0) [facility] MCH 30.6 pg (27.0-32.0) [facility] MCHC 33.1 g/dL (32.0-36.0) [facility] RDW 13.5 % (10.5-14.5) [facility] PLT 191 10*3/uL (150-450) [facility] MPV 9.7 fL (7.1-10.7) [facility] ID Date Data Source [id number] 06/09/2019 06:18:12 AM EST [facility] Name Value Range Interpretation Code Description Data Tiffanie rce(s) Supporting Document(s) POC GLUCOSE 104 mg/dL (70-99) H [facility] PERFORMED BY CLINICAL STAFF ID Date Data Source LIVER PROFILE 05/27/2019 12:00:00 AM EST eCW1 (Critical access hospital) Name Value Range Interpretation Code Description Data Tiffanie rce(s) Supporting Document(s) 149 7-37 AST/SGOT eCW1 ([facility]) 0.4 0.2-1.0 BILIRUBIN,TOTAL eCW1 ([facility]) 0.2 0.0-0.2 BILIRUBIN,DIRECT eCW1 (Critical access hospital) 283 12-78 ALT/SGPT eCW1 ([facility]) 125 45-117 ALKALINE PHOSPHATASE eCW1 ([facility]) 3.9 3.2-5.2 ALBUMIN eCW1 ([facility]) 1.05 1.00-1.93 ALBUMIN/GLOBULIN RATIO eCW1 ([facility]) 7.6 6.4-8.2 TOTAL PROTEIN eCW1 ([facility]) ID Date Data Source [id number] 05/17/2019 02:41:35 PM EST [facility] [place] Name Value Range Interpretation Code Description Data Tiffanie rce(s) Supporting Document(s) LATEX RESULT <0.35 kU/L (<0.35) [facility] [place] LATEX CLASS 0 [facility] [place] REFERENCE RANGES FOR SPECIFIC IgE TESTS: IgE (kU/L) INTERPRETATION < 0.35 CLASS 0 ABSENT/VERY LOW 0.35 to 0.69 CLASS 1 LOW 0.70 to 3.49 CLASS 2 MODERATE 3.50 to 17.49 CLASS 3 HIGH17.50 to 52.49 CLASS 4 VERY HIGH52.50 to 99.99 CLASS 5 VERY HIGH > 99.99 CLASS 6 VERY HIGH ID Date Data Source [id number] 05/16/2019 05:21:17 PM EST [facility] [place] SPEC EXP DATE 06/11/2019PATI ENT ABO/Rh O POSITIVEANTIBODY SCREEN NEGATIVETESTING SITE PERFORMED AT [address] [place] [address] COMMENT BLOOD TYPE CONFIRMED. Name Value Range Interpretation Code Description Data Tiffanie rce(s) Supporting Document(s) TYPE AND SCREEN [facility] [place] PATIENT ABO/Rh O POSITIVE ID Date Data Source [id number] 05/16/2019 03:39:11 PM EST [facility] [place] Name Value Range Interpretation Code Description Data Tiffanie rce(s) Supporting Document(s) SODIUM 134 mmol/L (136-145) L [facility] POTASSIUM 4.7 mmol/L (3.6-5.2) [facility] CHLORIDE 102 mmol/L (100-108) [facility] CO2 25 mmol/L (22-31) [facility] ANION GAP 7 mmol/L (7-16) [facility] UREA NITROGEN 24 mg/dL (7-24) [facility] CREATININE 0.76 mg/dL (0.60-1.00) [facility] BUN/CREAT RATIO 31.6 RATIO (10.0-20.0) H [facility] GLUCOSE 90 mg/dL (70-99) [facility] CALCIUM 9.7 mg/dL (8.4-10.2) [facility] GFR >60 ml/min/1.73m2 (>59) [facility] GFR ( AMER) >60 ml/min/1.73m2 (>59) [facility] GFR INTERPRETATION [facility] --NORMAL KIDNEY FUNCTION OR MILD DISEASE - GFR >OR= 60CHRONIC KIDNEY DISEASE - GFR 15 - 59RENAL FAILURE - GFR <15 Est. GFR calculation based on the MDRDstudy equation, which assumes a steadystate for creatinine. Est. GFR should notbe used for medication dosing. ID Date Data Source [id number] 05/16/2019 03:39:11 PM EST [facility] Name Value Range Interpretation Code Description Data Tiffanie e(s) Supporting Document(s) C REACTIVE PROTEIN @ 1.8 mg/dL (0.0-0.5) H [facility] AT [address] [address] ID Date Data Source [id number] 05/17/2019 01:21:49 PM EST [facility] SPECIMEN DESCRIPTION MIDSTREAM UR INE,CLEAN CATCHCULTURE RESULTS MIXED UROGENITAL SHERLY; PLEASE SUBMIT A NEW SPEC IMEN IF CLINICALLY INDICATED.REPORT STATUS FINAL 05/17/2019 Name Value Range Interpretation Code Description Data Tiffanie rce(s) Supporting Document(s) ID Date Data Source [id number] 05/17/2019 11:46:44 AM EST [facility] Name Value Range Interpretation Code Description Data Tiffanie rce(s) Supporting Document(s) SPECIMEN DESCRIPTION [facility] STAPH SCREEN RESULTS (ONEGSA) A [facility] COMMENT [facility] GENE TO DETECT STAPH AUREUS. (2) RT-P CR WAS PERFORMED FOR THE mecA AND SCCmec GENES TO DETECT METHICILLIN RESISTANCE IN STAPH AUREUS. ID Date Data Source [id number] 05/16/2019 03:19:14 PM EST [facility] Name Value Range Interpretation Code Description Data Tiffanie rce(s) Supporting Document(s) COLOR [facility] PERFORMED AT [address] [place] [address] APPEARANCE [facility] SPEC GRAV URINE 1.019 (1.003-1.030) [facility] PH URINE 6.0 (5.0-7.5) [facility] LEUK ESTERASE (NEG) [facility] NITRITE URINE (NEG) [facility] PROTEIN URINE (NEG) [facility] GLUCOSE URINE (NEG) [facility] KETONE URINE (NEG) [facility] UROBILINOGEN 0.2 mg/dL (0-1.0) [facility] [place] BILIRUBIN URINE (NEG) [facility] BLOOD/HGB URINE (NEG) [facility] ID Date Data Source [id number] 05/23/2019 08:27:05 AM EST [facility]: 1970Provider: Clari Giraldo: 05/16/2019 History of Present IllnessPatient presented office today for HP. She is scheduled for a left hip revision. 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 Results/DataXRays previously taken were reviewed today Side: Left Site: Hip, Pelvis Views: 3 Views, and Pelvis X-rays show a failing captured liner with no signs of osteolysis or loosening of the acet abular and femoral components. Assessment Status post revision of total hip replacement (V43.64) (Z96.649)Patient is status post left hip revision with a failing captured liner. Plan You need to quit smoking.; Status:Complete; Done: [id number] Last Updated By:Nat Awan; 05/16/2019 11:24:58 AM;Ordered; For:SocHx: Current smoker; Ordered By:Vita Giraldo; Advance Directive (SOS) Follow Up Follow-up Status: Complete Done: [id number] Ordered;For: Health Maintenance; Ordered By: Vita Giraldo Performed: Due: [id number]; Last Updated By: Nat Awan; 05/16/2019 11:31:51 AM Plan, Assessment and Recommendation(s) Schedule appointment: After surgery. X-Rays ARE required at next visit. Patient will stop aspirin products 7 days prior to surgery. Further medication plan per anesthesia. Patient scheduled for left hip revision. The risks consent procedure works plain to the patient today in the office. Patient plans to go home postoperatively. Work / School NoteThe percentage of temporary impairment is 0%. The patient is not working at this time. Belen Kraft is on total disability beginning on the date of surgery. This document was dictated and electronically signed using [employer] software. A reasonable attempt at proof reading has been made to minimize errors. Please call with any questions. Signatures Electronically signed by : Vita Singh i, PA-C; May 16 2019 12:12PM EST (Author) Electronically signed by : Brett Winn M.D.; May 23 2019 8:27AM EST (Author) Name Value Range Interpretation Code Description Data Tiffanie rce(s) Supporting Document(s) ID Date Data Source [id number] 04/27/2019 10:18:44 AM EST [facility]: Belen KraftDOB: 1970Provider: Jennifer Barton: 04/27/2019 Plan You need to quit smoking.; Status:Complete; Done: 27Apr2019 Last Updated By:Erica Elise; 04/27/2019 10:03:10 AM;Ordered; For:Health Maintenance, PMH: History of chronic obstructive lung disease; Ordered By:Rony Barton; Chief complaint patient states leg painPleasant female issue leg pain. Previous L3-S1 spinal fusion. Reports leg pain the left lateral leg. It is severe, worse activity. Better with rest. She uses a cane. She reports dysfunction in her hip and states that her pain became worse recently when the hip started hurting her more significantly. She thinks some of her pain may be from the hip. She is having surgery on her hip in May. Patient has had injections before the lumbar spine without any significant improvementThe patient is well-developed, well-nourished and in no acute distress. The patient appears their stated age and is dressed appropriately for climate. The pupils are equal, round and reactive to accommodation. Head is normocephalic and atraumatic. Respirations are even and unlabored. On neurologic examination, the patient is alert and oriented to time, place and person. Memory is intact to recall testing. Affect is not blunted. Speech is appropriate. The skin appears normal and is negative for ulcers or rashes. Lymphatic exam: Neck within normal limits.Examination of the lumbar spine reveals full flexion, extension, lateral bending bilaterally, and rotation bilaterally. The patient demonstrates an antalgic gait. There is no posterior tenderness in the lower back. Motor strength is 5 out of 5 from L2-S1 and sensation is intact from L2-S1 bilaterally. Reflexes are 1+ at the patellar tendon and at the Achilles bilaterally. Straight leg raise is negative bilaterally. Contralateral straight leg raise is negative. There is no hip pain with internal or external rotation. Brisk distal capillary refill bilaterallyMRI lumbar spine reviewed. The patient has screws at L3, L4, L5. Spinal canal is patent. There is moderate stenosis at L2-L3 there is moderate bilateral foraminal stenosis. This is progressive compared to previous MRI.AssessmentLumbar radiculopathyWe discussed the results the MRI. She does have stenosis L2-L3 but her leg pain is not consistent with this level. I do not think surgery would provide much improvement. She had a surgery fairly extensively from L3-5. She may wish to talk to Dr. Rendon about potential options. I do not recommend any specific surgeryplan:1. Medication: No medications prescribed.2. Imaging: No further imaging at this time3. Injection: Not indicated4. Activity:as tolerated. 5. Referral: None6. Surgical management deferred at this point followup as needed if symptoms progress Signatures Electronically signed by : Rony Barton M.D.; Apr 27 2019 10:18AM EST (Author) Name Value Range Interpretation Code Description Data Tiffanie rce(s) Supporting Document(s) ID Date Data Source [id number] 04/15/2019 07:39:38 AM EST [facility]: 1970Provider: Jian Winn: 04/12/2019 Assessment Joint pain, hip (719.45) (M25.559) left hip Plan Start: Meloxicam 15 MG Oral Tablet; TAKE 1 TABLET DAILY WITH FOOD Rx By: Brett Winn; Dispense: 0 Days ; #:30 Tablet; Refill: 1;For: Pain of left hip; RONEN = N; Verified Transmission to [facility]; Last Updated By: Dennis Lepe; 04/12/2019 11:49:38 AM Pre Op Anemia w/Diabetes (CBCD, DANIEL, HA1C, Total Iron=FE,UIBC,TIBC,IRON %SATURATION, Albumin); Status:Active; Requested for:[id number]; Perform:Outside Facility; Due:22Apr2019; Last Updated By:Rosy Rico; 04/12/2019 11:54:50 AM;Ordered; For:PMH: Borderline diabetes, Joint pain, hip, Persistent pain in prosthetic joint, Preoperative testing, Status post revision of total hip replacement; Ordered By:Brett Winn;Fax Results To ([facility]) : Rosy Rico Fax: Advance Directive (SOS) Follow Up Follow-up Status: Complete Done: [id number] Ordered;For: Hip pain, History of total hip arthroplasty, left; Ordered By: Brett Winn Performed: Due: 26Apr2019; Last Updated By: Maris Vargas; 04/12/2019 12:04:45 PMASSESSMENT: Failing left captured hip.Patient is having catching and giving out from the left hip. She feels like it is unstable again. I reviewed x-rays of the pelvis and left hip and do think the captured mechanism is failing. She has lost 20 pounds but is still overweight and she is going to try and keep losing more. She had an MRI of the lumbar spine recently, she has had a fusion in the past, this does show some higher disease which could be accounting for some of her thigh pain or tingling. I want her seen by the spine group but we will also get her on the schedule for revision of the left hip replacement probably to a mobile bearing hip with shoring up of the posterior tissues maybe with an Achilles tendon allograft.The patient was told about the risks, the benefits, the lack of guarantees, how each surgery is riskier, but she says she cannot live with the pain and wants to proceed regardless. Signatures Electronically signed by : Letty Bryant, ; Apr 14 2019 2:29PM EST Electronically signed by : Brett Winn M.D.; Apr 15 2019 7:39AM EST (Author) Name Value Range Interpretation Code Description Data Tiffanie rce(s) Supporting Document(s) ID Date Data Source [id number] 04/12/2019 11:18:00 AM EST [facility] PATIENT MR#: [id number] NAME: BELEN WU RDATE OF : 1970REFERRING PHYSICIAN: Brett Miller DATE: 04/12/2019MRI lumbar spine with and without intravenous contrastHistory: Lumbar fusion, low back pain, left leg pain, burning and numbnessTechnique: Multiplanar, multisequential imaging of the lumbar spine wasperformed before and after the administration of intravenous contrast. Thepatient was administered 20 cc Dotarem intravenously.Comparison: Lumbar spine radiographs March 24, 2019. Lumbar spine MRI 2016.Findings:Vertebral body height is preserved. There is very minimal grade 1retrolisthesis at L1-L2 and L2-L3. Minimal grade 1 anterolisthesis is also seenat L3-L4.Mild dextroconvex curvature of the lumbar spine is seen.The patient is noted to be status post transpedicular screw and paraspinal rodfixation involving L3, L4, and L5. Associated metallic susceptibility artifactis seen in this location.The conus is identified and is unremarkable.No suspicious intraspinal enhancement is seen.At T12-L1, a very mild broad-based disc protrusion and facet arthropathy isseen. There is mild bilateral foraminal narrowing. No significant centralspinal canal stenosis is seen.At L1-L2, a very mild broad-based disc protrusion is seen with a small annularfissure. Mild central spinal canal stenosis and mild bilateral foraminalnarrowing is seen.At L3-L4, a very mild broad-based disc protrusion is seen with an annularfissure. Ligamentum flavum hypertrophy and facet arthropathy is seen. There ismoderate central spinal canal stenosis and mild to moderate bilateral foraminalnarrowing. These findings appear more pronounced compared to 09/09/2016.At L3-L4, right hemilaminotomy changes are noted. A very mild broad-based discprotrusion and facet arthropathy is seen. There is mild to moderate bilateralforaminal narrowing, right greater than left. No significant central spinalcanal stenosis is seen.At L4-L5, a very mild posterior osteophyte and facet arthropathy is seen. Thereis mild to moderate bilateral foraminal narrowing. No significant centralspinal canal stenosis is seen.At L5-S1, a very mild broad-based disc protrusion and facet arthropathy is seen.There is mild bilateral foraminal narrowing. No significant central spinalcanal stenosis is seen.Impression:Prior transpedicular screw and paraspinal glenis fixation extending from L3-L5 withexpected chronic postsurgical changes.Moderate central spinal canal stenosis and mild to moderate bilateral foraminalnarrowing at L2-L3, which appears slightly progressed compared to 09/09/2016. Read by: Karli Damian aimTranscribed by: Karli SzymanskiTranscribed Date: 04/12/2019 11:18:18 AMElectronically signed by: Karli Roman signed: 04/12/2019 11:18:33 AM Name Value Range Interpretation Code Description Data Tiffanie rce(s) Supporting Document(s) Procedure Social History Code Duration Value Status Description Data Source(s ) Smoking 05/07/2020 12:00:00 AM EST Current Smoker completed Curre nt Smoker eCW1 ([facility]) Smoking 05/07/2020 12:00:00 AM EST Current Smoker completed Curre nt Smoker eCW1 ([facility]) Smoking 05/07/2020 12:00:00 AM EST Current Smoker completed Curre nt Smoker eCW1 ([facility]) Smoking 09/19/2019 12:00:00 AM EDT Current Smoker completed Curre nt Smoker eCW1 ([facility]) Smoking 09/19/2019 12:00:00 AM EDT Current Smoker completed Curre nt Smoker eCW1 ([facility]) Smoking 09/19/2019 12:00:00 AM EDT Current Smoker completed Curre nt Smoker eCW1 ([facility]) Smoking 09/19/2019 12:00:00 AM EDT Current Smoker completed Curre nt Smoker eCW1 ([facility]) Smoking 09/19/2019 12:00:00 AM EDT Current Smoker completed Curre nt Smoker eCW1 ([facility]) Smoking 09/19/2019 12:00:00 AM EDT Current Smoker completed Curre nt Smoker eCW1 ([facility]) Vital Signs ID Date Data Source UNK Name Value Range Interpretation Code Description Data Source(s) Diastolic blood pressure 69 mm[Hg] 69 mm[Hg] eCW1 ([facility]) Systolic blood pressure 113 mm[Hg] 113 mm[Hg] e CW1 ([facility]) Body temperature 97.9 [degF] 97.9 [degF] eCW1 ( [facility]) Respiratory rate 18 /min 18 /min eCW1 ([facility]) Heart rate 82 /min 82 /min eCW1 ([facility]) Body mass index (BMI) [Ratio] 38.19 kg/m2 38.19 kg/m2 W1 ([facility]) Body height 64.5 [in_i] 64.5 [in_i] eCW1 ([facility]) Body weight 226 [lb_av] 226 [lb_av] eCW1 ([facility]) Diastolic blood pressure 65 mm[Hg] 65 mm[Hg] eCW1 ([facility]) Systolic blood pressure 116 mm[Hg] 116 mm[Hg] e CW1 ([facility]) Body temperature 98.7 [degF] 98.7 [degF] eCW1 ( [facility]) Respiratory rate 18 /min 18 /min eCW1 ([facility]) Heart rate 78 /min 78 /min eCW1 ([facility]) Body mass index (BMI) [Ratio] 37.18 kg/m2 37.18 kg/m2 W1 ([facility]) Body height 64.5 [in_i] 64.5 [in_i] eCW1 ([facility]) Body weight 220 [lb_av] 220 [lb_av] eCW1 ([facility]) Body height 162.1536 cm Normal (applies to non-numeric res ults) 162.1536 cm [facility] Body temperature 36.9 [place] Normal (applies to non-numeric results) 36.9 [place] [facility] Respiratory rate 20 min Normal (applies to non-numeric results) 20 min [facility] Heart rate 76 min Normal (applies to non-numeric resul ts) 76 min [facility] Diastolic blood pressure 74 mm[Hg] Normal (applies to non-numeric results) 74 mm[Hg] [facility] Systolic blood pressure 112 mm[Hg] Normal (applies t o non-numeric results) 112 mm[Hg] [facility] Deprecated Oxygen saturation in Capillary blood by Oximetry 95 % Normal (applies to non-numeric results) 95 % [facility] Body weight Measured 104.2 kg Normal (applies to n on-numeric results) 104.2 kg [facility] Body mass index (BMI) [Ratio] 39.43 kg/m2 No rmal (applies to non-numeric results) 39.43 kg/m2 [facility] Diastolic blood pressure 80 mm[Hg] 80 mm[Hg] eCW1 ([facility]) Systolic blood pressure 120 mm[Hg] 120 mm[Hg] e CW1 ([facility]) Body temperature 98.3 [degF] 98.3 [degF] eCW1 ( [facility]) Respiratory rate 16 /min 16 /min eCW1 ([facility]) Heart rate 78 /min 78 /min eCW1 ([facility]) Body mass index (BMI) [Ratio] 37.85 kg/m2 37.85 kg/m2 eCW1 ([facility]) Body height 64.5 [in_us] 64.5 [in_us] eCW1 ([facility]) Body weight Measured 224 [lb_av] 224 [lb_av] eC W1 ([facility]) Diastolic blood pressure 82 mm[Hg] 82 mm[Hg] eCW1 ([facility]) Systolic blood pressure 127 mm[Hg] 127 mm[Hg] e CW1 ([facility]) Body temperature 97.8 [degF] 97.8 [degF] eCW1 ( [facility]) Respiratory rate 18 /min 18 /min eCW1 ([facility]) Heart rate 102 /min 102 /min eCW1 ([facility]) Body mass index (BMI) [Ratio] 37.01 kg/m2 37.01 kg/m2 eCW1 ([facility]) Body height 64.5 [in_us] 64.5 [in_us] eCW1 ([facility]) Body weight Measured 219 [lb_av] 219 [lb_av] eC W1 ([facility]) Patient Treatment Plan of Care Planned Activity Planned Date Details Description Data Source (s) Fluticasone Propionate 50 MCG/ACT 05/07/2020 12:00:00 AM EST eCW1 ([facility]) Azelastine HCl 0.1 % 05/07/2020 12:00:00 AM EST eCW1 ([facility]) Fluticasone Propionate 50 MCG/ACT 05/07/2020 12:00:00 AM EST eCW1 ([facility]) Fluticasone Propionate 50 MCG/ACT 05/07/2020 12:00:00 AM EST eCW1 ([facility]) Azelastine HCl 0.1 % 05/07/2020 12:00:00 AM EST eCW1 ([facility]) Azelastine HCl 0.1 % 05/07/2020 12:00:00 AM EST eCW1 ([facility]) Pravastatin Sodium 40 MG Oral Tablet 09/19/2019 12:00:00 AM EDT eCW1 ([facility]) Pravastatin Sodium 40 MG Oral Tablet 09/19/2019 12:00:00 AM EDT eCW1 ([facility]) Pravastatin Sodium 40 MG Oral Tablet 09/19/2019 12:00:00 AM EDT eCW1 ([facility]) Pravastatin Sodium 40 MG Oral Tablet 09/19/2019 12:00:00 AM EDT eCW1 ([facility]) Pravastatin Sodium 40 MG Oral Tablet 09/19/2019 12:00:00 AM EDT eCW1 ([facility]) Levothyroxine Sodium 0.112 MG Oral Tablet 09/19/2019 12:00:00 AM ED T eCW1 ([facility]) Pravastatin Sodium 40 MG Oral Tablet 09/19/2019 12:00:00 AM EDT eCW1 ([facility]) Fenofibrate 145 MG Oral Tablet 03/28/2019 12:00:00 AM EST eCW1 ([facility]) Fenofibrate 145 MG Oral Tablet 03/28/2019 12:00:00 AM EST eCW1 ([facility]) Fenofibrate 145 MG Oral Tablet 03/28/2019 12:00:00 AM EST eCW1 ([facility]) Fenofibrate 145 MG Oral Tablet 03/28/2019 12:00:00 AM EST eCW1 ([facility]) Fenofibrate 145 MG Oral Tablet 03/28/2019 12:00:00 AM EST eCW1 ([facility]) Fenofibrate 145 MG Oral Tablet 03/28/2019 12:00:00 AM EST eCW1 ([facility])
[2020-05-24] MEDS ORDERED: LIDOCAINE 2% 100MG/5ML SDV (FOR ANES.) As Ordered ONE (12:58)
[2020-05-24] MEDS ORDERED: propofoL 500 MG/50 ML VIAL As Ordered ONE (12:58)
--- NOTE | 2020-05-24 13:19 | ROOR ---
Patient Name: Belen Haynes Procedure Date: 05/24/2020 12:02 PM Date of : 1970 Age: 50 Room: [facility] Gender: Female Note Status: Finalized Procedure: Upper GI endoscopy Indications: Heartburn Providers: Alfonso Thurman MD Referring MD: She Jaquez NP Requesting Provider: Medicines: Monitored Anesthesia Care Complications: No immediate complications. Procedure: Pre-Anesthesia Assessment: - Prior to the procedure, a History and Physical was performed, and patient medications and allergies were reviewed. The patient is competent. The risks and benefits of the procedure and the sedation options and risks were discussed with the patient. All questions were answered and informed consent was obtained. Patient identification and proposed procedure were verified by the physician, the nurse and the kerfer machine operator in the procedure room. Mental Status Examination: alert and oriented. Prophylactic Antibiotics: The patient does not require prophylactic antibiotics. Prior Anticoagulants: The patient has taken no previous anticoagulant or antiplatelet agents. ASA Grade Assessment: III - A patient with severe systemic disease. After reviewing the risks and benefits, the patient was deemed in satisfactory condition to undergo the procedure. The anesthesia plan was to use monitored anesthesia care (MAC). Immediately prior to administration of medications, the patient was re-assessed for adequacy to receive sedatives. The heart rate, respiratory rate, oxygen saturations, blood pressure, adequacy of pulmonary ventilation, and response to care were monitored throughout the procedure. The physical status of the patient was re-assessed after the procedure. The Endoscope was introduced through the mouth, and advanced to the second part of duodenum. The upper GI endoscopy was accomplished without difficulty. The patient tolerated the procedure well. Findings: The examined esophagus was normal. Diffuse mild inflammation characterized by erythema was found in the gastric antrum. Biopsies were taken with a cold forceps for histology. Estimated blood loss was minimal. The exam of the stomach was otherwise normal. The first portion of the duodenum and second portion of the duodenum were normal. Impression: - Normal esophagus. - Mucosal changes suspicious for gastritis. Biopsied. - Normal first portion of the duodenum and second portion of the duodenum. Recommendation: - Discharge patient to home. - Resume previous diet. - Continue present medications. - Await pathology results. - Return to endoscopist in 2 weeks. Procedure Code(s): --- Professional --- 35424, Esophagogastroduodenoscopy, flexible, transoral; with biopsy, single or multiple Diagnosis Code(s): --- Professional --- K31.89, Other diseases of stomach and duodenum R12, Heartburn CPT copyright 2019 [employer]. All rights reserved. The codes documented in this report are preliminary and upon hand sample maker review may be revised to meet current compliance requirements. Alfonso Thurman MD Alfonso Thurman MD 05/24/2020 1:18:52 PM Electronically signed by Alfonso Thurman MD Number of Addenda: 0 Note Initiated On: 05/24/2020 12:02 PM Estimated Blood Loss: Estimated blood loss was minimal.
[2020-05-24] MEDS ORDERED: propofoL 200 MG/20 ML VIAL As Ordered ONE (13:30)
--- NOTE | 2020-05-24 13:33 | ROOR ---
Patient Name: Belen Haynes Procedure Date: 05/24/2020 12:43 PM Date of : 1970 Age: 50 Room: [facility] Gender: Female Note Status: Finalized Procedure: Colonoscopy Indications: Screening for colorectal malignant neoplasm, This is the patient's first colonoscopy Providers: Alfonso Thurman MD Referring MD: She Jaquez NP Requesting Provider: Medicines: Monitored Anesthesia Care Complications: No immediate complications. Procedure: Pre-Anesthesia Assessment: - Prior to the procedure, a History and Physical was performed, and patient medications and allergies were reviewed. The patient is competent. The risks and benefits of the procedure and the sedation options and risks were discussed with the patient. All questions were answered and informed consent was obtained. Patient identification and proposed procedure were verified by the physician, the nurse and the stain sprayer in the procedure room. Mental Status Examination: alert and oriented. Prophylactic Antibiotics: The patient does not require prophylactic antibiotics. Prior Anticoagulants: The patient has taken no previous anticoagulant or antiplatelet agents. ASA Grade Assessment: III - A patient with severe systemic disease. After reviewing the risks and benefits, the patient was deemed in satisfactory condition to undergo the procedure. The anesthesia plan was to use monitored anesthesia care (MAC). Immediately prior to administration of medications, the patient was re-assessed for adequacy to receive sedatives. The heart rate, respiratory rate, oxygen saturations, blood pressure, adequacy of pulmonary ventilation, and response to care were monitored throughout the procedure. The physical status of the patient was re-assessed after the procedure. The Colonoscope was introduced through the anus and advanced to the cecum, identified by appendiceal orifice and ileocecal valve. The colonoscopy was performed without difficulty. The patient tolerated the procedure well. The quality of the bowel preparation was good. Findings: The perianal and digital rectal examinations were normal. A few medium-mouthed diverticula were found in the ascending colon. A 5 mm polyp was found in the mid sigmoid colon. The polyp was sessile. The polyp was removed with a hot snare. Resection and retrieval were complete. Estimated blood loss: none. A 6 mm polyp was found in the distal sigmoid colon. The polyp was semi-pedunculated. The polyp was removed with a hot snare. Resection and retrieval were complete. Estimated blood loss: none. Impression: - Diverticulosis in the ascending colon. - One 5 mm polyp in the mid sigmoid colon, removed with a hot snare. Resected and retrieved. - One 6 mm polyp in the distal sigmoid colon, removed with a hot snare. Resected and retrieved. Recommendation: - Discharge patient to home. - Resume previous diet. - Continue present medications. - Await pathology results. - Return to endoscopist in 2 weeks. Procedure Code(s): --- Professional --- 35425, Colonoscopy, flexible; with removal of tumor(s), polyp(s), or other lesion(s) by snare technique Diagnosis Code(s): --- Professional --- Z12.11, Encounter for screening for malignant neoplasm of colon K63.5, Polyp of colon K57.30, Diverticulosis of large intestine without perforation or abscess without bleeding CPT copyright 2019 [employer]. All rights reserved. The codes documented in this report are preliminary and upon iron bender review may be revised to meet current compliance requirements. Alfonso Thurman MD Alfonso Thurman MD 05/24/2020 1:32:55 PM Electronically signed by Alfonso Thurman MD Number of Addenda: 0 Note Initiated On: 05/24/2020 12:43 PM Estimated Blood Loss: Estimated blood loss: none.
[2020-05-24 13:50] VITALS: BP 138/83
== END 2020-05-24 13:52 | disposition home or self-care (01) ==
LOC: M OPP 11:01
PROVIDERS: ATTEND Surgery
DX: Z12.11 Encounter for screening for malignant neoplasm of colon (principal); R12 Heartburn; D12.5 Benign neoplasm of sigmoid colon; K57.30 Diverticulosis of large intestine without perforation or abscess without bleeding; D13.1 Benign neoplasm of stomach; K31.89 Other diseases of stomach and duodenum; E78.5 Hyperlipidemia, unspecified; E03.9 Hypothyroidism, unspecified; M19.90 Unspecified osteoarthritis, unspecified site; J44.9 Chronic obstructive pulmonary disease, unspecified; F17.210 Nicotine dependence, cigarettes, uncomplicated; Z88.0 Allergy status to penicillin; Z91.040 Latex allergy status; Z79.51 Long term (current) use of inhaled steroids; Z79.899 Other long term (current) drug therapy

== ENCOUNTER → 2020-08-20 | Outpatient (REF) | payer OTHER ==
[~2020-08-20] MED LIST changes: -NS 1,000 ML IV ONE
== END ==
LOC: M LAB REF 18:55
PROVIDERS: ATTEND Otolaryngology
DX: D37.09 Neoplasm of uncertain behavior of other specified sites of the oral cavity (principal)

== ENCOUNTER → 2020-12-19 | Outpatient (REF) | payer OTHER ==
[2020-12-19 12:17] LABS: BASO % 0.5 % (0.0-1.0); EOS # 0.3 10^3/uL (0.0-0.5); EOS % 4.6 % (0.0-3.0); HEMATOCRIT 41.8 % (36.0-47.0); HEMOGLOBIN 13.5 g/dl (12.0-15.5); LYMPH # 2.4 10^3/uL (1.5-5.0); LYMPH % 33.2 % (24.0-44.0); MEAN CORPUSCULAR HEMOGLOBIN 31.2 pg (27.0-33.0); MEAN CORPUSCULAR HGB CONC 32.3 g/dl (32.0-36.5); MEAN CORPUSCULAR VOLUME 96.5 fl (80.0-96.0); MONO # 0.6 10^3/uL (0.0-0.8); MONO % 7.5 % (2.0-8.0); NEUTROPHILS % 53.9 % (36.0-66.0); PLATELET COUNT, AUTOMATED 199 10^3/uL (150-450); RED BLOOD COUNT 4.33 10^6/uL (4.00-5.40); WHITE BLOOD COUNT 7.4 10^3/uL (4.0-10.0)
[2020-12-19 12:48] LABS: ALBUMIN 3.4 GM/DL (3.2-5.2); ALT/SGPT 52 U/L (12-78); BILIRUBIN,TOTAL 0.2 MG/DL (0.2-1.0); BLOOD UREA NITROGEN 19 MG/DL (7-18); CALCIUM LEVEL 8.6 MG/DL (8.5-10.1); CARBON DIOXIDE LEVEL 29 MEQ/L (21-32); CHLORIDE LEVEL 111 MEQ/L (98-107); CHOLESTEROL LEVEL 197 MG/DL (<200); CHOLESTEROL RISK RATIO 5.628 (<5); CREATININE FOR GFR 0.76 MG/DL (0.55-1.30); FREE T4 1.33 NG/DL (0.76-1.46); GLOMERULAR FILTRATION RATE > 60.0 (>51); GLUCOSE, FASTING 137 MG/DL (70-100); HDL CHOLESTEROL 35 MG/DL (>40); LDL CHOLESTEROL 111 MG/DL (<100); NON-HDL-C 162 MG/DL; POTASSIUM SERUM 4.2 MEQ/L (3.5-5.1); SODIUM LEVEL 143 MEQ/L (136-145); TOTAL PROTEIN 6.5 GM/DL (6.4-8.2); TRIGLYCERIDES LEVEL 256 MG/DL (<150)
[2020-12-19 13:57] LABS: HEMOGLOBIN A1c 5.5 %
== END ==
LOC: M SFHCCLAY 08:09
PROVIDERS: ATTEND Nurse Practitioner Family
DX: E78.2 Mixed hyperlipidemia (principal); J45.991 Cough variant asthma; E03.9 Hypothyroidism, unspecified; F17.200 Nicotine dependence, unspecified, uncomplicated; M51.36 Other intervertebral disc degeneration, lumbar region; R73.01 Impaired fasting glucose; R94.5 Abnormal results of liver function studies; J32.1 Chronic frontal sinusitis
CPT/HCPCS: 80053; 80061; 83036; 84439; 84443; 85025; 90732; G0009; G0463

== ENCOUNTER 2021-01-10 16:41 | Inpatient (IN) | payer OTHER ==
[~2021-01-10] VITALS: Ht 162.6 cm; Wt 105.4 kg
[~2021-01-10 16:41] MED LIST changes: -FLUT15.819; +FLUT15.819 NARES
[2021-01-10] MEDS ORDERED: ACETAMINOPHEN TAB 650MG DOSE (2X325MG) PO ONE (17:45)
[2021-01-10] MEDS ORDERED: NS 1,000 ML IV ONE (17:45)
--- NOTE | 2021-01-10 17:56 | REP ---
INDICATION: Coronavirus workup. COMPARISON: 01/26/2014 the latest prior TECHNIQUE: Portable FINDINGS: The technique utilized in obtaining the radiograph has magnified the cardiac silhouette and accentuated the interstitial markings. The superior mediastinal structures are midline. The cardiac silhouette is unremarkable in size, shape, and position. The diaphragmatic surfaces of the lungs are regular, and the costophrenic angles are clear. The pulmonary collier are clear. The imaged osseous structures are intact. IMPRESSION: There is no acute cardiopulmonary disease. <Electronically signed by Lavon Cui > 01/10/21 [id number]
--- NOTE | 2021-01-10 18:36 | REP ---
INDICATION: cellulitis ?abscess in suprapubic area. COMPARISON: None. TECHNIQUE: Real-time sonographic evaluation over an area of erythema the suprapubic region FINDINGS: There is no evidence of an abscess IMPRESSION: As above <Electronically signed by Lavon Cui > 01/10/21 [id number]
[2021-01-10 18:40] LABS: BASO % 0.2 % (0.0-1.0); EOS % 0.1 % (0.0-3.0); HEMATOCRIT 45.5 % (36.0-47.0); HEMOGLOBIN 15.3 g/dl (12.0-15.5); LYMPH # 2.6 10^3/uL (1.5-5.0); LYMPH % 20.1 % (24.0-44.0); MEAN CORPUSCULAR HEMOGLOBIN 30.9 pg (27.0-33.0); MEAN CORPUSCULAR HGB CONC 33.6 g/dl (32.0-36.5); MEAN CORPUSCULAR VOLUME 91.9 fl (80.0-96.0); MONO # 1.3 10^3/uL (0.0-0.8); MONO % 10.1 % (2.0-8.0); NEUTROPHILS # 9.1 10^3/uL (1.5-8.5); PLATELET COUNT, AUTOMATED 189 10^3/uL (150-450); RED BLOOD COUNT 4.95 10^6/uL (4.00-5.40); WHITE BLOOD COUNT 13.1 10^3/uL (4.0-10.0)
[2021-01-10 19:12] LABS: ALBUMIN 3.5 GM/DL (3.2-5.2); ALT/SGPT 83 U/L (12-78); BILIRUBIN,TOTAL 0.5 MG/DL (0.2-1.0); BLOOD UREA NITROGEN 23 MG/DL (7-18); CALCIUM LEVEL 8.9 MG/DL (8.5-10.1); CARBON DIOXIDE LEVEL 26 MEQ/L (21-32); CHLORIDE LEVEL 105 MEQ/L (98-107); CK-MB VALUE MASS < 1.0 NG/ML (<3.6); CPK CREATINE PHOSPHOKINASE 71 U/L (26-192); GLOMERULAR FILTRATION RATE > 60.0 (>51); GLUCOSE, FASTING 98 MG/DL (70-100); LDH LACTATE DEHYDROGENASE 198 U/L (84-246); MB/CK RELATIVE INDEX 1.41 (< OR =4); POTASSIUM SERUM 3.9 MEQ/L (3.5-5.1); SODIUM LEVEL 137 MEQ/L (136-145); TOTAL PROTEIN 7.8 GM/DL (6.4-8.2); TROPONIN I < 0.02 NG/ML (< 0.10)
[2021-01-10] MEDS ORDERED: MELO15TA28 PO (19:15)
[2021-01-10] MEDS ORDERED: PROAAER10 INH (19:15)
[2021-01-10] MEDS ORDERED: HOME MED LIST COMPLETE! XX SCH (19:20)
[2021-01-11] MEDS ORDERED: MAALOX 30 ML SUSP *UDC PO PRN (00:40)
[2021-01-11] MEDS ORDERED: ALBUTEROL 90 MCG/ACT 8GM HFA INHALER INH PRN (00:40)
[2021-01-11] MEDS ORDERED: VANCOMYCIN HCL 1,000 MG, VIAL MATE ADAPTER 1 EACH in NS 250 ML IV SCH (00:40)
--- NOTE | 2021-01-11 01:09 | HPEPDOC ---
[facility] Medical History & Physical Date of Admission Jan 11, 2021 Date of Service: Jan 11, 2021 History and Physical CHIEF COMPLAINT: Chills, cough, suprapubic skin redness and pain HISTORY OF PRESENT ILLNESS: 51-year-old female with a past medical history of COPD (not O2 dependent), GERD, hypercholesterolemia, hypothyroidism, seasonal allergies, presented to the ER with a 5-day history of subjective fevers chills cough generalized malaise as well as severe pain and redness of suprapubic skin. Patient denies any chest pain palpitation shortness of breath nausea vomiting or diarrhea. Patient states that her skin has been turning red very painful and tender to touch even with fabric rubbing along the suprapubic area. Patient is febrile Tmax 103F. WBC 13.1. Pelvic ultrasound of area of erythema over suprapubic region did not reveal an abscess. Found to be covid-19 positive. Saturating at 96% on RA. Patient will be admitted to hospitalist service for management of sepsis 2/2 cellulitis. PAST MEDICAL HISTORY: COPD GERD Seasonal allergies Hypothyroidism Hypercholesterolemia PAST SURGICAL HISTORY: Hysterectomy Back surgeries Bilateral hip replaced Hysterectomy, tubal ligation Tonsillectomy SOCIAL HISTORY: Active smoker Denies alcohol use Denies illicit drug FAMILY HISTORY: Reviewed with patient no pertinent family history was provided ALLERGIES: Please see below. REVIEW OF SYSTEMS: 10 point ROS was conducted, relevant findings were noted in the HPI. HOME MEDICATIONS: Please see below. PHYSICAL EXAMINATION: VITAL SIGNS: please see below General: NAD, comfortable HEENT: PERRLA, EOMI, sclerae clear Neck: supple, normal ROM, no JVD Respiratory: Fair inspiratory effort, mild rales, no wheezing no crackles. CVS: RRR, normal S1, S2, no murmurs Abdo: soft, no masses, no hepatosplenomegaly, BS+, no rebound tenderness Extremities: no edema, pulses 2+ MSK: no joint deformities, normal ROM Neuro: no focal neuro deficits, moving all 4 extremities, CN2-12 intact. Strength 5/5 in all 4 extremities. No nystagmus. Psych: calm, cooperative, AAO x 3 LABORATORY DATA: See below. IMAGING: Pelvic ultrasound (01/10/21): FINDINGS: There is no evidence of an abscess CXR (01/10/21): FINDINGS: The technique utilized in obtaining the radiograph has magnified the cardiac silhouette and accentuated the interstitial markings. The superior mediastinal structures are midline. The cardiac silhouette is unremarkable in size, shape, and position. The diaphragmatic surfaces of the lungs are regular, and the costophrenic angles are clear. The pulmonary collier are clear. The imaged osseous structures are intact. MICROBIOLOGY: Please see below. ASSESSMENT: 51-year-old female with a past medical history of COPD (not O2 dependent), GERD, hypercholesterolemia, hypothyroidism, seasonal allergies, presented to ER with fever and leukocytosis, c/o cough, subjective fevers/chills and severe pain and erythema of suprapubic skin. Diagnosed with covid-19. Admitted to hospitalist service for management of sepsis due to cellulitis. . PLAN: Sepsis likely 2/2 cellulitis: WBC 13.1. Tmax 103F. Tachycardic to 120. LA 1.3. S/p 1L NS bolus. Start vancomycin and ceftriaxone. Obtain blood cultures. Acetaminophen for fever. IVF. Covid-19 infection: onset symptoms 5 days. Saturation 96% on RA. Does not qualify for remdesivir or dexamethasone at this time. Combivent prn. Continuous pulse ox monitoring. Trend inflammatory markers. COPD: not O2 dependent. Combivent prn. Replace home inhaler with symbicort. DVT ppx: heparin 5000 units qc. Vital Signs Vital Signs Date Time Temp Pulse Resp B/P (MAP) Pulse Ox O2 Delivery O2 Flow Rate FiO2 01/10/21 23:30 90 18 112/55 (74) 01/10/21 23:00 96 Room Air 01/10/21 18:10 103.0 Laboratory Data Labs 24H Laboratory Tests 2 01/10/21 17:32: Immature Granulocyte % (Auto) 0.5, Neutrophils (%) (Auto) 69.0H, Lymphocytes (%) (Auto) 20.1L, Monocytes (%) (Auto) 10.1H, Eosinophils (%) (Auto) 0.1, Basophils (%) (Auto) 0.2, Neutrophils # (Auto) 9.1H, Lymphocytes # (Auto) 2.6, Monocytes # (Auto) 1.3H, Eosinophils # (Auto) 0.0, Basophils # (Auto) 0.0, Nucleated Red Blood Cells % (auto) 0.0, D-Dimer, Quantitative 1446.46H, Anion Gap 6L, Glomerular Filtration Rate > 60.0, Lactic Acid Level 1.3, Calcium Level 8.9, Total Bilirubin 0.5, Aspartate Amino Transf (AST/SGOT) 70H, Alanine Alston otransferase (ALT/SGPT) 83H, Alkaline Phosphatase 106, Lactate Dehydrogenase 198, Total Creatine Kinase 71, Creatine Kinase MB < 1.0, Creatine Kinase MB Relative Index 1.41, Troponin I < 0.02, C-Reactive Protein, Quantitative 16.50H, Total Protein 7.8, Albumin 3.5, Albumin/Globulin Ratio 0.8L CBC/BMP Laboratory Tests 01/10/21 17:32 Microbiology Microbiology 01/10/21 Respiratory Virus Panel (PCR) ([facility]) - Final, Complete SARS-CoV-2 (COVID 19) 01/10/21 Blood Culture, Received Pending 01/10/21 Blood Culture, Received Pending Home Medications Scheduled Azelastine HCl (Azelastine HCl) 0.1% [place].pump, 1 SPRAY NARES BID Baclofen (Baclofen) 20 Mg Tablet, 20 MG PO Q8H Docusate Sodium (Colace) 100 Mg Capsule, 100 MG PO BID Fenofibrate Nanocrystallized (Tricor) 145 Mg Tablet, 145 MG PO DAILY Fluticasone Propionate (Fluticasone Propionate) 15.8 Ml [place].susp, 1 SPRAY NARES BID Fluticasone/Vilanterol (Breo Ellipta 100-25 Mcg INH) 1 Each Blst.w.dev, 1 PUFF INH DAILY Levothyroxine Sodium (Synthroid) 112 Mcg Tablet, 112 MCG PO DAILY Meloxicam (Meloxicam) 15 Mg Tablet, 15 MG PO QHS Pantoprazole Sodium (Pantoprazole Sodium) 40 Mg Tablet.dr, 40 MG PO BID Pravastatin Sodium (Pravastatin Sodium) 40 Mg Tablet, 40 MG PO DAILY Pregabalin (Lyrica) 150 Mg Capsule, 150 MG PO BID Saccharomyces Boulardii (Probiotic) 250 Mg Capsule, 1 CAP PO BID Sulfamethoxazole/Trimethoprim (Sulfamethoxazole-Tmp Ds Tablet) 1 Each Tablet, 2 TAB PO BID Scheduled PRN Acetaminophen (Acetaminophen) 325 Mg Tablet, 650 MG PO Q6HP PRN for MILD PAIN/fever Albuterol Sulfate (Proair Hfa) 8.5 Gm Hfa.aer.ad, 1 PUFF INH Q4H PRN for SHORTNESS OF BREATH Benzonatate (Benzonatate) 100 Mg Capsule, 100 MG PO TIDP PRN for COUGH Nystatin (Nystatin Powder) 15 Gm Powder, 1 APPLIC TOP BID PRN for RASH APPLIES UNDER BREASTS Polyethylene Glycol 3350 (Miralax) 17 Gm Powd.pack, 1 PKT PO DAILYPRN PRN for CONSTIPATION Trazodone HCl (Trazodone HCl) 100 Mg Tablet, 100 MG PO QHS PRN for SLEEP Allergies Coded Allergies: latex (Verified Allergy, Severe, can't breathe, 05/18/20) Penicillins (Verified Allergy, Intermediate, diarrhea, 05/18/20) A-FIB/CHADSVASC A-FIB History Current/History of A-Fib/PAF?: No NAVJOT COBOS MD Jan 11, 2021 01:09
[2021-01-11] MEDS: ACETAMINOPHEN TAB 650MG DOSE (2X325MG) PO PRN ×2 (01:42→13:07)
[2021-01-11] MEDS ORDERED: COMBIVENT RESPIMAT 100-20MCG INHALER 4GM INH PRN (01:45)
[2021-01-11 01:57] VITALS: BP 112/71
[2021-01-11] MEDS ORDERED: VANCOMYCIN HCL 1,000 MG, VIAL MATE ADAPTER 1 EACH in NS 250 ML IV ONE ×2 (02:00→03:00)
[2021-01-11] MEDS: cefTRIAXone SOD 1 GM in D5W MINI-BAG PLUS 50 ML IV SCH (02:18)
[2021-01-11] MEDS: KETOROLAC 30 MG/ML 1ML VIAL IV PRN ×2 (03:00→22:26)
[2021-01-11] MEDS: BACLOFEN 10 MG TAB PO SCH ×3 (05:37→21:52)
[2021-01-11] MEDS: LEVOTHYROXINE 112MCG TABLET (0.112MG) PO SCH (05:37)
[2021-01-11] MEDS: HEPARIN SOD (PORCINE) 5000UNITS/ML 1ML VIAL/SYRINGE SC SCH ×3 (05:37→21:51)
[2021-01-11 06:00] VITALS: BP 95/52
[2021-01-11 06:45] LABS: BASO % 0.2 % (0.0-1.0); EOS % 0.3 % (0.0-3.0); HEMATOCRIT 39.7 % (36.0-47.0); LYMPH # 3.2 10^3/uL (1.5-5.0); LYMPH % 25.9 % (24.0-44.0); MEAN CORPUSCULAR HEMOGLOBIN 30.5 pg (27.0-33.0); MEAN CORPUSCULAR HGB CONC 33.2 g/dl (32.0-36.5); MEAN CORPUSCULAR VOLUME 91.7 fl (80.0-96.0); MONO # 1.2 10^3/uL (0.0-0.8); NEUTROPHILS # 7.7 10^3/uL (1.5-8.5); NEUTROPHILS % 63.2 % (36.0-66.0); PLATELET COUNT, AUTOMATED 145 10^3/uL (150-450); RED BLOOD COUNT 4.33 10^6/uL (4.00-5.40); WHITE BLOOD COUNT 12.2 10^3/uL (4.0-10.0)
[2021-01-11 06:55] LABS: HEMOGLOBIN 13.2 g/dl (12.0-15.5)
[2021-01-11 06:59] LABS: INR 1.2; PROTHROMBIN TIME 15.7 SECONDS (12.7-14.5)
[2021-01-11 07:00] LABS: PARTIAL THROMBOPLASTIN TIME 47.4 SECONDS (25.9-37.0)
[2021-01-11 07:03] LABS: D-DIMER QUANT 1103.71 ng/ml (<500)
[2021-01-11 07:41] LABS: ALBUMIN 2.7 GM/DL (3.2-5.2); ALT/SGPT 59 U/L (12-78); BILIRUBIN,TOTAL 0.5 MG/DL (0.2-1.0); BLOOD UREA NITROGEN 21 MG/DL (7-18); CALCIUM LEVEL 7.9 MG/DL (8.5-10.1); CARBON DIOXIDE LEVEL 25 MEQ/L (21-32); CHLORIDE LEVEL 108 MEQ/L (98-107); CPK CREATINE PHOSPHOKINASE 60 U/L (26-192); CREATININE FOR GFR 0.87 MG/DL (0.55-1.30); FERRITIN 467 NG/ML (8-252); GLOMERULAR FILTRATION RATE > 60.0 (>51); GLUCOSE, FASTING 91 MG/DL (70-100); LDH LACTATE DEHYDROGENASE 151 U/L (84-246); MAGNESIUM LEVEL 1.8 MG/DL (1.8-2.4); POTASSIUM SERUM 3.7 MEQ/L (3.5-5.1); SODIUM LEVEL 138 MEQ/L (136-145); TROPONIN I < 0.02 NG/ML (< 0.10)
[2021-01-11] MEDS: SYMBICORT 80/4.5MCG INHALER 6GM INH SCH ×2 (07:56→20:05)
[2021-01-11] MEDS: PREGABALIN 75 MG CAP(LYRICA) PO SCH ×2 (08:49→21:52)
[2021-01-11] MEDS: PRAVASTATIN 20 MG TAB PO SCH (08:49)
[2021-01-11] MEDS: FENOFIBRATE 145MG TABLET (TRICOR) PO SCH (08:49)
[2021-01-11] MEDS: PANTOPRAZOLE 40MG TAB (PROTONIX) PO SCH ×2 (08:49→21:52)
[2021-01-11] MEDS: AZELASTINE 137MCG NASAL SPY 30 ML (ASTELIN) SCH ×2 (08:49→21:53)
[2021-01-11] MEDS: MORPHINE 4 MG/ML 1ML VIAL/SYRINGE (J2270) IV PRN ×3 (08:59→19:49)
--- NOTE | 2021-01-11 16:54 | IPNPDOC ---
Subjective Date Seen The patient was seen on 01/11/21. Subjective Chief Complaint/HPI Patient was seen and examined at bedside this morning. She had just use the bathroom and was wincing in pain pointing towards her suprapubic region. She reports that there is burning sensation and it is very tender to touch in that region. She denies recent trauma to the area including razors, she does report sweating excessively in the region. Other systems 10 point review of system was negative except for what is noted in the HPI Objective Physical Examination Other physical findings General: Lying in bed, no acute distress Head/Neck/Throat: Trachea midline, mucous membranes moist Eyes: Sclera anicteric, no erythema or discharge appreciated bilaterally Thorax: Normal respiratory effort on room air, lungs clear to auscultation bilaterally, no wheezes/rales/rhonchi Cardiovascular: Normal rate, regular rhythm, normal S1, S2; no S3, S4, rubs/gallops/murmurs Abdomen: Bowel sounds present, soft/nontender/nondistended Genitourinary: No CVA tenderness, no Eduardo in place Musculoskeletal: Moving all extremities, no edema Skin: Suprapubic region is erythematous and tender to touch. Examination done with licensed psychologist director present in exam room. Neurologic: AAOx3, speech fluent and goal-directed, no focal deficits, grossly intact Assessment /Plan Assessment #Sepsis -Secondary to cellulitis. Vitals remained stable. Continue with ceftriaxone and vancomycin until cultures are resulted. #Covid -Saturating at 96% on room air. She is high risk for deterioration with her underlying body habitus as well as COPD history. At this junction, she does not qualify for remdesivir dexamethasone. We will continue to monitor pulse ox. #COPD -Continue Symbicort and Combivent as needed #DVT prophylaxis -heparin subcu Plan/VTE VTE Prophylaxis Ordered?: Yes VS, I&O, 24H, Fishbone Vital Signs/I&O Vital Signs Date Time Temp Pulse Resp B/P (MAP) Pulse Ox O2 Delivery O2 Flow Rate FiO2 01/11/21 15:39 17 01/11/21 06:00 98.2 78 95/52 (66) 96 Room Air I&O- Last 24 Hours up to 6 AM 01/11/21 06:00 Intake Total 1420 ml Balance 1420 ml Laboratory Data 24H LABS Laboratory Tests 2 01/10/21 17:32: Immature Granulocyte % (Auto) 0.5, Neutrophils (%) (Auto) 69.0H, Lymphocytes (%) (Auto) 20.1L, Monocytes (%) (Auto) 10.1H, Eosinophils (%) (Auto) 0.1, Basophils (%) (Auto) 0.2, Neutrophils # (Auto) 9.1H, Lymphocytes # (Auto) 2.6, Monocytes # (Auto) 1.3H, Eosinophils # (Auto) 0.0, Basophils # (Auto) 0.0, Nucleated Red Blood Cells % (auto) 0.0, D-Dimer, Quantitative 1446.46H, Anion Gap 6L, Glomerular Filtration Rate > 60.0, Lactic Acid Level 1.3, Calcium Level 8.9, Total Bilirubin 0.5, Aspartate Amino Transf (AST/SGOT) 70H, Alanine Aminotransfe rase (ALT/SGPT) 83H, Alkaline Phosphatase 106, Lactate Dehydrogenase 198, Total Creatine Kinase 71, Creatine Kinase MB < 1.0, Creatine Kinase MB Relative Index 1.41, Troponin I < 0.02, C-Reactive Protein, Quantitative 16.50H, Total Protein 7.8, Albumin 3.5, Albumin/Globulin Ratio 0.8L 01/11/21 06:28: Immature Granulocyte % (Auto) 0.4, Neutrophils (%) (Auto) 63.2, Lymphocytes (%) (Auto) 25.9, Monocytes (%) (Auto) 10.0H, Eosinophils (%) (Auto) 0.3, Basophils (%) (Auto) 0.2, Neutrophils # (Auto) 7.7, Lymphocytes # (Auto) 3.2, Monocytes # (Auto) 1.2H, Eosinophils # (Auto) 0.0, Basophils # (Auto) 0.0, Nucleated Red Blood Cells % (auto) 0.0, D-Dimer, Quantitative 1103.71H, Anion Gap 5L, Glomerular Filtration Rate > 60.0, Calcium Level 7.9L, Total Bilirubin 0.5, Aspartate Amino Transf (AST/SGOT) 50H, Alanine Aminotransferase (ALT/SGPT) 59, Alkaline Phosphatase 81, Lactate Dehydrogenase 151, Total Creatine Kinase 60, Troponin I < 0.02, C-Reactive Protein, Quantitative 12.40H, Total Protein 6.0#L, Albumin 2.7#L, Albumin/Globulin Ratio 0.8L, Prothrombin Time 15.7H, Prothromb Time International Ratio 1.20, Activated Partial Thromboplast Time 47.4H, Fibrinogen 500H, Magnesium Level 1.8, Ferritin 467H CBC/BMP Laboratory Tests 01/10/21 17:32 01/11/21 06:28 Microbiology Microbiology 01/10/21 Respiratory Virus Panel (PCR) ([facility]) - Final, Complete SARS-CoV-2 (COVID 19) 01/10/21 Blood Culture, Received Pending 01/10/21 Blood Culture, Received Pending DAYTON CARSON M.D. Jan 11, 2021 16:54
[2021-01-11] MEDS: VANCOMYCIN HCL 750 MG, VIAL MATE ADAPTER 1 EACH in NS 250 ML IV SCH ×2 (17:39→19:51)
[2021-01-11 18:00] VITALS: BP 125/70
--- NOTE | 2021-01-11 19:57 | ECGEPIP ---
[facility] - ED Test Date: 2021-01-10 Pat Name: GRAHAM KRAFT Department: Room: [place] [address] Gender: Female Benefit Director: marco a : 1970 Requested By: Samuel Molina Order Number: [id number] Reading MD: Sadia Cordon Measurements Intervals [place] Rate: 116 P: 46 CA: 136 QRS: 73 QRSD: 82 T: -5 QT: 316 QTc: 439 Interpretive Statements Sinus tachycardia ST & T wave abnormality, consider ischemia No prior Electronically Signed on 01-11-2021 19:57:10 EDT by Sadia Cordon
[2021-01-11] MEDS: traZODone 100 MG TAB PO PRN (21:52)
[2021-01-11 22:00] VITALS: BP 111/56
[2021-01-12] MEDS: cefTRIAXone SOD 1 GM in D5W MINI-BAG PLUS 50 ML IV SCH (00:29)
[2021-01-12] MEDS: VANCOMYCIN HCL 750 MG, VIAL MATE ADAPTER 1 EACH in NS 250 ML IV SCH ×4 (04:56→19:46)
[2021-01-12] MEDS: MORPHINE 4 MG/ML 1ML VIAL/SYRINGE (J2270) IV PRN ×2 (05:12→16:48)
[2021-01-12 06:00] VITALS: BP 94/50
[2021-01-12 06:20] LABS: HEMATOCRIT 35.1 % (36.0-47.0); HEMOGLOBIN 11.6 g/dl (12.0-15.5); MEAN CORPUSCULAR HEMOGLOBIN 30.6 pg (27.0-33.0); MEAN CORPUSCULAR VOLUME 92.6 fl (80.0-96.0); PLATELET COUNT, AUTOMATED 143 10^3/uL (150-450); RED BLOOD COUNT 3.79 10^6/uL (4.00-5.40)
[2021-01-12] MEDS: BACLOFEN 10 MG TAB PO SCH ×3 (06:33→22:07)
[2021-01-12] MEDS: LEVOTHYROXINE 112MCG TABLET (0.112MG) PO SCH (06:33)
[2021-01-12] MEDS: HEPARIN SOD (PORCINE) 5000UNITS/ML 1ML VIAL/SYRINGE SC SCH ×3 (06:33→22:09)
[2021-01-12] MEDS: NYSTATIN 100,000 UNITS/GM TOPICAL PWD 15 GM TOP PRN (06:39)
[2021-01-12 06:42] LABS: BLOOD UREA NITROGEN 17 MG/DL (7-18); CALCIUM LEVEL 8.1 MG/DL (8.5-10.1); CARBON DIOXIDE LEVEL 24 MEQ/L (21-32); CHLORIDE LEVEL 109 MEQ/L (98-107); CREATININE FOR GFR 0.89 MG/DL (0.55-1.30); GLOMERULAR FILTRATION RATE > 60.0 (>51); GLUCOSE, FASTING 118 MG/DL (70-100); MAGNESIUM LEVEL 1.8 MG/DL (1.8-2.4); POTASSIUM SERUM 3.4 MEQ/L (3.5-5.1); SODIUM LEVEL 139 MEQ/L (136-145)
[2021-01-12] MEDS: SYMBICORT 80/4.5MCG INHALER 6GM INH SCH ×2 (07:23→20:00)
[2021-01-12] MEDS ORDERED: FLUBLOK(EGG FREE)(QUAD)INFLUENZA VACC 0.5ML SYRINGE 18YRS & OLDER IM ONE (09:00)
[2021-01-12] MEDS: FENOFIBRATE 145MG TABLET (TRICOR) PO SCH (09:20)
[2021-01-12] MEDS: PREGABALIN 75 MG CAP(LYRICA) PO SCH ×2 (09:21→22:07)
[2021-01-12] MEDS: PANTOPRAZOLE 40MG TAB (PROTONIX) PO SCH ×2 (09:21→22:07)
[2021-01-12] MEDS: PRAVASTATIN 20 MG TAB PO SCH (09:21)
[2021-01-12] MEDS: AZELASTINE 137MCG NASAL SPY 30 ML (ASTELIN) SCH ×2 (09:32→22:09)
[2021-01-12] MEDS: KETOROLAC 30 MG/ML 1ML VIAL IV PRN ×2 (09:32→22:10)
--- NOTE | 2021-01-12 13:27 | IPNPDOC ---
Subjective Date Seen The patient was seen on 01/12/21. Subjective Chief Complaint/HPI Patient seen and examinedat bedside this morning. She reports significant improvement in her suprapubic tenderness and erythema. She had no respiratory complaints. Overnight no acute events reported Other systems 10 point review of system was negative except for what is noted in the HPI Objective Physical Examination Other physical findings General: Lying in bed, no acute distress Head/Neck/Throat: Trachea midline, mucous membranes moist Eyes: Sclera anicteric, no erythema or discharge appreciated bilaterally Thorax: Normal respiratory effort on room air, lungs clear to auscultation bilaterally, no wheezes/rales/rhonchi Cardiovascular: Normal rate, regular rhythm, normal S1, S2; no S3, S4, rubs/gallops/murmurs Abdomen: Bowel sounds present, soft/nontender/nondistended Genitourinary: No CVA tenderness, no Eduardo in place Musculoskeletal: Moving all extremities, no edema Skin: Suprapubic region erythema improving, less tender to touch. Examination done with sewage disposal engineer present in exam room. Neurologic: AAOx3, speech fluent and goal-directed, no focal deficits, grossly intact Assessment /Plan Assessment #Sepsis -Secondary to cellulitis. Vitals remained stable. Continue with ceftriaxone and vancomycin until cultures are resulted. #Covid -Saturating at 96% on room air. She is high risk for deterioration with her underlying body habitus as well as COPD history. At this junction, she does not qualify for remdesivir dexamethasone. We will continue to monitor pulse ox. #COPD -Continue Symbicort and Combivent as needed #DVT prophylaxis -heparin subcu Plan/VTE VTE Prophylaxis Ordered?: Yes VS, I&O, 24H, [facility] Vital Signs/I&O Vital Signs Date Time Temp Pulse Resp B/P (MAP) Pulse Ox O2 Delivery O2 Flow Rate FiO2 01/12/21 06:33 18 Room Air 01/12/21 06:00 98.3 89 94/50 (65) 96 I&O- Last 24 Hours up to 6 AM 01/12/21 06:00 Intake Total 240 ml Balance 240 ml Laboratory Data 24H LABS Laboratory Tests 2 01/11/21 22:42: Methicillin-Resist S.aureus DNA PCR DETECTEDA 01/12/21 05:47: Nucleated Red Blood Cells % (auto) 0.0, Anion Gap 6L, Glomerular Filtration Rate > 60.0, Calcium Level 8.1L, Phosphorus Level 3.0, Magnesium Level 1.8 CBC/BMP Laboratory Tests 01/12/21 05:47 Microbiology Microbiology 01/10/21 Respiratory Virus Panel (PCR) ([facility]) - Final, Complete SARS-CoV-2 (COVID 19) 01/10/21 Blood Culture - Preliminary, Resulted No growth after 24 hours . All specim... 01/10/21 Blood Culture - Preliminary, Resulted No growth after 24 hours . All specim... DAYTON CARSON M.D. Jan 12, 2021 13:27
[2021-01-12] MEDS ORDERED: MAG SULF 1GM/100ML (MAG RUN) 1 GM in IV 1 EA IV ONE (14:00)
[2021-01-12] MEDS ORDERED: POTASSIUM CHLORIDE 10MEQ SR TABLET PO ONE ×2 (14:00→16:00)
[2021-01-12 15:10] VITALS: BP 120/58
[2021-01-12] MEDS ORDERED: HYALURONIDASE 150UNIT/ML 1ML VIAL (AMPHADASE) ID ONE (19:00)
[2021-01-12] MEDS ORDERED: HYALURONIDASE (150 UNIT/ML) SQ (pinwheel) SQ ONE (19:05)
[2021-01-12 22:00] VITALS: BP 133/74
[2021-01-13] MEDS: cefTRIAXone SOD 1 GM in D5W MINI-BAG PLUS 50 ML IV SCH (00:30)
[2021-01-13] MEDS: VANCOMYCIN HCL 750 MG, VIAL MATE ADAPTER 1 EACH in NS 250 ML IV SCH ×4 (05:09→19:49)
[2021-01-13] MEDS: MORPHINE 4 MG/ML 1ML VIAL/SYRINGE (J2270) IV PRN ×3 (05:10→20:27)
[2021-01-13 05:33] LABS: HEMATOCRIT 37.6 % (36.0-47.0); HEMOGLOBIN 12.1 g/dl (12.0-15.5); MEAN CORPUSCULAR HEMOGLOBIN 30.4 pg (27.0-33.0); MEAN CORPUSCULAR HGB CONC 32.2 g/dl (32.0-36.5); MEAN CORPUSCULAR VOLUME 94.5 fl (80.0-96.0); PLATELET COUNT, AUTOMATED 157 10^3/uL (150-450); RED BLOOD COUNT 3.98 10^6/uL (4.00-5.40); WHITE BLOOD COUNT 5.4 10^3/uL (4.0-10.0)
[2021-01-13 05:52] VITALS: BP 122/56
[2021-01-13 05:59] LABS: BLOOD UREA NITROGEN 12 MG/DL (7-18); CALCIUM LEVEL 8.5 MG/DL (8.5-10.1); CARBON DIOXIDE LEVEL 22 MEQ/L (21-32); CHLORIDE LEVEL 114 MEQ/L (98-107); CREATININE FOR GFR 0.86 MG/DL (0.55-1.30); GLOMERULAR FILTRATION RATE > 60.0 (>51); GLUCOSE, FASTING 128 MG/DL (70-100); MAGNESIUM LEVEL 1.7 MG/DL (1.8-2.4); PHOSPHORUS LEVEL 2.9 MG/DL (2.5-4.9); POTASSIUM SERUM 4.2 MEQ/L (3.5-5.1); SODIUM LEVEL 143 MEQ/L (136-145)
[2021-01-13] MEDS: BACLOFEN 10 MG TAB PO SCH ×3 (06:24→20:26)
[2021-01-13] MEDS: LEVOTHYROXINE 112MCG TABLET (0.112MG) PO SCH (06:25)
[2021-01-13] MEDS: HEPARIN SOD (PORCINE) 5000UNITS/ML 1ML VIAL/SYRINGE SC SCH ×3 (06:25→20:26)
[2021-01-13] MEDS: SYMBICORT 80/4.5MCG INHALER 6GM INH SCH ×2 (07:25→19:52)
[2021-01-13] MEDS ORDERED: MAGNESIUM OXIDE 400MG TAB (MAG-OX) PO ONE (08:15)
[2021-01-13] MEDS: PRAVASTATIN 20 MG TAB PO SCH (08:25)
[2021-01-13] MEDS: FENOFIBRATE 145MG TABLET (TRICOR) PO SCH (08:25)
[2021-01-13] MEDS: AZELASTINE 137MCG NASAL SPY 30 ML (ASTELIN) SCH ×2 (08:25→20:27)
[2021-01-13] MEDS: PREGABALIN 75 MG CAP(LYRICA) PO SCH ×2 (08:25→20:26)
[2021-01-13] MEDS: PANTOPRAZOLE 40MG TAB (PROTONIX) PO SCH ×2 (08:25→20:26)
--- NOTE | 2021-01-13 12:18 | IPNPDOC ---
Subjective Date Seen The patient was seen on 01/13/21. Subjective Chief Complaint/HPI Patient seen and examined at bedside this morning. She was in good spirits and reported significant improvement in her suprapubic tenderness, and erythema. On 01/12 she had her vancomycin infiltrate into her hand where her IV was. This required hyaluronidase local injections. She reports significant improvement in her hand symptoms, and denies numbness/tingling, and weakness. Other systems 10 point review of system was negative except for what is noted in the HPI Objective Physical Examination Other physical findings General: Lying in bed, no acute distress Head/Neck/Throat: Trachea midline, mucous membranes moist Eyes: Sclera anicteric, no erythema or discharge appreciated bilaterally Thorax: Normal respiratory effort on room air, lungs clear to auscultation bi laterally, no wheezes/rales/rhonchi Cardiovascular: Normal rate, regular rhythm, normal S1, S2; no S3, S4, rubs/gallops/murmurs Abdomen: Bowel sounds present, soft/nontender/nondistended Genitourinary: No CVA tenderness, no Eduardo in place Musculoskeletal: Moving all extremities, no edema Skin: Suprapubic region erythema improving, less tender to touch. Examination done with room service runner present in exam room. Right hand his edematous, strength is 5/5 at the wrists and fingers, sensation to gross and sharp touch intact, radial pulses are palpable Neurologic: AAOx3, speech fluent and goal-directed, no focal deficits, grossly intact Assessment /Plan Assessment #Sepsis -Secondary to cellulitis. Vitals remain stable. -Continue w/ vancomycin #Bacteremia -1 bottle of blood cultures is positive for staph aureus in clusters. Maintain current antibiotics. -Repeat blood cultures today. #IV infiltrate of right hand -Vancomycin infiltrated right hand. She received shots of hyaluronidase with significant improvement. Asked nurse to start warm compresses #Covid -Saturating at 96% on room air. She is high risk for deterioration with her underlying body habitus as well as COPD history. At this junction, she does not qualify for remdesivir or dexamethasone. We will continue to monitor pulse ox. #COPD -Continue Symbicort and Combivent as needed #DVT prophylaxis -heparin subcu Plan/VTE VTE Prophylaxis Ordered?: Yes VS, I&O, 24H, Fishbone Vital Signs/I&O Vital Signs Date Time Temp Pulse Resp B/P (MAP) Pulse Ox O2 Delivery O2 Flow Rate FiO2 01/13/21 05:52 98.7 85 18 122/56 (78) 99 Room Air I&O- Last 24 Hours up to 6 AM 01/13/21 06:00 Intake Total 865 ml Balance 865 ml Laboratory Data 24H LABS Laboratory Tests 2 01/12/21 15:44: Vancomycin Level Trough 14.1 01/13/21 04:52: Nucleated Red Blood Cells % (auto) 0.0, Anion Gap 7L, Glomerular Filtration Rate > 60.0, Calcium Level 8.5, Phosphorus Level 2.9, Magnesium Level 1.7L CBC/BMP Laboratory Tests 01/13/21 04:52 Microbiology Microbiology 01/13/21 Blood Culture, Received Pending 01/13/21 Blood Culture, Received Pending 01/10/21 Respiratory Virus Panel (PCR) ([facility]) - Final, Complete SARS-CoV-2 (COVID 19) 01/10/21 Blood Culture - Preliminary, Resulted No Growth after 48 hours. All Specime... 01/10/21 Blood Culture - Preliminary, Resulted DAYTON CARSON M.D. Jan 13, 2021 12:18
[2021-01-13 14:00] VITALS: BP 115/56
[2021-01-13] MEDS: ACETAMINOPHEN TAB 650MG DOSE (2X325MG) PO PRN (14:47)
[2021-01-13 20:00] VITALS: BP 117/58
[2021-01-13] MEDS: traZODone 100 MG TAB PO PRN (23:32)
[2021-01-13] MEDS: KETOROLAC 30 MG/ML 1ML VIAL IV PRN (23:36)
[2021-01-14] MEDS: MORPHINE 4 MG/ML 1ML VIAL/SYRINGE (J2270) IV PRN ×3 (02:13→15:05)
[2021-01-14] MEDS: VANCOMYCIN HCL 750 MG, VIAL MATE ADAPTER 1 EACH in NS 250 ML IV SCH ×4 (04:40→18:30)
[2021-01-14] MEDS ORDERED: SENNA 8.6 MG TAB (SENOKOT) PO PRN (05:05)
[2021-01-14] MEDS ORDERED: MIRALAX *UNIT DOSE* 17GM PACKET PO PRN (05:05)
[2021-01-14] MEDS: LEVOTHYROXINE 112MCG TABLET (0.112MG) PO SCH (05:22)
[2021-01-14] MEDS: HEPARIN SOD (PORCINE) 5000UNITS/ML 1ML VIAL/SYRINGE SC SCH ×3 (05:22→22:07)
[2021-01-14] MEDS: BACLOFEN 10 MG TAB PO SCH ×3 (05:22→20:52)
[2021-01-14 06:00] VITALS: BP 131/66
[2021-01-14 07:24] LABS: HEMATOCRIT 36.2 % (36.0-47.0); HEMOGLOBIN 12.1 g/dl (12.0-15.5); MEAN CORPUSCULAR HEMOGLOBIN 30.9 pg (27.0-33.0); MEAN CORPUSCULAR HGB CONC 33.4 g/dl (32.0-36.5); MEAN CORPUSCULAR VOLUME 92.3 fl (80.0-96.0); PLATELET COUNT, AUTOMATED 156 10^3/uL (150-450); RED BLOOD COUNT 3.92 10^6/uL (4.00-5.40); WHITE BLOOD COUNT 4.3 10^3/uL (4.0-10.0)
[2021-01-14 07:48] LABS: BLOOD UREA NITROGEN 11 MG/DL (7-18); CALCIUM LEVEL 8.6 MG/DL (8.5-10.1); CARBON DIOXIDE LEVEL 26 MEQ/L (21-32); CHLORIDE LEVEL 110 MEQ/L (98-107); CREATININE FOR GFR 0.76 MG/DL (0.55-1.30); GLOMERULAR FILTRATION RATE > 60.0 (>51); GLUCOSE, FASTING 76 MG/DL (70-100); MAGNESIUM LEVEL 1.6 MG/DL (1.8-2.4); POTASSIUM SERUM 4.1 MEQ/L (3.5-5.1); SODIUM LEVEL 142 MEQ/L (136-145)
[2021-01-14] MEDS: AZELASTINE 137MCG NASAL SPY 30 ML (ASTELIN) SCH ×2 (07:48→20:53)
[2021-01-14] MEDS: PREGABALIN 75 MG CAP(LYRICA) PO SCH ×2 (07:48→20:52)
[2021-01-14] MEDS: PRAVASTATIN 20 MG TAB PO SCH (07:49)
[2021-01-14] MEDS: NYSTATIN 100,000 UNITS/GM TOPICAL PWD 15 GM TOP PRN (07:49)
[2021-01-14] MEDS: PANTOPRAZOLE 40MG TAB (PROTONIX) PO SCH ×2 (07:49→20:53)
[2021-01-14] MEDS: FENOFIBRATE 145MG TABLET (TRICOR) PO SCH (07:49)
[2021-01-14] MEDS: SYMBICORT 80/4.5MCG INHALER 6GM INH SCH ×2 (08:03→23:01)
[2021-01-14] MEDS ORDERED: MAGNESIUM OXIDE 400MG TAB (MAG-OX) PO ONE (09:25)
--- NOTE | 2021-01-14 09:31 | IPNPDOC ---
Subjective Date Seen The patient was seen on 01/14/21. Subjective Chief Complaint/HPI Patient was seen and examined at bedside this morning. She reported moderate amount of pain in her suprapubic region, and focal drainage now. She denied chest pain, shortness of breath, fever, chills, abdominal pain, nausea, vomiting, problems with urination and bowel movements. Objective Physical Examination Other physical findings General: Lying in bed, no acute distress Head/Neck/Throat: Trachea midline, mucous membranes moist Eyes: Sclera anicteric, no erythema or discharge appreciated bilaterally Thorax: Normal respiratory effort on room air, lungs clear to auscultation bilaterally, no wheezes/rales/rhonchi Cardiovascular: Normal rate, regular rhythm, normal S1, S2; no S3, S4, rubs/ gallops/murmurs Abdomen: Bowel sounds present, soft/nontender/nondistended Genitourinary: No CVA tenderness, no Eduardo in place Musculoskeletal: Moving all extremities, no edema Skin: Suprapubic region erythema improving. Over the left right suprapubic region, there is an opening with pus draining that was expressed with nurse present at bedside Right hand his edematous, strength is 5/5 at the wrists and fingers, sensation to gross and sharp touch intact, radial pulses are palpable Neurologic: AAOx3, speech fluent and goal-directed, no focal deficits, grossly intact Assessment /Plan Assessment #Sepsis -Secondary to cellulitis. Vitals remain stable. Pus expressed from opening today, and asked nurse to send cultures -Continue w/ vancomycin, her ceftriaxone has been discontinued considering that this is likely staph aureus due to the pus appreciated. #Bacteremia -1 bottle of blood cultures is positive for staph aureus in clusters. Maintain current antibiotics. -Repeat blood cultures no growth thus far, suspect contaminant #IV infiltrate of right hand -Vancomycin infiltrated right hand. She received shots of hyaluronidase with significant improvement. Asked nurse to start warm compresses #Covid -Saturating at 96% on room air. She is high risk for deterioration with her underlying body habitus as well as COPD history. At this junction, she does not qualify for remdesivir or dexamethasone. We will continue to monitor pulse ox. #COPD -Continue Symbicort and Combivent as needed #DVT prophylaxis -heparin subcu Plan/VTE VTE Prophylaxis Ordered?: Yes VS, I&O, 24H, Fishbone Vital Signs/I&O Vital Signs Date Time Temp Pulse Resp B/P (MAP) Pulse Ox O2 Delivery O2 Flow Rate FiO2 01/14/21 06:47 18 Room Air 01/14/21 06:00 99.4 81 131/66 (87) 97 I&O- Last 24 Hours up to 6 AM 01/14/21 06:00 Intake Total 4800 ml Balance 4800 ml Laboratory Data 24H LABS Laboratory Tests 2 01/13/21 16:14: Vancomycin Level Trough 13.6 01/14/21 06:37: Nucleated Red Blood Cells % (auto) 0.0, Anion Gap 6L, Glomerular Filtration Rate > 60.0, Calcium Level 8.6, Phosphorus Level 3.0, Magnesium Level 1.6L CBC/BMP Laboratory Tests 01/14/21 06:37 Microbiology Microbiology 01/13/21 Blood Culture - Preliminary, Resulted No growth after 24 hours . All specim... 01/13/21 Blood Culture - Preliminary, Resulted No growth after 24 hours . All specim... 01/10/21 Respiratory Virus Panel (PCR) ([facility]) - Final, Complete SARS-CoV-2 (COVID 19) 01/10/21 Blood Culture - Preliminary, Resulted No Growth after 72 hours. All specime... 01/10/21 Blood Culture - Preliminary, Resulted DAYTON CARSON M.D. Jan 14, 2021 09:31
[2021-01-14] MEDS: ACETAMINOPHEN TAB 650MG DOSE (2X325MG) PO PRN ×2 (10:36→22:15)
[2021-01-14] MEDS: KETOROLAC 30 MG/ML 1ML VIAL IV PRN ×2 (10:37→22:07)
[2021-01-14] MEDS: MOM 30ML SUSPENSION UDC PO PRN (10:45)
[2021-01-14 18:05] VITALS: BP 129/66
--- NOTE | 2021-01-14 18:33 | REP ---
INDICATION: suprapubic region/to r/o abcess - draining appreciated now COMPARISON: 01/10/2021 TECHNIQUE: Limited directed ultrasound using linear high-frequency transducer. FINDINGS: Directed ultrasound examination of the suprapubic area is unchanged from prior examination. No obvious fluid collection/abscess or mass lesion identified. IMPRESSION: No obvious fluid collection or abscess identified. <Electronically signed by Hilario Guo > 01/14/21 [id number]
[2021-01-14 21:08] VITALS: BP 129/60
[2021-01-14] MEDS: ONDANSETRON 4MG/2ML VIAL IV PRN (22:05)
[2021-01-14] MEDS: traZODone 100 MG TAB PO PRN (23:27)
[2021-01-15] MEDS: MORPHINE 4 MG/ML 1ML VIAL/SYRINGE (J2270) IV PRN ×3 (03:16→21:24)
[2021-01-15] MEDS: VANCOMYCIN HCL 750 MG, VIAL MATE ADAPTER 1 EACH in NS 250 ML IV SCH ×4 (05:00→18:51)
[2021-01-15 06:06] VITALS: BP_SYST 106; BP_SYST 149; BP_DIAS 59; BP_DIAS 74
[2021-01-15 06:12] LABS: HEMATOCRIT 34.8 % (36.0-47.0); HEMOGLOBIN 11.3 g/dl (12.0-15.5); MEAN CORPUSCULAR HEMOGLOBIN 30.1 pg (27.0-33.0); MEAN CORPUSCULAR HGB CONC 32.5 g/dl (32.0-36.5); MEAN CORPUSCULAR VOLUME 92.8 fl (80.0-96.0); PLATELET COUNT, AUTOMATED 172 10^3/uL (150-450); RED BLOOD COUNT 3.75 10^6/uL (4.00-5.40); WHITE BLOOD COUNT 4.5 10^3/uL (4.0-10.0)
[2021-01-15] MEDS: LEVOTHYROXINE 112MCG TABLET (0.112MG) PO SCH (06:21)
[2021-01-15] MEDS: BACLOFEN 10 MG TAB PO SCH ×3 (06:22→21:21)
[2021-01-15] MEDS: HEPARIN SOD (PORCINE) 5000UNITS/ML 1ML VIAL/SYRINGE SC SCH ×3 (06:22→21:22)
[2021-01-15 06:23] LABS: BLOOD UREA NITROGEN 11 MG/DL (7-18); CALCIUM LEVEL 7.9 MG/DL (8.5-10.1); CARBON DIOXIDE LEVEL 28 MEQ/L (21-32); CHLORIDE LEVEL 110 MEQ/L (98-107); CREATININE FOR GFR 0.71 MG/DL (0.55-1.30); GLOMERULAR FILTRATION RATE > 60.0 (>51); GLUCOSE, FASTING 81 MG/DL (70-100); MAGNESIUM LEVEL 1.8 MG/DL (1.8-2.4); PHOSPHORUS LEVEL 3.3 MG/DL (2.5-4.9); POTASSIUM SERUM 4.1 MEQ/L (3.5-5.1); SODIUM LEVEL 144 MEQ/L (136-145)
[2021-01-15] MEDS: ACETAMINOPHEN TAB 650MG DOSE (2X325MG) PO PRN ×2 (06:39→17:11)
[2021-01-15] MEDS: SYMBICORT 80/4.5MCG INHALER 6GM INH SCH ×2 (07:54→21:29)
[2021-01-15] MEDS: PREGABALIN 75 MG CAP(LYRICA) PO SCH ×2 (08:15→21:21)
[2021-01-15] MEDS: PRAVASTATIN 20 MG TAB PO SCH (08:15)
[2021-01-15] MEDS: PANTOPRAZOLE 40MG TAB (PROTONIX) PO SCH ×2 (08:15→21:22)
[2021-01-15] MEDS: FENOFIBRATE 145MG TABLET (TRICOR) PO SCH (08:15)
[2021-01-15] MEDS: AZELASTINE 137MCG NASAL SPY 30 ML (ASTELIN) SCH ×2 (08:16→21:21)
[2021-01-15] MEDS: KETOROLAC 30 MG/ML 1ML VIAL IV PRN ×2 (08:22→17:11)
[2021-01-15 14:00] VITALS: BP 115/66
[2021-01-15] MEDS: ONDANSETRON 4MG/2ML VIAL IV PRN (17:10)
--- NOTE | 2021-01-15 19:42 | IPNPDOC ---
Date Seen The patient was seen on 01/15/21. Progress Note Subjective: Pain in suprapubic region and induration/erythema improving slowly. Draining occasionally. Cx pending. Admits to SOB with activity. Denies chest pain, shortness of breath, fever, chills, abdominal pain, nausea, vomiting, problems with urination and bowel movements. Objective: Physical Examination VS: Please see below General: Lying in bed, no acute distress Head/Neck/Throat: Trachea midline, mucous membranes moist Eyes: Sclera anicteric, no erythema or discharge appreciated bilaterally Thorax: Normal respiratory effort on room air, lungs clear to auscultation bilaterally, no wheezes/rales/rhonchi Cardiovascular: Normal rate, regular rhythm, normal S1, S2; no S3, S4, rubs /gallops/murmurs Abdomen: Bowel sounds present, soft/nontender/nondistended Genitourinary: No CVA tenderness, no Eduardo in place Musculoskeletal: Moving all extremities, no edema Skin: Suprapubic region erythema/induration present, slightly warm and pink over area of concern. Draining area on top of induration. Neurologic: AAOx3, speech fluent and goal-directed, no focal deficits, grossly intact Imaging: Suprapubic US: no abscess Labs: Please see below Micro: Groin wound culture: GS: NG Cx pending BCx NG x 2 Assessment /Plan: #Sepsis 2/2 to abdominal/groin cellulitis -01/14/21 expressed pus from area of cellulitis, US neg for abscess -Wound cx pending, repeat BCx NG -Continue w/ vancomycin, daily labs #IV infiltrate of right hand- improving -Vancomycin infiltrated right hand. She received shots of hyaluronidase with significant improvement. Asked nurse to start warm compresses -Monitoring closely #COVID 19 infection -Saturating at 98% on room air. - We will continue to monitor pulse ox. #COPD -Continue Symbicort and Combivent as needed #Bacteremia -1 bottle of blood cultures is positive for staph aureus in clusters. Maintain current antibiotics. -Repeat blood cultures no growth thus far, suspect contaminant #DVT prophylaxis -heparin subcu DISPOSITION: Currently inpatient. Plan is home when appropriate for d/c VS, I&O, 24H, Fishbone Vital Signs/I&O Vital Signs Date Time Temp Pulse Resp B/P (MAP) Pulse Ox O2 Delivery O2 Flow Rate FiO2 01/15/21 14:00 98.2 79 18 115/66 (82) 98 Room Air l I&O- Last 24 Hours up to 6 AM 01/15/21 06:00 Intake Total 2290 ml Output Total 100 ml Balance 2190 ml Laboratory Data 24H LABS Laboratory Tests 2 01/15/21 05:42: Nucleated Red Blood Cells % (auto) 0.0, Anion Gap 6L, Glomerular Filtration Rate > 60.0, Calcium Level 7.9L, Phosphorus Level 3.3, Magnesium Level 1.8 01/15/21 16:14: Vancomycin Level Trough 17.1 CBC/BMP Laboratory Tests 01/15/21 05:42 Microbiology Microbiology 01/14/21 Gram Stain - Final, Resulted 01/14/21 Wound Culture, Resulted Pending 01/13/21 Blood Culture - Preliminary, Resulted No Growth after 48 hours. All Specime... 01/13/21 Blood Culture - Preliminary, Resulted No Growth after 48 hours. All Specime... 01/10/21 Respiratory Virus Panel (PCR) ([facility]) - Final, Complete SARS-CoV-2 (COVID 19) 01/10/21 Blood Culture - Final, Complete NO GROWTH AFTER 5 DAYS 01/10/21 Blood Culture - Preliminary, Resulted Current Medications Current Medications Medications (Trade) Dose Ordered Sig/Angie Route PRN Reason Start Time Stop Time Status Last Admin Dose Admin Acetaminophen (Tylenol Tab) 650 mg Q4H PRN PO MILD PAIN/fever 01/11/21 00:40 01/15/21 17:11 Al Hydrox/Mg Hydrox/Simethicone (Mylanta) 30 ml DAILY PRN PO DYSPEPSIA 01/11/21 00:40 Albuterol Sulfate (Proventil, Ventolin Hfa) 1 puff Q4H PRN INH SHORTNESS OF BREATH 01/11/21 00:40 Albuterol/ Ipratropium (Combivent Respimat 100-20mcg) 1 puff Q4HP PRN INH SHORTNESS OF BREATH 01/11/21 01:45 Azelastine HCl (Astelin) 1 SPRAY TO EACH NARE BID NA 01/11/21 09:00 01/15/21 08:16 Baclofen (Lioresal) 20 mg Q8H PO 01/11/21 06:00 01/15/21 15:01 Budesonide/ Formoterol Fumarate (Symbicort 80/ 4.5mcg) 2 puff RBID INH 01/11/21 08:00 01/15/21 07:54 Ceftriaxone Sodium 1 gm/ Dextrose 50 ml @ 100 mls/hr Q24H IV 01/11/21 00:00 01/13/21 12:19 DC 01/13/21 00:30 Fenofibrate (Tricor) 145 mg DAILY PO 01/11/21 09:00 01/15/21 08:15 Heparin Sodium (Porcine) (Heparin) 5,000 units Q8H SC 01/11/21 06:00 01/15/21 15:01 Home Med (Home Med List Complete!) ASDIRECTED XX 01/10/21 19:20 01/10/21 19:20 DC Ketorolac Tromethamine (ToRADol) 15 mg Q8H PRN IV MODERATE PAIN (PS 5-7) 01/12/21 13:30 01/16/21 02:24 01/15/21 17:11 Ketorolac Tromethamine (ToRADol) 30 mg Q6H PRN IV mod pain 01/11/21 02:25 01/12/21 13:25 DC 01/12/21 09:32 Levothyroxine Sodium (Synthroid) 112 mcg DAILY@0600 PO 01/11/21 06:00 01/15/21 06:21 Magnesium Hydroxide (Milk Of Magnesia) 30 ml DAILY PRN PO CONSTIPATION 01/11/21 00:40 01/14/21 10:45 Morphine Sulfate (Morphine Sulfate Inj) 2 mg Q4H PRN IV severe pain 01/11/21 02:25 01/15/21 12:51 Nystatin (Mycostatin Powder, Nystop) 1 dose BIDP PRN TOP RASH 01/11/21 23:10 01/14/21 07:49 Ondansetron HCl (ZOFRAN INJection) 4 mg Q4HP PRN IV NAUSEA OR VOMITING 01/14/21 20:50 01/15/21 17:10 Pantoprazole Sodium (Protonix) 40 mg BID PO 01/11/21 09:00 01/15/21 08:15 Polyethylene Glycol (Miralax) 1 pkt DAILYPRN PRN PO CONSTIPATION 01/14/21 05:05 Pravastatin Sodium (Pravachol) 40 mg DAILY PO 01/11/21 09:00 01/15/21 08:15 Pregabalin (Lyrica) 150 mg BID PO 01/11/21 09:00 01/15/21 08:15 Senna (Senokot) 1 tab BIDP PRN PO CONSTIPATION 01/14/21 05:05 01/14/21 05:22 Trazodone HCl (Desyrel) 100 mg QHS PRN PO SLEEP 01/11/21 00:40 01/14/21 23:27 Vancomycin HCl 750 mg/IV Miscellaneous Supplies 1 each/ Sodium Chloride 275 ml @ 275 mls/hr Q12H IV 01/11/21 17:00 01/15/21 17:11 Vancomycin HCl 750 mg/IV Miscellaneous Supplies 1 each/ Sodium Chloride 275 ml @ 275 mls/hr Q12H IV 01/11/21 18:00 01/15/21 18:51 Vancomycin HCl 1000 mg/IV Miscellaneous Supplies 1 each/ Sodium Chloride 270 ml @ 270 mls/hr Q12H IV 01/11/21 00:40 01/11/21 05:50 DC Allergies Coded Allergies: latex (Verified Allergy, Severe, can't breathe, 05/18/20) Penicillins (Verified Allergy, Intermediate, diarrhea, 05/18/20) Isabell Askew MD Jan 15, 2021 19:42
[2021-01-15] MEDS: traZODone 100 MG TAB PO PRN (21:25)
[2021-01-15 22:00] VITALS: BP 110/59
[2021-01-16] MEDS: KETOROLAC 30 MG/ML 1ML VIAL IV PRN (02:20)
[2021-01-16] MEDS: ACETAMINOPHEN TAB 650MG DOSE (2X325MG) PO PRN ×3 (02:22→18:37)
[2021-01-16] MEDS: VANCOMYCIN HCL 750 MG, VIAL MATE ADAPTER 1 EACH in NS 250 ML IV SCH ×4 (05:35→18:11)
[2021-01-16 05:44] VITALS: BP 113/64
[2021-01-16] MEDS: LEVOTHYROXINE 112MCG TABLET (0.112MG) PO SCH (06:19)
[2021-01-16] MEDS: BACLOFEN 10 MG TAB PO SCH ×3 (06:19→21:27)
[2021-01-16] MEDS: HEPARIN SOD (PORCINE) 5000UNITS/ML 1ML VIAL/SYRINGE SC SCH ×3 (06:19→21:27)
[2021-01-16] MEDS: SYMBICORT 80/4.5MCG INHALER 6GM INH SCH ×2 (08:00→20:00)
[2021-01-16 08:03] LABS: HEMATOCRIT 34.9 % (36.0-47.0); HEMOGLOBIN 11.3 g/dl (12.0-15.5); MEAN CORPUSCULAR HEMOGLOBIN 30.4 pg (27.0-33.0); MEAN CORPUSCULAR HGB CONC 32.4 g/dl (32.0-36.5); MEAN CORPUSCULAR VOLUME 93.8 fl (80.0-96.0); PLATELET COUNT, AUTOMATED 177 10^3/uL (150-450); RED BLOOD COUNT 3.72 10^6/uL (4.00-5.40); WHITE BLOOD COUNT 5.3 10^3/uL (4.0-10.0)
[2021-01-16 08:22] LABS: ALBUMIN 2.2 GM/DL (3.2-5.2); ALT/SGPT 56 U/L (12-78); BILIRUBIN,TOTAL 0.3 MG/DL (0.2-1.0); BLOOD UREA NITROGEN 10 MG/DL (7-18); CALCIUM LEVEL 7.9 MG/DL (8.5-10.1); CARBON DIOXIDE LEVEL 28 MEQ/L (21-32); CHLORIDE LEVEL 112 MEQ/L (98-107); CREATININE FOR GFR 0.76 MG/DL (0.55-1.30); GLOMERULAR FILTRATION RATE > 60.0 (>51); GLUCOSE, FASTING 78 MG/DL (70-100); POTASSIUM SERUM 4.2 MEQ/L (3.5-5.1); SODIUM LEVEL 143 MEQ/L (136-145); TOTAL PROTEIN 5.9 GM/DL (6.4-8.2)
[2021-01-16] MEDS: PANTOPRAZOLE 40MG TAB (PROTONIX) PO SCH ×2 (08:47→20:31)
[2021-01-16] MEDS: PREGABALIN 75 MG CAP(LYRICA) PO SCH ×2 (08:47→20:31)
[2021-01-16] MEDS: FENOFIBRATE 145MG TABLET (TRICOR) PO SCH (08:47)
[2021-01-16] MEDS: PRAVASTATIN 20 MG TAB PO SCH (08:47)
[2021-01-16] MEDS: AZELASTINE 137MCG NASAL SPY 30 ML (ASTELIN) SCH ×2 (08:48→20:31)
[2021-01-16] MEDS: NYSTATIN 100,000 UNITS/GM TOPICAL PWD 15 GM TOP PRN ×2 (08:48→20:31)
[2021-01-16 09:13] LABS: ERYTHROCYTE SEDIMENTATION RATE 52 mm/hr (0-30)
[2021-01-16] MEDS: NORCO, ANEXSIA 5/325MG TABLET (HYDROcodone/ACETAMINOPHEN) PO PRN ×2 (13:22→18:15)
[2021-01-16 14:00] VITALS: BP 124/66
--- NOTE | 2021-01-16 19:35 | IPNPDOC ---
Date Seen The patient was seen on 01/16/21. Progress Note Subjective: Pain and erythema continues to improve in suprapubic region. Wound draining occasionally. Cx -MRSA. Denies chest pain, shortness of breath, fever, chills, abdominal pain, nausea, vomiting, problems with urination and bowel movements. Objective: Physical Examination VS: Please see below General: Lying in bed, no acute distress Head/Neck/Throat: Trachea midline, mucous membranes moist Eyes: Sclera anicteric, no erythema or discharge appreciated bilaterally Thorax: Normal respiratory effort on room air, lungs clear to auscultation bilaterally, no wheezes/rales/rhonchi Cardiovascular: Normal rate, regular rhythm, normal S1, S2; no S3, S4, rubs/gallops/murmurs Abdomen: Bowel sounds present, soft/nontender/nondistended Genitourinary: No CVA tenderness, no Eduardo in place Musculoskeletal: Moving all extremities, no edema Skin: Decreasing suprapubic region erythema/induration present, slightly warm and pink over area of concern. Draining area on top of induration decreased . Neurologic: AAOx3, speech fluent and goal-directed, no focal deficits, grossly intact Imaging: Suprapubic US: no abscess Labs: Please see below Micro: Groin wound culture: MRSA BCx NG x 2 Assessment /Plan: #Abdominal/groin MRSA cellulitis, resolved sepsis -01/14/21 expressed pus from area of cellulitis, US neg for abscess -Wound cx-MRSA, repeat BCx NG -Continue w/ vancomycin for now until redness, swelling and warmth further improve then will transition to PO for discharge -F/u daily labs #COVID 19 infection -Saturating at 98% on room air -We will continue to monitor pulse ox. #COPD -Continue Symbicort and Combivent as needed #Bacteremia, likely contaminant -1 bottle of blood cultures is positive for Kocuria Kristinae. -Repeat blood cultures no growth thus far, suspect contaminant #DVT prophylaxis -heparin subcu RESOLVED: SEPSIS IV infiltrate of right hand-resolved DISPOSITION: Currently inpatient. Plan is home when appropriate for d/c VS, I&O, 24H, Fishbone Vital Signs/I&O Vital Signs Date Time Temp Pulse Resp B/P (MAP) Pulse Ox O2 Delivery O2 Flow Rate FiO2 01/16/21 18:55 18 01/16/21 14:00 98.2 80 124/66 (85) 95 Room Air I&O- Last 24 Hours up to 6 AM 01/16/21 06:00 Intake Total 1495 ml Output Total 1400 ml Balance 95 ml Laboratory Data 24H LABS Laboratory Tests 2 01/16/21 07:15: Nucleated Red Blood Cells % (auto) 0.0, Erythrocyte Sedimentation Rate 52H, Anion Gap 3L, Glomerular Filtration Rate > 60.0, Calcium Level 7.9L, Total Bilirubin 0.3, Aspartate Amino Transf (AST/SGOT) 68H, Alanine Aminotransferase (ALT/SGPT) 56, Alkaline Phosphatase 81, C-Reactive Protein, Quantitative 2.70H, Total Protein 5.9L, Albumin 2.2L, Albumin/Globulin Ratio 0.6L CBC/BMP Laboratory Tests 01/16/21 07:15 Microbiology Microbiology 01/14/21 Gram Stain - Final, Complete 01/14/21 Wound Culture - Final, Complete Staph.aureus Methicillin Resis 01/13/21 Blood Culture - Preliminary, Resulted No Growth after 72 hours. All specime... 01/13/21 Blood Culture - Preliminary, Resulted No Growth after 72 hours. All specime... 01/10/21 Respiratory Virus Panel (PCR) ([facility]) - Final, Complete SARS-CoV-2 (COVID 19) 01/10/21 Blood Culture - Final, Complete NO GROWTH AFTER 5 DAYS 01/10/21 Blood Culture - Final, Complete Isabell Soto MD Jan 16, 2021 19:35
[2021-01-16] MEDS: BENZONATATE 100MG CAPSULE PO PRN (21:27)
[2021-01-16 22:00] VITALS: BP 121/62
[2021-01-17] MEDS: NORCO, ANEXSIA 5/325MG TABLET (HYDROcodone/ACETAMINOPHEN) PO PRN ×4 (02:08→20:52)
[2021-01-17] MEDS: MOM 30ML SUSPENSION UDC PO PRN (04:34)
[2021-01-17] MEDS: VANCOMYCIN HCL 750 MG, VIAL MATE ADAPTER 1 EACH in NS 250 ML IV SCH ×4 (04:35→19:27)
[2021-01-17 06:00] VITALS: BP 121/65
[2021-01-17] MEDS: LEVOTHYROXINE 112MCG TABLET (0.112MG) PO SCH (06:08)
[2021-01-17] MEDS: BACLOFEN 10 MG TAB PO SCH ×3 (06:08→20:50)
[2021-01-17] MEDS: HEPARIN SOD (PORCINE) 5000UNITS/ML 1ML VIAL/SYRINGE SC SCH ×3 (06:08→20:50)
[2021-01-17] MEDS: BENZONATATE 100MG CAPSULE PO PRN ×2 (06:20→14:42)
[2021-01-17] MEDS: SYMBICORT 80/4.5MCG INHALER 6GM INH SCH ×2 (07:53→20:00)
[2021-01-17 08:53] LABS: HEMATOCRIT 35.3 % (36.0-47.0); HEMOGLOBIN 11.4 g/dl (12.0-15.5); MEAN CORPUSCULAR HGB CONC 32.3 g/dl (32.0-36.5); MEAN CORPUSCULAR VOLUME 92.9 fl (80.0-96.0); PLATELET COUNT, AUTOMATED 203 10^3/uL (150-450); WHITE BLOOD COUNT 7.2 10^3/uL (4.0-10.0)
[2021-01-17 09:07] LABS: ALBUMIN 2.5 GM/DL (3.2-5.2); ALT/SGPT 54 U/L (12-78); BILIRUBIN,TOTAL 0.3 MG/DL (0.2-1.0); BLOOD UREA NITROGEN 9 MG/DL (7-18); CALCIUM LEVEL 8.3 MG/DL (8.5-10.1); CARBON DIOXIDE LEVEL 28 MEQ/L (21-32); CHLORIDE LEVEL 109 MEQ/L (98-107); CREATININE FOR GFR 0.75 MG/DL (0.55-1.30); GLOMERULAR FILTRATION RATE > 60.0 (>51); GLUCOSE, FASTING 80 MG/DL (70-100); POTASSIUM SERUM 3.9 MEQ/L (3.5-5.1); SODIUM LEVEL 140 MEQ/L (136-145); TOTAL PROTEIN 6.6 GM/DL (6.4-8.2)
[2021-01-17] MEDS: PRAVASTATIN 20 MG TAB PO SCH (09:46)
[2021-01-17] MEDS: FENOFIBRATE 145MG TABLET (TRICOR) PO SCH (09:46)
[2021-01-17] MEDS: PREGABALIN 75 MG CAP(LYRICA) PO SCH ×2 (09:46→20:50)
[2021-01-17] MEDS: PANTOPRAZOLE 40MG TAB (PROTONIX) PO SCH ×2 (09:47→20:50)
[2021-01-17] MEDS: AZELASTINE 137MCG NASAL SPY 30 ML (ASTELIN) SCH ×2 (09:48→20:51)
[2021-01-17] MEDS ORDERED: ISOVUE-370 76% 100ML VIAL As Ordered ONE (11:58)
--- NOTE | 2021-01-17 12:35 | REP ---
INDICATION: r/o suprapubic abscess. COMPARISON: 07/21/2013 TECHNIQUE: Axial contrast-enhanced images from the lung bases to the pubic symphysis using 100 cc Isovue 370 intravenous contrast material. Coronal and sagittal reformations obtained along with metallic artifact reduction images through the pelvis. This CT examination was performed using the following dose reduction techniques: Automated exposure control, adjustment of mA and/or kv according to the patient's size, and the use of iterative reconstruction technique. FINDINGS: Lung bases demonstrate patchy infiltrates in the lingula and left lower lobe and smaller areas of opacity in the medial right lung suggesting multifocal pneumonia. Liver demonstrates fatty infiltration without focal hepatic lesion. Spleen, pancreas, gallbladder, bilateral adrenal glands and kidneys are essentially normal. The enteric system is without obstruction or acute inflammatory process. Normal terminal ileum and appendix identified in the right lower quadrant. Scattered colonic and sigmoid diverticulosis noted without acute diverticulitis.. Pelvis demonstrates collapsed bladder and evidence for prior hysterectomy. Trace free fluid in the posterior cul-de-sac is nonspecific. No ascites. No free air. No intraperitoneal or retroperitoneal adenopathy. Abdominal aorta and vasculature appear normal. Skeletal structures demonstrate degenerative changes along with lumbar laminectomy and posterior fixation. There is no evidence for abscess. Subcutaneous tissues demonstrate scattered foci of gas and elements of fat stranding as well as a small area of fluid/granulomatous tissue along the right lateral anterior abdominopelvic wall (series 301; images 18-26). Findings should be correlated with physical examination and history and may represent injection sites. IMPRESSION: No acute abdominopelvic pathology appreciated. Hepatosteatosis. Diverticulosis. Scattered foci of gas and possible granulation tissue in the anterior subcutaneous tissues as described above may be related to multiple injection sites. <Electronically signed by Hilario Guo > 01/17/21 1234
[2021-01-17 14:00] VITALS: BP 136/81
--- NOTE | 2021-01-17 18:31 | IPNPDOC ---
Date Seen The patient was seen on 01/17/21. Progress Note Subjective: Fevers overnight, CT abd with contrast neg for abscess. Repeated blood cultures and UA. No increased respiratory symptoms. Denies chest pain, shortness of breath, fever, chills, abdominal pain, nausea, vomiting. Objective: Physical Examination VS: Please see below General: Lying in bed, no acute distress Head/Neck/Throat: Trachea midline, mucous membranes moist Eyes: Sclera anicteric, no erythema or discharge appreciated bilaterally Thorax: Normal respiratory effort on room air, lungs clear to auscultation bilaterally, no wheezes/rales/rhonchi Cardiovascular: Normal rate, regular rhythm, normal S1, S2; no S3, S4, rubs/gallops/murmurs Abdomen: Bowel sounds present, soft/nontender/nondistended Genitourinary: No CVA tenderness, no Eduardo in place Musculoskeletal: Moving all extremities, no edema Skin: Suprapubic region erythema/induration present, slightly warm and pink over area of concern. Draining area on top of induration decreased . Neurologic: AAOx3, speech fluent and goal-directed, no focal deficits, grossly intact Imaging: Suprapubic US: no abscess Labs: Please see below Micro: Groin wound culture: MRSA BCx NG x 2 from admission repeat BCx pending UA neg Assessment /Plan: #Abdominal/groin MRSA cellulitis, resolved sepsis -01/14/21 expressed pus from area of cellulitis, US neg for abscess -CT abd with contrast neg for abscess after she spiked fevers over night -WBC wnl with inflamm. markers improving -Wound cx-MRSA, repeat BCx today -Continue w/ vancomycin for now until redness, swelling and warmth further improve then will transition to PO for discharge -F/u daily labs #COVID 19 infection -Saturating at 98% on room air -CT abd showed some concern for PNA; however, with no respiratory symptoms will only watch at this time -We will continue to monitor pulse ox. #COPD -Continue Symbicort and Combivent as needed #Bacteremia, likely contaminant -1 bottle of blood cultures is positive for Kocuria Kristinae. -Repeat blood cultures no growth thus far, suspect contaminant #DVT prophylaxis -heparin subcu RESOLVED: SEPSIS IV infiltrate of right hand-resolved DISPOSITION: Currently inpatient. Plan is home when appropriate for d/c VS, I&O, 24H, Formerly [facility], 1928–1983 Vital Signs/I&O Vital Signs Date Time Temp Pulse Resp B/P (MAP) Pulse Ox O2 Delivery O2 Flow Rate FiO2 01/17/21 15:13 17 01/17/21 14:00 100.0 95 136/81 (99) 92 Room Air I&O- Last 24 Hours up to 6 AM 01/17/21 06:00 Intake Total 2440 ml Output Total 2100 ml Balance 340 ml Laboratory Data 24H LABS Laboratory Tests 2 01/17/21 08:09: Nucleated Red Blood Cells % (auto) 0.0, Anion Gap 3L, Glomerular Filtration Rate > 60.0, Calcium Level 8.3L, Total Bilirubin 0.3, Aspartate Amino Transf (AST/SGOT) 72H, Alanine Aminotransferase (ALT/SGPT) 54, Alkaline Phosphatase 91, Total Protein 6.6, Albumin 2.5L, Albumin/Globulin Ratio 0.6L 01/17/21 10:03: Urine Color YELLOW, Urine Appearance CLEAR, Urine pH 7.0, Urine Specific [place] 1.013, Urine Protein NEGATIVE, Urine Glucose (UA) NEGATIVE, Urine Ketones NEGATIVE, Urine Blood NEGATIVE, Urine Nitrite NEGATIVE, Urine Bilirubin NEGATIVE , Urine Urobilinogen 0.2, Urine Leukocyte Esterase NEGATIVE, Urine WBC (Auto) 0, Urine RBC (Auto) 0, Urine Hyaline Casts (Auto) 0, Urine Bacteria (Auto) NEGATIVE, Urine Squamous Epithelial Cells 2, Urine Mucus (Auto) SMALL, Urine Sperm (Auto) 01/17/21 17:06: Vancomycin Level Trough 14.6 CBC/BMP Laboratory Tests 01/17/21 08:09 Microbiology Microbiology 01/17/21 Blood Culture, Received Pending 01/14/21 Gram Stain - Final, Complete 01/14/21 Wound Culture - Final, Complete Staph.aureus Methicillin Resis 01/13/21 Blood Culture - Preliminary, Resulted No Growth after 72 hours. All specime... 01/13/21 Blood Culture - Preliminary, Resulted No Growth after 72 hours. All specime... 01/10/21 Respiratory Virus Panel (PCR) ([facility]) - Final, Complete SARS-CoV-2 (COVID 19) 01/10/21 Blood Culture - Final, Complete NO GROWTH AFTER 5 DAYS 01/10/21 Blood Culture - Final, Complete Isabell Soto MD Jan 17, 2021 18:31
[2021-01-17] MEDS: traZODone 100 MG TAB PO PRN (20:50)
[2021-01-18] MEDS: HEPARIN SOD (PORCINE) 5000UNITS/ML 1ML VIAL/SYRINGE SC SCH ×3 (05:49→20:15)
[2021-01-18] MEDS: BACLOFEN 10 MG TAB PO SCH ×3 (05:50→20:15)
[2021-01-18] MEDS: LEVOTHYROXINE 112MCG TABLET (0.112MG) PO SCH (05:50)
[2021-01-18] MEDS: VANCOMYCIN HCL 750 MG, VIAL MATE ADAPTER 1 EACH in NS 250 ML IV SCH ×4 (05:50→18:45)
[2021-01-18] MEDS: BENZONATATE 100MG CAPSULE PO PRN ×3 (06:00→23:20)
[2021-01-18] MEDS: NORCO, ANEXSIA 5/325MG TABLET (HYDROcodone/ACETAMINOPHEN) PO PRN ×4 (06:01→23:18)
[2021-01-18] MEDS: SYMBICORT 80/4.5MCG INHALER 6GM INH SCH ×2 (07:36→18:37)
[2021-01-18 08:08] VITALS: BP 86/62
[2021-01-18] MEDS: PANTOPRAZOLE 40MG TAB (PROTONIX) PO SCH ×2 (08:27→20:15)
[2021-01-18] MEDS: PRAVASTATIN 20 MG TAB PO SCH (08:27)
[2021-01-18] MEDS: FENOFIBRATE 145MG TABLET (TRICOR) PO SCH (08:27)
[2021-01-18] MEDS: PREGABALIN 75 MG CAP(LYRICA) PO SCH ×2 (08:27→20:15)
[2021-01-18] MEDS: AZELASTINE 137MCG NASAL SPY 30 ML (ASTELIN) SCH ×2 (08:28→20:16)
[2021-01-18 08:34] VITALS: BP 107/51
[2021-01-18 08:38] LABS: HEMATOCRIT 35.2 % (36.0-47.0); HEMOGLOBIN 11.4 g/dl (12.0-15.5); MEAN CORPUSCULAR HEMOGLOBIN 30.4 pg (27.0-33.0); MEAN CORPUSCULAR HGB CONC 32.4 g/dl (32.0-36.5); MEAN CORPUSCULAR VOLUME 93.9 fl (80.0-96.0); PLATELET COUNT, AUTOMATED 216 10^3/uL (150-450); RED BLOOD COUNT 3.75 10^6/uL (4.00-5.40); WHITE BLOOD COUNT 6.7 10^3/uL (4.0-10.0)
[2021-01-18 09:07] LABS: ALBUMIN 2.4 GM/DL (3.2-5.2); ALT/SGPT 48 U/L (12-78); BILIRUBIN,TOTAL 0.3 MG/DL (0.2-1.0); BLOOD UREA NITROGEN 10 MG/DL (7-18); CALCIUM LEVEL 8.4 MG/DL (8.5-10.1); CARBON DIOXIDE LEVEL 27 MEQ/L (21-32); CHLORIDE LEVEL 108 MEQ/L (98-107); CREATININE FOR GFR 0.76 MG/DL (0.55-1.30); GLOMERULAR FILTRATION RATE > 60.0 (>51); GLUCOSE, FASTING 87 MG/DL (70-100); POTASSIUM SERUM 4.1 MEQ/L (3.5-5.1); SODIUM LEVEL 140 MEQ/L (136-145); TOTAL PROTEIN 6.6 GM/DL (6.4-8.2)
[2021-01-18] MEDS ORDERED: LIDOCAINE 1% MDV 20ML VIAL As Ordered ONE (12:23)
[2021-01-18 14:00] VITALS: BP 100/54
--- NOTE | 2021-01-18 16:16 | REP ---
PROCEDURE NAME: PICC LINE INSERTION W/SITERITE CLINICAL INFORMATION: no vacular access. COMPARISON: None. PROCEDURE DESCRIPTION: The procedure was performed by DEMETRIUS Penaloza, under the direct supervision of Dr. Jimenez. The risks and benefits of the procedure were explained to the patient and an informed consent was obtained verbally as the patient is currently COVID positive. Directly prior to the start of the procedure a formal time-out was completed at the patient's bedside. The right basilic vein was localized using ultrasound guidance. The skin was prepped and draped in sterile fashion. One mL of 1% lidocaine 10 mg/mL was used as a local anesthetic. Using ultrasound guidance the right basilic vein was cannulated, and a 0.018 guidewire was inserted and advanced to the level of SVC using fluoroscopic guidance. The needle was removed and a 5.5 Hungarian dilator and peel-away sheath was inserted over the guidewire. A 5.5 Hungarian dual lumen catheter was cut to a length of 35 cm. The dilator was removed and the catheter was inserted over the guidewire with the tip ending at the level of the SVC. The peel-away sheath was removed and the catheter was flushed with heparinized saline as per hospital protocol. The catheter was affixed to the skin and a sterile dressing was applied. The patient tolerated the procedure well and there were no immediate complications. CONCLUSION: PICC line insertion into the right basilic vein. Imaging for this exam was obtained by serial portable chest x-rays. No fluoroscopy was utilized. <Electronically signed by Chiara Messina > 01/18/21 1535 <Electronically signed by Larry Jimenez > 01/18/21 1612
--- NOTE | 2021-01-18 17:57 | IPNPDOC ---
Date Seen The patient was seen on 01/18/21. Progress Note Subjective: Spiked 100.4F temp today despite Vancomycin IV, CT neg for abscess . Repeat BCX pending, f/u CXR and procal. Increased crackles and some wheezing right lung. + cough. Denies chest pain, shortness of breath, fever, chills, abdominal pain, nausea, vomiting. Objective: Physical Examination VS: Please see below General: Lying in bed, no acute distress Head/Neck/Throat: Trachea midline, mucous membranes moist Eyes: Sclera anicteric, no erythema or discharge appreciated bilaterally Thorax: Normal respiratory effort on room air, mild wheezing right upper and mid lung, mild crackles Cardiovascular: Normal rate, regular rhythm, normal S1, S2; no S3, S4, rubs/gallops/murmurs Abdomen: Bowel sounds present, soft/nontender/nondistended Genitourinary: No CVA tenderness, no Eduardo in place Musculoskeletal: Moving all extremities, no edema Skin: Suprapubic region erythema/induration present, slightly warm and pink over area of concern still. Draining area on top of induration still present Neurologic: AAOx3, speech fluent and goal-directed, no focal deficits, grossly intact Imaging: Suprapubic US: no abscess CXR: ordered Labs: Please see below Micro: Groin wound culture: MRSA BCx NG x 2 from admission repeat BCx pending UA neg Assessment /Plan: #Fevers despite IV abx -Could be 2/2 to known abd/groin MRSA infection vs. developing COVID pna -intermittent tachycardia -C/w vancomycin for now -F/u CXR, procalcitonin #Abdominal/groin MRSA cellulitis, resolved sepsis -01/14/21 expressed pus from area of cellulitis, US neg for abscess -CT abd with contrast neg for abscess after she spiked fevers over night -WBC wnl with inflamm. markers improving -Wound cx-MRSA, repeat BCx pending -Continue w/ vancomycin for now until redness, swelling and warmth further improve then will transition to PO for discharge -F/u daily labs #COVID 19 infection -Saturating at 98% on room air -CT abd showed some concern for PNA -F/u repeat CXR -F/u procalcitonin -We will continue to monitor pulse ox. #COPD -Not in exacerbation -Continue Symbicort and Combivent as needed #Bacteremia, likely contaminant -1 bottle of blood cultures is positive for Kylah Mercer. -Repeat blood cultures no growth thus far, suspect contaminant #DVT prophylaxis -heparin subcu RESOLVED: SEPSIS IV infiltrate of right hand-resolved DISPOSITION: Currently inpatient. Plan is home when appropriate for d/c VS, I&O, 24H, Fishbone Vital Signs/I&O Vital Signs Date Time Temp Pulse Resp B/P (MAP) Pulse Ox O2 Delivery O2 Flow Rate FiO2 01/18/21 17:35 17 Room Air 01/18/21 14:00 100.4 97 100/54 (69) 92 I&O- Last 24 Hours up to 6 AM 01/18/21 06:00 Intake Total 580 ml Output Total 1050 ml Balance -470 ml Laboratory Data 24H LABS Laboratory Tests 2 01/18/21 08:15: Nucleated Red Blood Cells % (auto) 0.0, Anion Gap 5L, Glomerular Filtration Rate > 60.0, Calcium Level 8.4L, Total Bilirubin 0.3, Aspartate Amino Transf (AST/SGOT) 70H, Alanine Aminotransferase (ALT/SGPT) 48, Alkaline Phosphatase 89, Total Protein 6.6, Albumin 2.4L, Albumin/Globulin Ratio 0.6L CBC/BMP Laboratory Tests 01/18/21 08:15 Microbiology Microbiology 01/18/21 Blood Culture, Received Pending 01/17/21 Blood Culture - Preliminary, Resulted No growth after 24 hours . All specim... 01/14/21 Gram Stain - Final, Complete 01/14/21 Wound Culture - Final, Complete Staph.aureus Methicillin Resis 01/13/21 Blood Culture - Final, Complete NO GROWTH AFTER 5 DAYS 01/13/21 Blood Culture - Final, Complete NO GROWTH AFTER 5 DAYS 01/10/21 Respiratory Virus Panel (PCR) ([facility]) - Final, Complete SARS-CoV-2 (COVID 19) 01/10/21 Blood Culture - Final, Complete NO GROWTH AFTER 5 DAYS 01/10/21 Blood Culture - Final, Complete Isabell Soto MD Jan 18, 2021 17:57
[2021-01-18] MEDS: SODIUM CHLORIDE 0.9% INJ 10 ML SYR IV SCH (18:45)
--- NOTE | 2021-01-18 18:45 | REP ---
INDICATION: r/o PNA COMPARISON: 01/10/2021 TECHNIQUE: Portable AP view of the chest FINDINGS: The mediastinum and cardiac silhouette are stable and within normal limits for portable technique. The lung collier demonstrate subtle bilateral opacities consistent with multifocal pneumonia. Skeletal structures are intact. IMPRESSION: Multifocal pneumonia suspected <Electronically signed by Hilario Guo > 01/18/21 [id number]
[2021-01-18] MEDS: SODIUM CHLORIDE 0.9% INJ 10 ML SYR IV PRN (20:14)
[2021-01-18 22:00] VITALS: BP 115/57
[2021-01-18] MEDS: traZODone 100 MG TAB PO PRN (23:17)
[2021-01-19] MEDS: VANCOMYCIN HCL 750 MG, VIAL MATE ADAPTER 1 EACH in NS 250 ML IV SCH ×4 (04:58→18:42)
[2021-01-19] MEDS: NORCO, ANEXSIA 5/325MG TABLET (HYDROcodone/ACETAMINOPHEN) PO PRN ×4 (04:58→21:31)
[2021-01-19 05:05] VITALS: BP 111/53
[2021-01-19] MEDS: SODIUM CHLORIDE 0.9% INJ 10 ML SYR IV SCH ×2 (06:27→18:42)
[2021-01-19] MEDS: HEPARIN SOD (PORCINE) 5000UNITS/ML 1ML VIAL/SYRINGE SC SCH ×3 (06:28→21:31)
[2021-01-19] MEDS: BACLOFEN 10 MG TAB PO SCH ×3 (06:28→21:30)
[2021-01-19] MEDS: LEVOTHYROXINE 112MCG TABLET (0.112MG) PO SCH (06:28)
[2021-01-19] MEDS: BENZONATATE 100MG CAPSULE PO PRN ×2 (06:28→21:45)
[2021-01-19 07:56] LABS: HEMATOCRIT 33.1 % (36.0-47.0); HEMOGLOBIN 10.8 g/dl (12.0-15.5); MEAN CORPUSCULAR HEMOGLOBIN 30.4 pg (27.0-33.0); MEAN CORPUSCULAR HGB CONC 32.6 g/dl (32.0-36.5); MEAN CORPUSCULAR VOLUME 93.2 fl (80.0-96.0); PLATELET COUNT, AUTOMATED 221 10^3/uL (150-450); RED BLOOD COUNT 3.55 10^6/uL (4.00-5.40)
[2021-01-19] MEDS: SYMBICORT 80/4.5MCG INHALER 6GM INH SCH ×2 (08:12→19:38)
[2021-01-19 08:29] LABS: ALBUMIN 2.3 GM/DL (3.2-5.2); ALT/SGPT 40 U/L (12-78); BILIRUBIN,TOTAL 0.4 MG/DL (0.2-1.0); BLOOD UREA NITROGEN 9 MG/DL (7-18); CALCIUM LEVEL 8.4 MG/DL (8.5-10.1); CARBON DIOXIDE LEVEL 27 MEQ/L (21-32); CHLORIDE LEVEL 108 MEQ/L (98-107); CREATININE FOR GFR 0.73 MG/DL (0.55-1.30); GLOMERULAR FILTRATION RATE > 60.0 (>51); GLUCOSE, FASTING 123 MG/DL (70-100); POTASSIUM SERUM 3.7 MEQ/L (3.5-5.1); SODIUM LEVEL 140 MEQ/L (136-145)
[2021-01-19] MEDS ORDERED: ALBUTEROL 90 MCG/ACT 8GM HFA INHALER INH PRN (09:15)
[2021-01-19] MEDS: PANTOPRAZOLE 40MG TAB (PROTONIX) PO SCH ×2 (09:36→21:30)
[2021-01-19] MEDS: PRAVASTATIN 20 MG TAB PO SCH (09:36)
[2021-01-19] MEDS: FENOFIBRATE 145MG TABLET (TRICOR) PO SCH (09:36)
[2021-01-19] MEDS: PREGABALIN 75 MG CAP(LYRICA) PO SCH ×2 (09:36→21:29)
[2021-01-19] MEDS: COMBIVENT RESPIMAT 100-20MCG INHALER 4GM INH SCH ×5 (09:36→23:53)
[2021-01-19] MEDS: AZELASTINE 137MCG NASAL SPY 30 ML (ASTELIN) SCH ×2 (09:37→21:32)
[2021-01-19] MEDS: ACETAMINOPHEN TAB 650MG DOSE (2X325MG) PO PRN ×2 (11:29→21:46)
[2021-01-19] MEDS: guaiFENesin SYRUP 200 MG/10 ML UDC PO PRN ×2 (11:29→21:45)
[2021-01-19 14:00] VITALS: BP 101/46
--- NOTE | 2021-01-19 18:08 | IPNPDOC ---
Date Seen The patient was seen on 01/19/21. Progress Note Subjective: No fevers since 01/18/21. CXR: MF PNa suspected, procal pending. adjusted inhalers. Continued SOB. Denies chest pain, shortness of breath, fever, chills, abdominal pain, nausea, vomiting. Objective: Physical Examination VS: Please see below General: Lying in bed, no acute distress Head/Neck/Throat: Trachea midline, mucous membranes moist Eyes: Sclera anicteric, no erythema or discharge appreciated bilaterally Thorax: Normal respiratory effort on room air, mild wheezing right upper and mid lung, mild crackles Cardiovascular: Normal rate, regular rhythm, normal S1, S2; no S3, S4, rubs/gallops/murmurs Abdomen: Bowel sounds present, soft/nontender/nondistended Genitourinary: No CVA tenderness, no Eduardo in place Musculoskeletal: Moving all extremities, no edema Skin: Suprapubic region erythema/induration present, slightly warm and pink over area of concern still. Draining area on top of induration still present Neurologic: AAOx3, speech fluent and goal-directed, no focal deficits, grossly intact Imaging: Suprapubic US: no abscess CXR: MF pneumonia suspected Labs: Please see below Micro: Groin wound culture: MRSA BCx NG x 2 from admission repeat BCx NG UA neg Sputum cx: pending Assessment /Plan: #Fevers despite IV abx -Could be 2/2 to known abd/groin MRSA infection vs. developing COVID pna -intermittent tachycardia, CXR above -C/w vancomycin for now -F/u procalcitonin, sputum culture. If procalcitonin elevated, add additional abx #Abdominal/groin MRSA cellulitis, resolved sepsis -01/14/21 expressed pus from area of cellulitis, US neg for abscess -CT abd with contrast neg for abscess after she spiked fevers over night -WBC wnl with inflamm. markers improving -Wound cx-MRSA, repeat BCx pending -Continue w/ vancomycin for now until redness, swelling and warmth further improve then will transition to PO for discharge -F/u daily labs #COVID 19 infection -Saturating at 94% on room air, increased coughing and wheezing at times -CT abd showed some concern for PNA -F/u repeat CXR -F/u procalcitonin, sputum culture -We will continue to monitor pulse ox. #COPD -Not in exacerbation -current inhalers #Bacteremia, likely contaminant -1 bottle of blood cultures is positive for Kocuria Kristinae. -Repeat blood cultures no growth thus far, suspect contaminant #DVT prophylaxis -heparin subcu RESOLVED: SEPSIS IV infiltrate of right hand-resolved DISPOSITION: Currently inpatient. Plan is home when appropriate for d/c VS, I&O, 24H, Fishbone Vital Signs/I&O Vital Signs Date Time Temp Pulse Resp B/P (MAP) Pulse Ox O2 Delivery O2 Flow Rate FiO2 01/19/21 16:36 18 Room Air 01/19/21 14:00 98.9 83 101/46 (64 93 I&O- Last 24 Hours up to 6 AM 01/19/21 06:00 Intake Total 2835 ml Output Total 3200 ml Balance -365 ml Laboratory Data 24H LABS Laboratory Tests 2 01/18/21 18:29: 01/19/21 07:19: Nucleated Red Blood Cells % (auto) 0.0, Anion Gap 5L, Glomerular Filtration Rate > 60.0, Calcium Level 8.4L, Total Bilirubin 0.4, Aspartate Amino Transf (AST/SGOT) 56H, Alanine Aminotransferase (ALT/SGPT) 40, Alkaline Phosphatase 81, Total Protein 6.0L, Albumin 2.3L, Albumin/Globulin Ratio 0.6L 01/19/21 16:05: Vancomycin Level Trough 12.5 CBC/BMP Laboratory Tests 01/19/21 07:19 Microbiology Microbiology 01/19/21 Gram Stain, Received Pending 01/19/21 Sputum Culture, Received Pending 01/18/21 Blood Culture - Preliminary, Resulted No growth after 24 hours . All specim... 01/17/21 Blood Culture - Preliminary, Resulted No Growth after 48 hours. All Specime... 01/14/21 Gram Stain - Final, Complete 01/14/21 Wound Culture - Final, Complete Staph.aureus Methicillin Resis 01/13/21 Blood Culture - Final, Complete NO GROWTH AFTER 5 DAYS 01/13/21 Blood Culture - Final, Complete NO GROWTH AFTER 5 DAYS 01/10/21 Respiratory Virus Panel (PCR) ([facility]) - Final, Complete SARS-CoV-2 (COVID 19) 01/10/21 Blood Culture - Final, Complete NO GROWTH AFTER 5 DAYS 01/10/21 Blood Culture - Final, Complete Isabell Soto MD Jan 19, 2021 18:08
[2021-01-19 20:33] VITALS: BP 111/59
[2021-01-19] MEDS: traZODone 100 MG TAB PO PRN (21:45)
[2021-01-20] MEDS: COMBIVENT RESPIMAT 100-20MCG INHALER 4GM INH SCH ×6 (03:47→23:40)
[2021-01-20 04:00] VITALS: BP 122/68
[2021-01-20] MEDS: VANCOMYCIN HCL 750 MG, VIAL MATE ADAPTER 1 EACH in NS 250 ML IV SCH ×4 (04:56→19:00)
[2021-01-20] MEDS: BACLOFEN 10 MG TAB PO SCH ×3 (05:06→20:31)
[2021-01-20] MEDS: HEPARIN SOD (PORCINE) 5000UNITS/ML 1ML VIAL/SYRINGE SC SCH ×3 (05:07→20:31)
[2021-01-20] MEDS: NORCO, ANEXSIA 5/325MG TABLET (HYDROcodone/ACETAMINOPHEN) PO PRN ×4 (05:07→22:08)
[2021-01-20] MEDS: LEVOTHYROXINE 112MCG TABLET (0.112MG) PO SCH (05:07)
[2021-01-20] MEDS: SODIUM CHLORIDE 0.9% INJ 10 ML SYR IV SCH ×2 (05:07→18:04)
[2021-01-20] MEDS: ACETAMINOPHEN TAB 650MG DOSE (2X325MG) PO PRN ×2 (06:28→13:48)
[2021-01-20] MEDS: SODIUM CHLORIDE 0.9% INJ 10 ML SYR IV PRN ×2 (08:20→20:32)
[2021-01-20] MEDS: PRAVASTATIN 20 MG TAB PO SCH (08:21)
[2021-01-20] MEDS: FENOFIBRATE 145MG TABLET (TRICOR) PO SCH (08:21)
[2021-01-20] MEDS: PANTOPRAZOLE 40MG TAB (PROTONIX) PO SCH ×2 (08:21→20:31)
[2021-01-20] MEDS: PREGABALIN 75 MG CAP(LYRICA) PO SCH ×2 (08:21→20:31)
[2021-01-20] MEDS: AZELASTINE 137MCG NASAL SPY 30 ML (ASTELIN) SCH ×2 (08:22→20:32)
[2021-01-20 08:29] LABS: HEMATOCRIT 32.8 % (36.0-47.0); HEMOGLOBIN 10.8 g/dl (12.0-15.5); MEAN CORPUSCULAR HEMOGLOBIN 30.5 pg (27.0-33.0); MEAN CORPUSCULAR HGB CONC 32.9 g/dl (32.0-36.5); MEAN CORPUSCULAR VOLUME 92.7 fl (80.0-96.0); PLATELET COUNT, AUTOMATED 239 10^3/uL (150-450); RED BLOOD COUNT 3.54 10^6/uL (4.00-5.40); WHITE BLOOD COUNT 7.9 10^3/uL (4.0-10.0)
[2021-01-20] MEDS: SYMBICORT 80/4.5MCG INHALER 6GM INH SCH ×2 (08:36→19:30)
[2021-01-20 08:57] LABS: ALBUMIN 2.4 GM/DL (3.2-5.2); ALT/SGPT 33 U/L (12-78); BILIRUBIN,TOTAL 0.5 MG/DL (0.2-1.0); BLOOD UREA NITROGEN 9 MG/DL (7-18); CARBON DIOXIDE LEVEL 24 MEQ/L (21-32); CHLORIDE LEVEL 109 MEQ/L (98-107); CREATININE FOR GFR 0.61 MG/DL (0.55-1.30); GLOMERULAR FILTRATION RATE > 60.0 (>51); GLUCOSE, FASTING 84 MG/DL (70-100); SODIUM LEVEL 140 MEQ/L (136-145)
[2021-01-20 14:00] VITALS: BP 118/56
--- NOTE | 2021-01-20 15:55 | IPNPDOC ---
Date Seen The patient was seen on 01/20/21. Progress Note Subjective: No fevers since 01/18/21. CXR: MF PNa suspected, procal pending. Adjusted inhalers with some mild improvement. Continued SOB. Denies chest pain, shortness of breath, fever, chills, abdominal pain, nausea, vomiting. Objective: Physical Examination VS: Please see below General: Lying in bed, no acute distress Head/Neck/Throat: Trachea midline, mucous membranes moist Eyes: Sclera anicteric, no erythema or discharge appreciated bilaterally Thorax: Normal respiratory effort on room air, mild wheezing right upper and mid lung, mild crackles Cardiovascular: Normal rate, regular rhythm, normal S1, S2; no S3, S4, rubs/gallops/murmurs Abdomen: Bowel sounds present, soft/nontender/nondistended Genitourinary: No CVA tenderness, no Eduardo in place Musculoskeletal: Moving all extremities, no edema Skin: Suprapubic region erythema/induration ,much improved, slightly warm and pink over area of concern still. Draining area on top of induration decreased Neurologic: AAOx3, speech fluent and goal-directed, no focal deficits, grossly intact Imaging: Suprapubic US: no abscess CXR: MF pneumonia suspected Labs: Please see below Micro: Groin wound culture: MRSA BCx NG x 2 from admission repeat BCx NG UA neg Sputum GS: QUALITY: GOOD MODERATE WBCS FEW EPITHELIAL CELLS MODERATE GRAM POSITIVE COCCI IN CLUSTERS AND CHAINS MODERATE GRAM POSITIVE RODS FEW GRAM NEGATIVE RODS Sputum CX pending Assessment /Plan: #Fevers despite IV abx -Could be 2/2 to known abd/groin MRSA infection vs. developing COVID pna -CXR above -C/w vancomycin for now -F/u procalcitonin (waiting on for several days, do not process on Thu-), sputum culture. If procalcitonin elevated, add additional abx #COVID 19 infection r/o superimposed PNA -Saturating at 94% on room air, increased coughing and wheezing at times -CXR above -Sputum GS above -F/u procalcitonin, sputum culture -We will continue to monitor pulse ox. #Abdominal/groin MRSA cellulitis -01/14/21 expressed pus from area of cellulitis, US neg for abscess -CT abd with contrast neg for abscess -WBC wnl with inflamm. markers improving -Wound cx-MRSA, repeat BCx pending -Continue w/ vancomycin for another 24 hours then, if still looks further improved with less redness, swelling and warmth, transition to PO for discharge -F/u daily labs #COPD -Not in exacerbation -current inhalers #Bacteremia, likely contaminant -1 bottle of blood cultures is positive for Kocuria Kristinae. -Repeat blood cultures no growth thus far, suspect contaminant #DVT prophylaxis -heparin subcu RESOLVED: SEPSIS IV infiltrate of right hand-resolved DISPOSITION: Currently inpatient. Plan is home when appropriate for d/c VS, I&O, 24H, [facility] Vital Signs/I&O Vital Signs Date Time Temp Pulse Resp B/P (MAP) Pulse Ox O2 Delivery O2 Flow Rate FiO2 01/20/21 13:47 18 Room Air 01/20/21 04:00 99.3 88 122/68 (86) 94 I&O- Last 24 Hours up to 6 AM 01/20/21 06:00 Intake Total 1600 ml Output Total 900 ml Balance 700 ml Laboratory Data 24H LABS Laboratory Tests 2 01/19/21 16:05: Vancomycin Level Trough 12.5 01/20/21 07:49: Nucleated Red Blood Cells % (auto) 0.0, Anion Gap 7L, Glomerular Filtration Rate > 60.0, Calcium Level 8.0L, Total Bilirubin 0.5, Aspartate Amino Transf (AST/SGOT) 41H, Alanine Aminotransferase (ALT/SGPT) 33, Alkaline Phosphatase 75, Total Protein 6.0L, Albumin 2.4L, Albumin/Globulin Ratio 0.7L CBC/BMP Laboratory Tests 01/20/21 07:49 Microbiology Microbiology 01/19/21 Gram Stain - Final, Resulted 01/19/21 Sputum Culture, Resulted Pending 01/18/21 Blood Culture - Preliminary, Resulted No Growth after 48 hours. All Specime... 01/17/21 Blood Culture - Preliminary, Resulted No Growth after 72 hours. All specime... 01/14/21 Gram Stain - Final, Complete 01/14/21 Wound Culture - Final, Complete Staph.aureus Methicillin Resis 01/13/21 Blood Culture - Final, Complete NO GROWTH AFTER 5 DAYS 01/13/21 Blood Culture - Final, Complete NO GROWTH AFTER 5 DAYS 01/10/21 Respiratory Virus Panel (PCR) ([facility]) - Final, Complete SARS-CoV-2 (COVID 19) 01/10/21 Blood Culture - Final, Complete NO GROWTH AFTER 5 DAYS 01/10/21 Blood Culture - Final, Complete Isabell Soto MD Jan 20, 2021 15:55
[2021-01-20 20:06] VITALS: BP 128/71
[2021-01-20] MEDS: BENZONATATE 100MG CAPSULE PO PRN (20:31)
[2021-01-20] MEDS: traZODone 100 MG TAB PO PRN (21:27)
[2021-01-21] MEDS: COMBIVENT RESPIMAT 100-20MCG INHALER 4GM INH SCH ×3 (03:30→11:57)
[2021-01-21 04:00] VITALS: BP 118/68
[2021-01-21] MEDS: NORCO, ANEXSIA 5/325MG TABLET (HYDROcodone/ACETAMINOPHEN) PO PRN (04:22)
[2021-01-21] MEDS: VANCOMYCIN HCL 750 MG, VIAL MATE ADAPTER 1 EACH in NS 250 ML IV SCH ×2 (04:22→05:39)
[2021-01-21] MEDS: BENZONATATE 100MG CAPSULE PO PRN (04:22)
[2021-01-21] MEDS: LEVOTHYROXINE 112MCG TABLET (0.112MG) PO SCH (05:34)
[2021-01-21] MEDS: BACLOFEN 10 MG TAB PO SCH (05:34)
[2021-01-21] MEDS: HEPARIN SOD (PORCINE) 5000UNITS/ML 1ML VIAL/SYRINGE SC SCH (05:35)
[2021-01-21] MEDS ORDERED: ACET1TAB55 PO (07:50)
[2021-01-21] MEDS ORDERED: COLA100C5 PO (07:50)
[2021-01-21] MEDS ORDERED: BENZ-18 PO (07:50)
[2021-01-21] MEDS ORDERED: PROB250C PO (07:50)
[2021-01-21] MEDS ORDERED: MIRA1POW3 PO (07:50)
[2021-01-21] MEDS ORDERED: BACTDSTA PO ×2 (07:50→07:53)
[2021-01-21] MEDS: SYMBICORT 80/4.5MCG INHALER 6GM INH SCH (08:17)
[2021-01-21] MEDS ORDERED: BACTRIM 160MG/800MG DS TAB PO SCH (09:00)
[2021-01-21] MEDS: PANTOPRAZOLE 40MG TAB (PROTONIX) PO SCH (09:16)
[2021-01-21] MEDS: SODIUM CHLORIDE 0.9% INJ 10 ML SYR IV SCH (09:16)
[2021-01-21] MEDS: PRAVASTATIN 20 MG TAB PO SCH (09:17)
[2021-01-21] MEDS: PREGABALIN 75 MG CAP(LYRICA) PO SCH (09:17)
[2021-01-21] MEDS: FENOFIBRATE 145MG TABLET (TRICOR) PO SCH (09:17)
[2021-01-21] MEDS: AZELASTINE 137MCG NASAL SPY 30 ML (ASTELIN) SCH (09:18)
[2021-01-21] MEDS: NYSTATIN 100,000 UNITS/GM TOPICAL PWD 15 GM TOP PRN (09:18)
[2021-01-21 09:22] VITALS: BP 124/58
[2021-01-21 10:22] LABS: HEMATOCRIT 33.3 % (36.0-47.0); HEMOGLOBIN 10.6 g/dl (12.0-15.5); MEAN CORPUSCULAR HEMOGLOBIN 29.6 pg (27.0-33.0); MEAN CORPUSCULAR HGB CONC 31.8 g/dl (32.0-36.5); PLATELET COUNT, AUTOMATED 271 10^3/uL (150-450); RED BLOOD COUNT 3.58 10^6/uL (4.00-5.40); WHITE BLOOD COUNT 6.5 10^3/uL (4.0-10.0)
[2021-01-21 10:55] LABS: ALBUMIN 2.5 GM/DL (3.2-5.2); ALT/SGPT 29 U/L (12-78); BILIRUBIN,TOTAL 0.5 MG/DL (0.2-1.0); BLOOD UREA NITROGEN 9 MG/DL (7-18); CALCIUM LEVEL 8.1 MG/DL (8.5-10.1); CARBON DIOXIDE LEVEL 24 MEQ/L (21-32); CHLORIDE LEVEL 108 MEQ/L (98-107); CREATININE FOR GFR 0.63 MG/DL (0.55-1.30); FERRITIN 1118 NG/ML (8-252); GLOMERULAR FILTRATION RATE > 60.0 (>51); GLUCOSE, FASTING 71 MG/DL (70-100); SODIUM LEVEL 139 MEQ/L (136-145); TOTAL PROTEIN 6.4 GM/DL (6.4-8.2)
--- NOTE | 2021-01-21 18:42 | DS.PDOC ---
Discharge Summary General Date of Admission Jan 11, 2021 at 00:38 Date of Discharge 01/21/21 Attending Physician: Isabell Askew MD Discharge Summary HISTORY OF PRESENT ILLNESS: 51-year-old female with a past medical history of COPD (not O2 dependent), GERD, hypercholesterolemia, hypothyroidism, seasonal allergies, presented to the ER with a 5-day history of subjective fevers chills cough generalized malaise as well as severe pain and redness of suprapubic skin. Patient denies any chest pain palpitation shortness of breath nausea vomiting or diarrhea. Patient states that her skin has been turning red very painful and tender to touch even with fabric rubbing along the suprapubic area. Patient is febrile Tmax 103F. WBC 13.1. Pelvic ultrasound of area of erythema over suprapubic region did not reveal an abscess. Found to be covid-19 positive. Saturating at 96% on RA. Pat ient will be admitted to hospitalist service for management of sepsis 2/2 cellulitis. HOSPITAL COURSE: Suprapubic indurated area was drained and culture was obtained. This later came back MRSA and the patient was on IV vancomycin. She continued to spike fevers for the course of her hospitalization despite stable inflammatory markers and decreasing redness in the abdomen. Her procalcitonin was low despite chest x-ray showing questionable pneumonia. Patient remained on room air and no treatment for Covid 19 was needed. By 01/21/2021 the patient's abdomen was markedly improved and she was transitioned to oral Bactrim. The decision was made to discharge home to follow up with primary care provider. PAST MEDICAL HISTORY: COPD GERD Seasonal allergies Hypothyroidism Hypercholesterolemia PAST SURGICAL HISTORY: Hysterectomy Back surgeries Bilateral hip replaced Hysterectomy, tubal ligation Tonsillectomy SOCIAL HISTORY: Active smoker Denies alcohol use Denies illicit drug FAMILY HISTORY: Reviewed with patient no pertinent family history was provided ALLERGIES: Please see below. DISCHARGE MEDS: Please see below Physical Examination VS: Please see below General: Lying in bed, no acute distress Head/Neck/Throat: Trachea midline, mucous membranes moist Eyes: Sclera anicteric, no erythema or discharge appreciated bilaterally Thorax: Normal respiratory effort on room air, mild wheezing right upper and mid lung, mild crackles Cardiovascular: Normal rate, regular rhythm, normal S1, S2; no S3, S4, rubs/gallops/murmurs Abdomen: Bowel sounds present, soft/nontender/nondistended Genitourinary: No CVA tenderness, no Eduardo in place Musculoskeletal: Moving all extremities, no edema Skin: Suprapubic region erythema/induration ,much improved, slightly warm and pink over area of concern still. Draining area on top of induration decreased Neurologic: AAOx3, speech fluent and goal-directed, no focal deficits, grossly intact Imaging: Suprapubic US: no abscess CXR: MF pneumonia suspected Labs: Please see below Micro: Groin wound culture: MRSA BCx NG x 2 from admission repeat BCx NG UA neg Sputum GS: QUALITY: GOOD MODERATE WBCS FEW EPITHELIAL CELLS MODERATE GRAM POSITIVE COCCI IN CLUSTERS AND CHAINS MODERATE GRAM POSITIVE RODS FEW GRAM NEGATIVE RODS Sputum CX pending Assessment /Plan: #Abdominal/groin MRSA cellulitis- much improved -01/14/21 expressed pus from area of cellulitis, US neg for abscess -CT abd with contrast neg for abscess -WBC wnl with inflamm. markers improving -Wound cx-MRSA, repeat BCx NG -S/p vancomycin, d/c with PO bactrim. -F/u with PCP #Fevers despite IV abx likely 2/2 to COVID 19 infection -abdomen continues to improve daily with no COVID PNA suspected with low procal #COVID 19 infection -Saturating at 94% on room air -Stable -CXR above #COPD -Not in exacerbation -current inhalers #Bacteremia, likely contaminant -1 bottle of blood cultures is positive for Kocuria Kristinae. -Repeat blood cultures no growth thus far, suspect contaminant RESOLVED: SEPSIS IV infiltrate of right hand-resolved DISPOSITION: D/c home today to f/u with PCP, continue oral abx. TIME SPENT ON DISCHARGE: 35 mins Vital Signs/I&Os Vital Signs Date Time Temp Pulse Resp B/P (MAP) Pulse Ox O2 Delivery O2 Flow Rate FiO2 01/21/21 09:22 98.9 82 20 124/58 (80) 95 01/20/21 20:06 Room Air I&O- Last 24 Hours up to 6 AM 01/21/21 06:00 Intake Total 1750 ml Output Total 1400 ml Balance 350 ml Laboratory Data Labs 24H Laboratory Tests 2 01/21/21 08:17: Nucleated Red Blood Cells % (auto) 0.0, D-Dimer, Quantitative 1423.94H, Anion Gap 7L, Glomerular Filtration Rate > 60.0, Calcium Level 8.1L, Ferritin 1118H, Total Bilirubin 0.5, Aspartate Amino Transf (AST/SGOT) 34, Alanine Aminotransferase (ALT/SGPT) 29, Alkaline Phosphatase 75, Total Protein 6.4, Albumin 2.5L, Albumin/Globulin Ratio 0.6L CBC/BMP Laboratory Tests 01/21/21 08:17 Microbiology Microbiology 01/19/21 Gram Stain - Final, Resulted 01/19/21 Sputum Culture, Resulted Pending 01/18/21 Blood Culture - Preliminary, Resulted No Growth after 72 hours. All specime... 01/17/21 Blood Culture - Preliminary, Resulted No Growth after 72 hours. All specime... 01/14/21 Gram Stain - Final, Complete 01/14/21 Wound Culture - Final, Complete Staph.aureus Methicillin Resis 01/13/21 Blood Culture - Final, Complete NO GROWTH AFTER 5 DAYS 01/13/21 Blood Culture - Final, Complete NO GROWTH AFTER 5 DAYS Discharge Medications Scheduled Azelastine HCl (Azelastine HCl) 0.1% Angela.pump, 1 SPRAY NARES BID, (Reported) Baclofen (Baclofen) 20 Mg Tablet, 20 MG PO Q8H, (Reported) Docusate Sodium (Colace) 100 Mg Capsule, 100 MG PO BID Fenofibrate Nanocrystallized (Tricor) 145 Mg Tablet, 145 MG PO DAILY, (Reported) Fluticasone Propionate (Fluticasone Propionate) 15.8 Ml Angela.susp, 1 SPRAY NARES BID, (Reported) Fluticasone/Vilanterol (Breo Ellipta 100-25 Mcg INH) 1 Each Blst.w.dev, 1 PUFF INH DAILY, (Reported) Levothyroxine Sodium (Synthroid) 112 Mcg Tablet, 112 MCG PO DAILY, (Reported) Meloxicam (Meloxicam) 15 Mg Tablet, 15 MG PO QHS, (Reported) Pantoprazole Sodium (Pantoprazole Sodium) 40 Mg Tablet.dr, 40 MG PO BID, (Reported) Pravastatin Sodium (Pravastatin Sodium) 40 Mg Tablet, 40 MG PO DAILY, (Reported) Pregabalin (Lyrica) 150 Mg Capsule, 150 MG PO BID, (Reported) Saccharomyces Boulardii (Probiotic) 250 Mg Capsule, 1 CAP PO BID Sulfamethoxazole/Trimethoprim (Sulfamethoxazole-Tmp Ds Tablet) 1 Each Tablet, 2 TAB PO BID Scheduled PRN Acetaminophen (Acetaminophen) 325 Mg Tablet, 650 MG PO Q6HP PRN for MILD PAIN/fever Albuterol Sulfate (Proair Hfa) 8.5 Gm Hfa.aer.ad, 1 PUFF INH Q4H PRN for SHORTNESS OF BREATH, (Reported) Benzonatate (Benzonatate) 100 Mg Capsule, 100 MG PO TIDP PRN for COUGH Nystatin (Nystatin Powder) 15 Gm Powder, 1 APPLIC TOP BID PRN for RASH, (Reported) APPLIES UNDER BREASTS Polyethylene Glycol 3350 (Miralax) 17 Gm Powd.pack, 1 PKT PO DAILYPRN PRN for CONSTIPATION Trazodone HCl (Trazodone HCl) 100 Mg Tablet, 100 MG PO QHS PRN for SLEEP, (Reported) Allergies Coded Allergies: latex (Verified Allergy, Severe, can't breathe, 05/18/20) Penicillins (Verified Allergy, Intermediate, diarrhea, 05/18/20) Isabell Askew MD Jan 21, 2021 18:41
== END 2021-01-21 13:49 | disposition home or self-care (01) | DRG 871 ==
LOC: M ED 16:41 → M ED INP 01-11 00:38 → EEVIPCON 01-11 00:38 → ENRESERV 01-11 00:56 → M 4MAIN 01-11 01:59
PROVIDERS: ADMIT Family Medicine; ATTEND Internal Medicine
PROC: 02HV33Z Insertion of Infusion Device into Superior Vena Cava, Percutaneous Approach (ICD-10-PCS; principal; 2021-01-18 12:00)
DX: A41.9 Sepsis, unspecified organism (principal); U07.1 COVID-19; L03.314 Cellulitis of groin; J44.9 Chronic obstructive pulmonary disease, unspecified; K21.9 Gastro-esophageal reflux disease without esophagitis; J30.2 Other seasonal allergic rhinitis; E03.9 Hypothyroidism, unspecified; F17.200 Nicotine dependence, unspecified, uncomplicated; E78.00 Pure hypercholesterolemia, unspecified; B95.62 Methicillin resistant Staphylococcus aureus infection as the cause of diseases classified elsewhere; Z96.643 Presence of artificial hip joint, bilateral; Z79.1 Long term (current) use of non-steroidal anti-inflammatories (NSAID); Z79.899 Other long term (current) drug therapy; Z88.0 Allergy status to penicillin; Z91.040 Latex allergy status

== ENCOUNTER → 2021-02-12 | Outpatient (REF) | payer OTHER ==
[~2021-02-12] MED LIST changes: +ACET1TAB55 PO; +BACTDSTA PO; +BENZ-18 PO; +COLA100C5 PO; +MELO15TA28 PO; +MIRA1POW3 PO; +PROAAER10 INH; +PROB250C PO
[2021-02-13 11:25] LABS: BASO # 0.1 10^3/uL (0.0-0.2); BASO % 0.7 % (0.0-1.0); EOS # 0.6 10^3/uL (0.0-0.5); EOS % 7.3 % (0.0-3.0); HEMATOCRIT 34.9 % (36.0-47.0); HEMOGLOBIN 11.2 g/dl (12.0-15.5); LYMPH # 3.1 10^3/uL (1.5-5.0); LYMPH % 37.6 % (24.0-44.0); MEAN CORPUSCULAR HEMOGLOBIN 30.4 pg (27.0-33.0); MEAN CORPUSCULAR HGB CONC 32.1 g/dl (32.0-36.5); MEAN CORPUSCULAR VOLUME 94.8 fl (80.0-96.0); MONO # 0.7 10^3/uL (0.0-0.8); MONO % 8.6 % (2.0-8.0); NEUTROPHILS # 3.8 10^3/uL (1.5-8.5); NEUTROPHILS % 45.6 % (36.0-66.0); PLATELET COUNT, AUTOMATED 198 10^3/uL (150-450); RED BLOOD COUNT 3.68 10^6/uL (4.00-5.40); WHITE BLOOD COUNT 8.4 10^3/uL (4.0-10.0)
[2021-02-13 12:01] LABS: ALBUMIN 3.2 GM/DL (3.2-5.2); ALT/SGPT 56 U/L (12-78); BILIRUBIN,TOTAL 0.3 MG/DL (0.2-1.0); BLOOD UREA NITROGEN 10 MG/DL (7-18); CALCIUM LEVEL 8.8 MG/DL (8.5-10.1); CARBON DIOXIDE LEVEL 27 MEQ/L (21-32); CHLORIDE LEVEL 111 MEQ/L (98-107); CREATININE FOR GFR 0.78 MG/DL (0.55-1.30); GLOMERULAR FILTRATION RATE > 60.0 (>51); GLUCOSE, FASTING 86 MG/DL (70-100); POTASSIUM SERUM 4.1 MEQ/L (3.5-5.1); SODIUM LEVEL 143 MEQ/L (136-145); TOTAL PROTEIN 6.8 GM/DL (6.4-8.2)
== END ==
LOC: M SFHCCLAY 14:27
PROVIDERS: ATTEND Nurse Practitioner Family
DX: L03.90 Cellulitis, unspecified (principal)
CPT/HCPCS: 80053; 85025; G0463

== ENCOUNTER → 2021-06-19 | Outpatient (REF) | payer OTHER | LOC: M LABDRAWC 11:54 | PROVIDERS: ATTEND Physician Assistant Surgical | DX: M54.50 Low back pain, unspecified (principal); M25.552 Pain in left hip; T56.891A Toxic effect of other metals, accidental (unintentional), initial encounter; Z96.643 Presence of artificial hip joint, bilateral ==

== ENCOUNTER → 2021-06-19 | Outpatient (REF) | payer OTHER ==
[2021-06-19 12:03] LABS: BASO # 0.1 10^3/uL (0.0-0.2); BASO % 0.8 % (0.0-1.0); EOS # 0.3 10^3/uL (0.0-0.5); EOS % 3.6 % (0.0-3.0); HEMATOCRIT 40.8 % (36.0-47.0); HEMOGLOBIN 13.5 g/dl (12.0-15.5); LYMPH # 3.2 10^3/uL (1.5-5.0); LYMPH % 37.2 % (24.0-44.0); MEAN CORPUSCULAR HEMOGLOBIN 30.8 pg (27.0-33.0); MEAN CORPUSCULAR HGB CONC 33.1 g/dl (32.0-36.5); MEAN CORPUSCULAR VOLUME 93.2 fl (80.0-96.0); MONO # 0.7 10^3/uL (0.0-0.8); MONO % 8.2 % (2.0-8.0); NEUTROPHILS # 4.3 10^3/uL (1.5-8.5); NEUTROPHILS % 49.6 % (36.0-66.0); PLATELET COUNT, AUTOMATED 210 10^3/uL (150-450); RED BLOOD COUNT 4.38 10^6/uL (4.00-5.40); WHITE BLOOD COUNT 8.7 10^3/uL (4.0-10.0)
[2021-06-19 12:35] LABS: ALBUMIN 3.5 GM/DL (3.2-5.2); ALT/SGPT 35 U/L (12-78); BILIRUBIN,TOTAL 0.2 MG/DL (0.2-1.0); BLOOD UREA NITROGEN 13 MG/DL (7-18); CALCIUM LEVEL 8.6 MG/DL (8.5-10.1); CARBON DIOXIDE LEVEL 30 MEQ/L (21-32); CHLORIDE LEVEL 110 MEQ/L (98-107); CHOLESTEROL LEVEL 215 MG/DL (<200); CHOLESTEROL RISK RATIO 6.323 (<5); CREATININE FOR GFR 0.61 MG/DL (0.55-1.30); FOLATE 8.7 NG/ML (>5.4); GLOMERULAR FILTRATION RATE > 60.0 (>51); GLUCOSE, FASTING 71 MG/DL (70-100); HDL CHOLESTEROL 34 MG/DL (>40); IRON (FE) 82 UG/DL (50-170); LDL CHOLESTEROL 104 MG/DL (<100); NON-HDL-C 181 MG/DL; PERCENT SATURATION 22.4 % (13.2-45.0); POTASSIUM SERUM 4.3 MEQ/L (3.5-5.1); SODIUM LEVEL 142 MEQ/L (136-145); TOTAL IRON BINDING CAPACITY 366 UG/DL (250-450); TRIGLYCERIDES LEVEL 387 MG/DL (<150); VITAMIN B12 LEVEL 356 PG/ML (247-911)
== END ==
LOC: M SFHCCLAY 08:55
PROVIDERS: ATTEND Nurse Practitioner Family
DX: D64.9 Anemia, unspecified (principal); E78.2 Mixed hyperlipidemia; J45.991 Cough variant asthma; E03.9 Hypothyroidism, unspecified; F17.200 Nicotine dependence, unspecified, uncomplicated; M51.36 Other intervertebral disc degeneration, lumbar region; R73.01 Impaired fasting glucose; R94.5 Abnormal results of liver function studies; J32.1 Chronic frontal sinusitis; B37.89 Other sites of candidiasis; Z23 Encounter for immunization

== ENCOUNTER → 2021-12-25 | Outpatient (REF) | payer OTHER ==
[2021-12-25 11:43] LABS: ALBUMIN 3.3 GM/DL (3.2-5.2); ALT/SGPT 46 U/L (12-78); BILIRUBIN,TOTAL 0.2 MG/DL (0.2-1.0); BLOOD UREA NITROGEN 14 MG/DL (7-18); CALCIUM LEVEL 8.8 MG/DL (8.5-10.1); CARBON DIOXIDE LEVEL 28 MEQ/L (21-32); CHLORIDE LEVEL 106 MEQ/L (98-107); CHOLESTEROL LEVEL 170 MG/DL (<200); CHOLESTEROL RISK RATIO 4.594 (<5); CREATININE FOR GFR 0.68 MG/DL (0.55-1.30); GLOMERULAR FILTRATION RATE > 60.0 (>51); GLUCOSE, FASTING 169 MG/DL (70-100); HDL CHOLESTEROL 37 MG/DL (>40); LDL CHOLESTEROL 91 MG/DL (<100); NON-HDL-C 133 MG/DL; POTASSIUM SERUM 4.1 MEQ/L (3.5-5.1); SODIUM LEVEL 138 MEQ/L (136-145); TOTAL PROTEIN 6.5 GM/DL (6.4-8.2); TRIGLYCERIDES LEVEL 209 MG/DL (<150)
[2021-12-25 11:57] LABS: HEMOGLOBIN A1c 5.9 %
== END ==
LOC: M SFHCCLAY 08:35
PROVIDERS: ATTEND Nurse Practitioner Family
DX: E78.2 Mixed hyperlipidemia (principal); D64.9 Anemia, unspecified; J45.991 Cough variant asthma; E03.9 Hypothyroidism, unspecified; F17.200 Nicotine dependence, unspecified, uncomplicated; M51.36 Other intervertebral disc degeneration, lumbar region; R73.01 Impaired fasting glucose; R94.5 Abnormal results of liver function studies; J32.1 Chronic frontal sinusitis; Z23 Encounter for immunization

== ENCOUNTER → 2022-05-22 | Outpatient (REF) | payer OTHER ==
[2022-05-22 17:26] LABS: BASO # 0.1 10^3/uL (0.0-0.2); BASO % 0.7 % (0.0-1.0); EOS # 0.2 10^3/uL (0.0-0.5); EOS % 2.4 % (0.0-3.0); HEMATOCRIT 40.4 % (36.0-47.0); HEMOGLOBIN 13.3 g/dl (12.0-15.5); LYMPH % 46.5 % (24.0-44.0); MEAN CORPUSCULAR HEMOGLOBIN 30.8 pg (27.0-33.0); MEAN CORPUSCULAR HGB CONC 32.9 g/dl (32.0-36.5); MEAN CORPUSCULAR VOLUME 93.5 fl (80.0-96.0); MONO # 0.5 10^3/uL (0.0-0.8); MONO % 5.7 % (2.0-8.0); NEUTROPHILS # 3.8 10^3/uL (1.5-8.5); NEUTROPHILS % 44.4 % (36.0-66.0); PLATELET COUNT, AUTOMATED 209 10^3/uL (150-450); RED BLOOD COUNT 4.32 10^6/uL (4.00-5.40); WHITE BLOOD COUNT 8.6 10^3/uL (4.0-10.0)
[2022-05-22 18:07] LABS: ALBUMIN 3.7 G/DL (3.2-5.2); ALKALINE PHOSPHATASE 110 U/L (46-116); ALT/SGPT 32 U/L (7.0-40); AST/SGOT 42 U/L (<34); BILIRUBIN,TOTAL 0.4 MG/DL (0.3-1.2); BLOOD UREA NITROGEN 14 MG/DL (9-23); CALCIUM LEVEL 8.9 MG/DL (8.5-10.1); CARBON DIOXIDE LEVEL 25 MMOL/L (20-31); CHLORIDE LEVEL 106 MMOL/L (98-107); CHOLESTEROL LEVEL 180 MG/DL (<200); CHOLESTEROL RISK RATIO 3.97 (<5); CREATININE FOR GFR 0.67 MG/DL (0.55-1.30); FREE T4 1.51 NG/DL (0.89-1.76); GLOMERULAR FILTRATION RATE > 60.0 (>51); GLUCOSE, FASTING 75 MG/DL (60-100); HDL CHOLESTEROL 45.3 MG/DL (>40); LDL CHOLESTEROL 99.9 MG/DL (<100); MAGNESIUM LEVEL 1.7 MG/DL (1.8-2.4); NON-HDL-C 135 MG/DL; POTASSIUM SERUM 4.5 MMOL/L (3.5-5.1); SODIUM LEVEL 139 MMOL/L (136-145); THYROID STIMULATING HORMONE 1.482 uIU/ML (0.55-4.78); TOTAL PROTEIN 6.8 G/DL (5.7-8.2); TRIGLYCERIDES LEVEL 174 MG/DL (<150)
[2022-05-22 18:08] LABS: HEMOGLOBIN A1c 5.2 % (4.0-6.0)
== END ==
LOC: M SFHCCLAY 10:12
PROVIDERS: ATTEND Nurse Practitioner Family
DX: E78.2 Mixed hyperlipidemia (principal); D64.9 Anemia, unspecified; J45.991 Cough variant asthma; E03.9 Hypothyroidism, unspecified; F17.200 Nicotine dependence, unspecified, uncomplicated; M51.36 Other intervertebral disc degeneration, lumbar region; R73.01 Impaired fasting glucose; R94.5 Abnormal results of liver function studies; J32.1 Chronic frontal sinusitis; B37.89 Other sites of candidiasis; Z23 Encounter for immunization; E83.42 Hypomagnesemia

== ENCOUNTER → 2022-06-11 | Outpatient (CLI) | payer OTHER | LOC: M SLEEP HO 11:36 | PROVIDERS: ATTEND Nurse Practitioner Family | DX: G47.33 Obstructive sleep apnea (adult) (pediatric) (principal) ==

== ENCOUNTER → 2022-06-30 | Outpatient (CLI) | payer OTHER | LOC: M RAD 17:03 | PROVIDERS: ATTEND Nurse Practitioner Family | DX: Z87.891 Personal history of nicotine dependence (principal) ==

== ENCOUNTER → 2022-10-27 | Outpatient (CLI) | payer OTHER | LOC: M RAD 08:35 | PROVIDERS: ATTEND Nurse Practitioner Family | DX: F17.228 Nicotine dependence, chewing tobacco, with other nicotine-induced disorders (principal); R93.89 Abnormal findings on diagnostic imaging of other specified body structures ==

== ENCOUNTER → 2023-05-20 | Outpatient (REF) | payer OTHER ==
[2023-05-20 16:45] LABS: BASO # 0.1 10^3/uL (0.0-0.2); BASO % 0.7 % (0.0-1.0); EOS # 0.2 10^3/uL (0.0-0.5); EOS % 3.2 % (0.0-3.0); HEMATOCRIT 37.5 % (36.0-47.0); HEMOGLOBIN 12.7 g/dl (12.0-15.5); LYMPH # 3.2 10^3/uL (1.5-5.0); LYMPH % 45.9 % (24.0-44.0); MEAN CORPUSCULAR HEMOGLOBIN 31.6 pg (27.0-33.0); MEAN CORPUSCULAR HGB CONC 33.9 g/dl (32.0-36.5); MEAN CORPUSCULAR VOLUME 93.3 fl (80.0-96.0); MONO # 0.5 10^3/uL (0.0-0.8); MONO % 6.6 % (2.0-8.0); NEUTROPHILS % 43.2 % (36.0-66.0); PLATELET COUNT, AUTOMATED 170 10^3/uL (150-450); RED BLOOD COUNT 4.02 10^6/uL (4.00-5.40)
[2023-05-20 17:15] LABS: HEMOGLOBIN A1c 5.3 % (4.0-6.0); THYROID STIMULATING HORMONE 2.788 uIU/ML (0.55-4.78)
[2023-05-20 17:17] LABS: ALBUMIN 3.6 G/DL (3.2-5.2); ALKALINE PHOSPHATASE 84 U/L (46-116); ALT/SGPT 35 U/L (7.0-40); AST/SGOT 30 U/L (<34); BILIRUBIN,TOTAL 0.4 MG/DL (0.3-1.2); BLOOD UREA NITROGEN 20 MG/DL (9-23); CALCIUM LEVEL 8.7 MG/DL (8.5-10.1); CARBON DIOXIDE LEVEL 26 MMOL/L (20-31); CHLORIDE LEVEL 109 MMOL/L (98-107); CHOLESTEROL LEVEL 175 MG/DL (<200); CHOLESTEROL RISK RATIO 3.79 (<5); CREATININE FOR GFR 0.86 MG/DL (0.55-1.30); GLOMERULAR FILTRATION RATE > 60.0 (>51); GLUCOSE, FASTING 116 MG/DL (60-100); HDL CHOLESTEROL 46.1 MG/DL (>40); LDL CHOLESTEROL 102.5 MG/DL (<100); MAGNESIUM LEVEL 1.6 MG/DL (1.8-2.4); NON-HDL-C 128.9 MG/DL; SODIUM LEVEL 139 MMOL/L (136-145); TOTAL 25(OH) VITAMIN D 14.6 NG/ML (20.0-100.0); TOTAL PROTEIN 6.5 G/DL (5.7-8.2); TRIGLYCERIDES LEVEL 132 MG/DL (<150)
== END ==
LOC: M SFHCCLAY 14:10
PROVIDERS: ATTEND Nurse Practitioner Family
DX: E78.2 Mixed hyperlipidemia (principal); D64.9 Anemia, unspecified; J45.991 Cough variant asthma; E03.9 Hypothyroidism, unspecified; F17.200 Nicotine dependence, unspecified, uncomplicated; M51.36 Other intervertebral disc degeneration, lumbar region; R73.01 Impaired fasting glucose; R94.5 Abnormal results of liver function studies; G47.33 Obstructive sleep apnea (adult) (pediatric); Z96.649 Presence of unspecified artificial hip joint; F17.228 Nicotine dependence, chewing tobacco, with other nicotine-induced disorders; R93.89 Abnormal findings on diagnostic imaging of other specified body structures; Z79.899 Other long term (current) drug therapy

== ENCOUNTER 2023-07-23 10:28 | Day surgery (SDC) | payer OTHER ==
[~2023-07-23] VITALS: Ht 162.6 cm; Wt 105.2 kg
[~2023-07-23 10:28] MED LIST changes: +ERGO500029 PO; -MIRA1POW3 PO; +MIRA33506 PO; +PROA1AER2 INH
[2023-07-23] MEDS: NS 1,000 ML IV ONE (11:10)
[2023-07-23] MEDS ORDERED: propofoL 200 MG/20 ML VIAL As Ordered ONE (12:06)
[2023-07-23] MEDS ORDERED: LIDOCAINE 2% 100MG/5ML SDV (FOR ANES.) As Ordered ONE (12:13)
[2023-07-23 13:07] VITALS: TEMP 96.7
[2023-07-23 13:15] VITALS: BP 135/87; O2SAT 100
== END 2023-07-23 13:25 | disposition home or self-care (01) ==
LOC: M OPP 10:28
PROVIDERS: ATTEND Surgery
DX: Z86.010 Personal history of colon polyps (principal); K63.5 Polyp of colon; K57.30 Diverticulosis of large intestine without perforation or abscess without bleeding; E03.9 Hypothyroidism, unspecified; J44.9 Chronic obstructive pulmonary disease, unspecified; F17.290 Nicotine dependence, other tobacco product, uncomplicated; Z79.02 Long term (current) use of antithrombotics/antiplatelets; Z79.1 Long term (current) use of non-steroidal anti-inflammatories (NSAID); Z79.51 Long term (current) use of inhaled steroids; Z79.890 Hormone replacement therapy; Z79.891 Long term (current) use of opiate analgesic; Z79.899 Other long term (current) drug therapy; Z88.0 Allergy status to penicillin; Z91.040 Latex allergy status

== ENCOUNTER → 2023-11-04 | Outpatient (CLI) | payer OTHER | LOC: M RAD 17:57 | PROVIDERS: ATTEND Nurse Practitioner Family | DX: Z53.9 Procedure and treatment not carried out, unspecified reason (principal) ==

== ENCOUNTER → 2023-11-25 | Outpatient (REF) | payer OTHER ==
[2023-11-25 18:48] LABS: ALKALINE PHOSPHATASE 90 U/L (46-116); ALT/SGPT 33 U/L (7.0-40); AST/SGOT 28 U/L (<34); BILIRUBIN,TOTAL 0.6 MG/DL (0.3-1.2); BLOOD UREA NITROGEN 24 MG/DL (9-23); CALCIUM LEVEL 9.6 MG/DL (8.5-10.1); CARBON DIOXIDE LEVEL 28 MMOL/L (20-31); CHLORIDE LEVEL 108 MMOL/L (98-107); CREATININE FOR GFR 0.99 MG/DL (0.55-1.30); GLOMERULAR FILTRATION RATE > 60.0 (>51); GLUCOSE, FASTING 75 MG/DL (60-100); IRON (FE) 97 UG/DL (50-170); POTASSIUM SERUM 4.9 MMOL/L (3.5-5.1); SODIUM LEVEL 139 MMOL/L (136-145); TOTAL PROTEIN 7.3 G/DL (5.7-8.2)
[2023-11-25 18:49] LABS: PERCENT SATURATION 24.3 % (13.2-45.0); TOTAL IRON BINDING CAPACITY 400 UG/DL (250-425)
[2023-11-25 18:51] LABS: TOTAL 25(OH) VITAMIN D 41.6 NG/ML (20.0-100.0)
== END ==
LOC: M SFHCCLAY 15:10
PROVIDERS: ATTEND Nurse Practitioner Family
DX: E78.2 Mixed hyperlipidemia (principal); D64.9 Anemia, unspecified; E03.9 Hypothyroidism, unspecified; R73.01 Impaired fasting glucose; R94.5 Abnormal results of liver function studies; G47.33 Obstructive sleep apnea (adult) (pediatric); Z96.649 Presence of unspecified artificial hip joint; R93.89 Abnormal findings on diagnostic imaging of other specified body structures; F17.200 Nicotine dependence, unspecified, uncomplicated; F17.228 Nicotine dependence, chewing tobacco, with other nicotine-induced disorders; M51.36 Other intervertebral disc degeneration, lumbar region; J45.991 Cough variant asthma; Z79.899 Other long term (current) drug therapy

== ENCOUNTER → 2023-12-10 | Outpatient (CLI) | payer OTHER | LOC: M RAD 15:30 | PROVIDERS: ATTEND Nurse Practitioner Family | DX: Z12.2 Encounter for screening for malignant neoplasm of respiratory organs (principal); F17.200 Nicotine dependence, unspecified, uncomplicated; F17.218 Nicotine dependence, cigarettes, with other nicotine-induced disorders; F17.228 Nicotine dependence, chewing tobacco, with other nicotine-induced disorders ==

== ENCOUNTER 2024-01-14 10:40 | Day surgery (SDC) | payer OTHER ==
[~2024-01-14] VITALS: Ht 162.6 cm; Wt 108.9 kg
[~2024-01-14 10:40] MED LIST changes: +NS 1,000 ML IV ONE
[2024-01-14] MEDS ORDERED: propofoL 200 MG/20 ML VIAL As Ordered ONE (12:39)
[2024-01-14] MEDS ORDERED: GLYCOPYRROLATE INJ 0.2 MG/ML 2 ML VIAL As Ordered ONE (12:39)
[2024-01-14 13:53] VITALS: TEMP 96.9
[2024-01-14 14:06] VITALS: BP 102/75; O2SAT 98
== END 2024-01-14 14:08 | disposition home or self-care (01) ==
LOC: M OPP 10:40
PROVIDERS: ATTEND Surgery
DX: K30 Functional dyspepsia (principal); K21.9 Gastro-esophageal reflux disease without esophagitis; J44.89 Other specified chronic obstructive pulmonary disease; E03.9 Hypothyroidism, unspecified; E78.00 Pure hypercholesterolemia, unspecified; Z79.899 Other long term (current) drug therapy; Z79.51 Long term (current) use of inhaled steroids; Z79.890 Hormone replacement therapy; F17.210 Nicotine dependence, cigarettes, uncomplicated; Z90.710 Acquired absence of both cervix and uterus; Z88.0 Allergy status to penicillin; Z91.040 Latex allergy status
CPT/HCPCS: 43235; J1596

== ENCOUNTER → 2025-04-04 | Outpatient (REF) | payer MEDICARE ==
[~2025-04-04] MED LIST changes: -AMBI10TA PO; -BACTDSTA PO; -NS 1,000 ML IV ONE; +NYST1POW3 TOP; -NYST1POW9 TOP; -PRAV40TA2 PO; +PRAV40TA85 PO; +SULF-8 PO; +ZOLP-533 PO
[2025-04-04 12:06] LABS: BASO # 0.1 10^3/uL (0.0-0.2); BASO % 0.9 % (0.0-1.0); EOS # 0.3 10^3/uL (0.0-0.5); EOS % 3.6 % (0.0-3.0); LYMPH # 3.0 10^3/uL (1.5-5.0); LYMPH % 39.2 % (24.0-44.0); MONO # 0.5 10^3/uL (0.0-0.8); MONO % 6.3 % (2.0-8.0); NEUTROPHILS # 3.8 10^3/uL (1.5-8.5); NEUTROPHILS % 49.9 % (36.0-66.0); PLATELET COUNT, AUTOMATED 239 10^3/uL (150-450)
[2025-04-04 12:13] LABS: ALT/SGPT 39 U/L (7.0-40); AST/SGOT 34 U/L (<34); C REACTIVE PROTEIN QUANTITATIV < 0.50 MG/DL (<1.0); CALCIUM LEVEL 8.9 MG/DL (8.5-10.1); CARBON DIOXIDE LEVEL 28 MMOL/L (20-31); CHLORIDE LEVEL 107 MMOL/L (98-107); CHOLESTEROL LEVEL 247 MG/DL (<200); CHOLESTEROL RISK RATIO 5.41 (<5); CREATININE FOR GFR 0.71 MG/DL (0.55-1.30); GLOMERULAR FILTRATION RATE > 90.0 (>51); IRON (FE) 65 UG/DL (50-170); LDL CHOLESTEROL 136.2 MG/DL (<100); MAGNESIUM LEVEL 1.7 MG/DL (1.8-2.4); NON-HDL-C 201.4 MG/DL; PERCENT SATURATION 19.5 % (13.2-45.0); POTASSIUM SERUM 4.3 MMOL/L (3.5-5.1); RHEUMATOID FACTOR QUANT < 3.5 IU/ML (<14); SODIUM LEVEL 141 MMOL/L (136-145); TRIGLYCERIDES LEVEL 326 MG/DL (<150)
[2025-04-04 12:17] LABS: ESTIMATED AVERAGE GLUCOSE 108.0 MG/DL (60-110)
[2025-04-04 12:36] LABS: FREE T4 1.12 NG/DL (0.89-1.76); TOTAL 25(OH) VITAMIN D 53.3 NG/ML (20.0-100.0); VITAMIN B12 LEVEL 591 PG/ML (211-911)
== END ==
LOC: M SFHCCLAY 08:55
PROVIDERS: ATTEND Nurse Practitioner Family
DX: F17.200 Nicotine dependence, unspecified, uncomplicated (principal); Z12.2 Encounter for screening for malignant neoplasm of respiratory organs; F17.218 Nicotine dependence, cigarettes, with other nicotine-induced disorders; F17.228 Nicotine dependence, chewing tobacco, with other nicotine-induced disorders; M54.50 Low back pain, unspecified; J45.991 Cough variant asthma; L91.8 Other hypertrophic disorders of the skin; E78.2 Mixed hyperlipidemia; D64.9 Anemia, unspecified; E03.9 Hypothyroidism, unspecified; R73.01 Impaired fasting glucose; R94.5 Abnormal results of liver function studies; G47.33 Obstructive sleep apnea (adult) (pediatric); Z96.649 Presence of unspecified artificial hip joint; R93.89 Abnormal findings on diagnostic imaging of other specified body structures; M25.552 Pain in left hip; Z79.899 Other long term (current) drug therapy

== ENCOUNTER → 2025-04-04 | Outpatient (CLI) | payer MEDICARE | LOC: M CLY 09:27 | PROVIDERS: ATTEND Nurse Practitioner Family | DX: M25.552 Pain in left hip (principal); Z96.642 Presence of left artificial hip joint ==